=== PATIENT | male | born 1940 | race Caucasian/White ===

== ENCOUNTER 2020-10-22 09:32 | Outpatient (CLI) | payer MEDICARE, OTHER, SELFPAY ==
--- NOTE | 2020-10-22 09:53 | CT_ITS ---
WS: [id number] CTA scan of the chest with IV contrast. Additional two-dimensional coronal and sagittal reconstructio n and MIP images was performed. 10/22/2020 Clinical Data: SHORTNESS OF BREATH Comparison: None. DLP: 874.[address] scans at [facility] use at least one of these dose optimization techniques: automat ed exposure control; mA and/or kV adjustment per patient size (includes targeted exams where dose is matched to clinical indication); or iterative reconstruction. Findings: The central pulmonary arteries and peripheral pulmonary arteries fill normally with no evidence of in traluminal filling defects. No pulmonary embolic disease is noted. No nodules, masses or effusions are seen. The heart size is normal with no pericardial effusion. No p neumonia or pneumothorax is seen. Midline sternotomy sutures are present. The pulmonary arterial syst em and thoracic aorta demonstrate no abnormalities or dilatations. There is no axillary or significan t mediastinal adenopathy. The thyroid gland shows normal enhancement. The trachea bifurcates into the bronchi. The gallbladder wall is calcified with gallstones within. The visualized liver, spleen, adrenal gland s and pancreas are nonremarkable. The bones of the thoracic and upper lumbar spine show moderate osteoarthritis of the vertebral bodies .. CT/CT angio chest PE protcl [id number] Impression: 1. Negative for pulmonary embolic disease. 2. Cholelithiasis.
[2020-10-22 10:38] LABS: Blood Urea Nitrogen 9 mg/dL (8-23)
[2020-10-22] MEDS: iohexol 350 mg/mL 100 mL Btl IV (10:50)
== END 2020-10-22 09:33 | disposition home or self-care (01) ==
PROVIDERS: PCP Internal Medicine; Visit Provider Physician Assistant
DX: R06.02 Shortness of breath (principal); K80.20 Calculus of gallbladder without cholecystitis without obstruction
CPT/HCPCS: 71275; 82565; 84520; Q9967

== ENCOUNTER → 2021-07-08 11:26 | Outpatient (BNVA) | payer MEDICARE, SELFPAY | PROVIDERS: PCP Internal Medicine; Visit Provider Specialist | DX: G30.9 Alzheimer's disease, unspecified (principal); F02.80 Dementia in other diseases classified elsewhere, unspecified severity, without behavioral disturbance, psychotic disturbance, mood disturbance, and anxiety; F42.9 Obsessive-compulsive disorder, unspecified; R42 Dizziness and giddiness; R26.81 Unsteadiness on feet | CPT/HCPCS: 96116; 99204; 99205 ==

== ENCOUNTER 2021-07-27 06:00 | Outpatient (RCR) | payer MEDICARE, SELFPAY | END 2021-08-06 23:59 | disposition home or self-care (01) | LOC: SPT 06:00 | PROVIDERS: PCP Specialist; Referring Provider Specialist; Visit Provider Specialist | DX: R26.81 Unsteadiness on feet (principal); R42 Dizziness and giddiness | CPT/HCPCS: 97112; 97162 ==

== ENCOUNTER → 2021-09-07 10:49 | Outpatient (BNVA) | payer MEDICARE, SELFPAY | PROVIDERS: PCP Physician Assistant; Visit Provider Specialist | DX: G30.9 Alzheimer's disease, unspecified (principal); F02.80 Dementia in other diseases classified elsewhere, unspecified severity, without behavioral disturbance, psychotic disturbance, mood disturbance, and anxiety; F42.9 Obsessive-compulsive disorder, unspecified | CPT/HCPCS: 99213; 99214 ==

== ENCOUNTER 2024-05-05 09:17 | Emergency (ER) | payer MEDICARE, SELFPAY ==
--- NOTE | 2024-05-05 09:23 | XRR_ITS ---
PROCEDURE INFORMATION: Exam: XR Left Hand Exam date and time: 05/05/2024 9:59 AM Age: 83 years old Clinical indication: Injury or trauma; Other: Cat bite; Hand; Left; Additional info: Swelling TECHNIQUE: Imaging protocol: Radiologic exam of the left hand. Views: 3 or more views. COMPARISON: No relevant prior studies available. FINDINGS: Bones/joints: Prominent arthritic changes involve all of the IP joints as well as the 1st carpometacarpal joint. I see no bony fracture. Soft tissues: Prominent soft tissue swelling involves the base of the 2nd finger. The swelling surrounds the 2nd MCP joint. 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
[2024-05-05 09:34] VITALS: BP 159/95; PULSE 72; RESP 16; TEMP 36.8; O2SAT 98
[2024-05-05 10:04] LABS: Basophils % 0.5 %; Eosinophils # 0.1 10^3/uL (0.0-0.8); Eosinophils % 0.9 %; Hematocrit 48.4 % (37-53); Lymphocytes # 2.8 10^3/uL (0.8-4.8); Lymphocytes % 37.1 %; Mean Corpuscular HGB Conc 34.7 g/dL (30-55); Mean Corpuscular Hemoglobin 34.9 pg (27-33); Mean Corpuscular Volume 100.6 fl (82-101); Mean Platelet Volume 10.4 fL (7.4-10.4); Monocytes # 0.9 10^3/uL (0.2-0.9); Monocytes % 11.5 %; Neutrophils # 3.78 10^3/uL (1.8-7.7); Neutrophils % 49.6 %; Nucleated Red Blood Cells % 0 %; Platelet Count 200 10^3/cmm (157-399); Red Blood Count 4.81 10^6/uL (3.85-5.65); Red Cell Distribution Width 12.2 % (12.1-15.1); White Blood Count 7.63 10^3/uL (3.29-11.43)
[2024-05-05 10:10] LABS: Erythrocyte Sedimentation Rate 11 mm/hr (0-10)
--- NOTE | 2024-05-05 10:20 | W.ED.ANIMALB ---
HPI - Animal Bite General: Chief Complaint: Animal Bite Stated Complaint: left hand swelling, sent by kelli charles Time Seen by Provider: 05/05/24 09:24 History of Present Illness: 83-year-old man who was bit by a cat about 6 days ago. He has had some redness. Started having some drainage on the dorsum of his hand about 3 days ago. He has been expressing pus from this since. Over the last day it is swollen up quite a bit and he started having streaking redness up his arm. Because of this he went to urgent care who sent him to the emergency room. No systemic fevers. He says it does not hurt. He has been keeping a Band-Aid over it and it looks like may be some Neosporin and so the skin has become a bit frayed. He has no limitation of movement of his index finger. The majority of the swelling and pus is over the palmar side just over the head of the second metacarpal. Also considerable swelling on the dorsum of the head of the second metacarpal. There is streaking up his forearm on the dorsal side. No cough. No chest pain. No abdominal pain. No nausea or vomiting. Review of Systems Narrative: Constitutional symptoms: Negative except as documented in HPI. Skin symptoms: Negative except as documented in HPI. Eye symptoms: Negative except as documented in HPI. ENMT symptoms: Negative except as documented in HPI. Respiratory symptoms: Negative except as documented in HPI. Cardiovascular symptoms: Negative except as documented in HPI. Gastrointestinal symptoms: Negative except as documented in HPI. Genitourinary symptoms: Negative except as documented in HPI. Musculoskeletal symptoms: Negative except as documented in HPI. Neurologic symptoms: Negative except as documented in HPI. Psychiatric symptoms: Negative except as documented in HPI. Endocrine symptoms: Negative except as documented in HPI. PFSH ED PFSH: Social History Smoking and tobacco/nicotine status: never used tobacco/nicotine Alcohol intake: never Substance/Drug Use: never Physical Exam Narrative: EXAM NARRATIVE: General: Alert, no acute distress. Skin: Warm, dry. Primary site of infection is over the head of the second metacarpal. He has some erythema going up his second digit. Also erythema going down his hand and streaking redness going up his arm. On the palmar side over the head of the second metacarpal there is draining of pus and some D squamatization of the skin. He had had a Band-Aid over this. Looks like it has been being kept wet. There is also some swelling and fluctuance on the dorsal side of his hand there. Head: Normocephalic, atraumatic. Neck: Supple, trachea midline. Eye: Extraocular movements are intact. Ears, nose, mouth and throat: mucosa moist. Cardiovascular: Regular, Normal peripheral perfusion. Respiratory: Lungs are clear to auscultation, respirations are non-labored, breath sounds are equal, Symmetrical chest wall expansion. Gastrointestinal: Soft, Nontender, Non distended Musculoskeletal: Normal ROM, does not appear to be any tendon involvement. No pain with flexion or extension of his second digit. Neurological: Alert and oriented, No focal neurological deficit observed. Psychiatric: Cooperative, appropriate mood & affect. Course Vital Signs: Vital signs: Vital Signs Temperature 98.2 F 05/05/24 09:34 Pulse Rate 72 05/05/24 09:34 Respiratory Rate 16 05/05/24 09:34 Blood Pressure 159/95 05/05/24 09:34 Pulse Oximetry 98 05/05/24 09:34 Oxygen Delivery Me thod Room Air 05/05/24 09:34 MDM - Animal Bite Medical Decision Making Medical decision making: Differential diagnosis including but not limited to and based on the above HPI, review of systems and physical exam: N/A patient with an animal bite: Cellulitis. abscess. osteomyelitis. fracture. foreign body (i.e. tooth) Orders placed to evaluate differential diagnosis based on the above differential, HPI and physical exam Lab Review: Laboratory results were reviewed and interpreted by myself the emergency room physician. No leukocytosis, but patient does have an elevated CRP at 44 and an ESR of 11. Pro-Champ was negative. Lactate was negative. Consultation: I spoke with Dr. Gamez with orthopedics here. He does not do hands but he recommends transfer for surgery and cleanout. Consultation: I spoke with Dr. Hernandez with hand surgery at [facility] in [place]. He recommends transfer to the emergency room there for evaluation and likely surgical cleanout. We discussed the patient is refusing transfer and he has provided information on his clinic and will see the patient Tuesday morning. Recommends Augmentin as an outpatient and agrees with Unasyn. I reviewed the patient's medical record. Reexamination: I have spoken with the patient at length, several different times and he continues to refuse transfer. He continues to say that he must go take care of his animals he does not have anyone to help. I did talk with hand surgery and told him that the patient was refusing. He says he will see the patient in clinic on Tuesday at 8. He does not prefer this his recommendation is for transfer but with that being said if the patient refuses the next best chance for a decent outcome is for him to go to clinic in [facility] on Tuesday. I have discussed this with the patient and he expressed understanding. I have discussed that not going and being evaluated by the hand surgery puts him at risk for sepsis and even . I went back to talk to the patient 1 last time and he has been reconsidering. He seemed to be confused about exactly what the plan would be. His expectation is to go to [place] for evaluation and he plans on coming back tomorrow. My main concern is his ability to transport back. Assessment and plan: Cat bite Abscess Cellulitis ?Patient initially was going to go [facility] despite numerous attempts at encouraging him to be transferred for hand surgeon intervention. Finally I convinced him to go. [facility] [place] and Dr. Lr in the emergency department has accepted the patient. ?IV Unasyn here in the emergency room. I have written a prescription for Augmentin ?Patient being transferred to [facility] in [place] to the emergency room for evaluation by hand surgeon. - Discussed findings and plan with patient. Answered any questions. - All laboratory values were reviewed and interpreted personally by myself, the ER physician - All imaging was reviewed and interpreted personally by myself, the ER physician. - Evaluation and treatment of this problem were appropriate in the emergency setting Lab Data 05/05/24 09:51 05/05/24 09:51 Radiology Impressions Hand X-Ray 05/05/24 09:23 IMPRESSION: Prominent multifocal osteoarthritis with soft tissue swelling of the 2nd finger Laboratory Results WBC 7.63 10^3/uL (3.29-11.43) 05/05/24 09:51 RBC 4.81 10^6/uL (3.85-5.65) 05/05/24 09:51 Hgb 16.80 g/dL (11.27-16.99) 05/05/24 09:51 Hct 48.4 % (37-53) 05/05/24 09:51 MCV 100.6 fl (82-101) 05/05/24 09:51 MCH 34.9 pg (27-33) H 05/05/24 09:51 MCHC 34.7 g/dL (30-55) 05/05/24 09:51 RDW 12.2 % (12.1-15.1) 05/05/24 09:51 Plt Count 200 10^3/cmm (157-399) 05/05/24 09:51 MPV 10.4 fL (7.4-10.4) 05/05/24 09:51 Neut % (Auto) 49.6 % 05/05/24 09:51 Lymph % (Auto) 37.1 % 05/05/24 09:51 [place] % (Auto) 11.5 % 05/05/24 09:51 Eos % (Auto) 0.9 % 05/05/24 09:51 Baso % (Auto) 0.5 % 05/05/24 09:51 Neut # (Auto) 3.78 10^3/uL (1.8-7.7) 05/05/24 09:51 Lymph # (Auto) 2.8 10^3/uL (0.8-4.8) 05/05/24 09:51 [place] # (Auto) 0.9 10^3/uL (0.2-0.9) 05/05/24 09:51 Eos # (Auto) 0.1 10^3/uL (0.0-0.8) 05/05/24 09:51 Baso # (Auto) 0.0 10^3/uL (0.0-0.1) 05/05/24 09:51 Nucleated RBC % (auto) 0 % 05/05/24 09:51 Nucleated RBCs # 0.0 /100WBC 05/05/24 09:51 ESR 11 mm/hr (0-10) H 05/05/24 09:51 Sodium 137 mmol/L (136-145) 05/05/24 09:51 Potassium 4.3 mmol/L (3.5-5.1) 05/05/24 09:51 Chloride 98 mmol/L (98-107) 05/05/24 09:51 Carbon Dioxide 25 mmol/L (22-29) 05/05/24 09:51 Anion Gap 18.3 (5-19) 05/05/24 09:51 BUN 14 mg/dL (8-23) 05/05/24 09:51 Creatinine 1.3 mg/dL (0.7-1.2) H 05/05/24 09:51 GFR Calculation Not Reportable 05/05/24 09:51 Glucose 93 mg/dL (65-115) 05/05/24 09:51 Calculated Osmolality 284 mOsm/kg (285-295) L 05/05/24 09:51 Lactic Acid 1.0 mmol/L (0.5-2.2) 05/05/24 09:51 Calcium 9.2 mg/dL (8.5-10.5) 05/05/24 09:51 Total Bilirubin 0.6 mg/dL (0.15-1.2) 05/05/24 09:51 AST 28 U/L (0-40) 05/05/24 09:51 ALT 10 U/L (0-41) 05/05/24 09:51 Alkaline Phosphatase 110 U/L (40-130) 05/05/24 09:51 C-Reactive Protein 44.0 mg/L (0.0-4.9) H 05/05/24 09:51 Total Protein 7.8 g/dL (6.6-8.7) 05/05/24 09:51 Albumin 3.9 g/dL (3.5-5.2) 05/05/24 09:51 Globulin 3.9 g/dL (1.3-4.6) 05/05/24 09:51 Procalcitonin 0.10 ng/mL (0-0.5) 05/05/24 09:51 All radiology interpretation(s) finalized by discharge Discharge Plan Discharge Patient Disposition: Xfer Short-Term Hosp Clinical Impression: Abscess of hand Cat bite Qualifiers: Encounter type: initial encounter Qualified Code(s): W55.01XA - Bitten by cat, initial encounter Cellulitis Qualifiers: Site of cellulitis: extremity Site of cellulitis of extremity: upper extremity Laterality: right Qualified Code(s): L03.113 - Cellulitis of right upper limb Condition: Stable Referrals: Vi Chaparro PA [Primary Care Provider] - Activity Restrictions/Additional Instructions: Please follow-up with Dr. Kitchen at [facility] in [facility]. Need to be there at 8 AM on TuesdayMay 07. Do not have anything to eat or drink after midnight on Tuesday. [facility] [place] [address] If symptoms worsen, you develop fevers, confusion please return to the emergency room. Thank you for choosing [facility] for your healthcare needs today. Please realize this is an emergency room and that we are providing you with a medical screening exam and this may not be complete and all inclusive of all the testing and or work up that you may need to determine your ailment or severity of your illness. You have been screened and evaluated and felt safe for discharge. Health conditions do change or evolve sometimes and as such it is important that you follow up with your Primary Doctor to be re checked, 3-5 days is a general good time frame for follow up. You are always welcome to return to the ED for re assessment if your symptoms are worsening or you have new concerns Coding Level of Care Code ED Supervisor Finishing Room for Lyly Jerry
[2024-05-05 10:24] LABS: Alanine Aminotransferase 10 U/L (0-41); Albumin Level 3.9 g/dL (3.5-5.2); Alkaline Phosphatase 110 U/L (40-130); Anion Gap 18.3 (5-19); Aspartate Amino Transferase 28 U/L (0-40); Blood Urea Nitrogen 14 mg/dL (8-23); Calcium 9.2 mg/dL (8.5-10.5); Carbon Dioxide 25 mmol/L (22-29); Chloride 98 mmol/L (98-107); Creatinine Clr Calc Pharmacy 40.0529; Globulin 3.9 g/dL (1.3-4.6); Glucose 93 mg/dL (65-115); Osmolality Calculated 284 mOsm/kg (285-295); Potassium 4.3 mmol/L (3.5-5.1); Sodium 137 mmol/L (136-145); Total Bilirubin 0.6 mg/dL (0.15-1.2); Total Protein 7.8 g/dL (6.6-8.7)
[2024-05-05] MEDS: ampicillin-sulbactam 3 GM in sodium chloride 0.9% (plus) 50 ML IV (10:34)
[2024-05-05 11:40] VITALS: BP 165/95; PULSE 66; RESP 18; TEMP 36.7; O2SAT 97
== END 2024-05-05 13:07 | disposition short-term general hospital (02) ==
PROVIDERS: Family Medicine; Emergency Provider Emergency Medicine; PCP Physician Assistant
DX: L03.114 Cellulitis of left upper limb (principal); L02.512 Cutaneous abscess of left hand; W55.01XA Bitten by cat, initial encounter
CPT/HCPCS: 36415; 73130; 80053; 83605; 84145; 85025; 85651; 86140; 87040; 96365; 99285; J0295

== ENCOUNTER 2024-05-15 12:04 | Emergency (ER) | payer MEDICARE, SELFPAY ==
[2024-05-15 12:14] VITALS: BP 165/103; PULSE 69; RESP 16; TEMP 36.7; O2SAT 98; BMI 21.7
--- NOTE | 2024-05-15 13:14 | W.ED.ANIMALB ---
HPI - Animal Bite General: Chief Complaint: Animal Bite Stated Complaint: Rabies shot Time Seen by Provider: 05/15/24 12:55 PFSH ED PFSH: Social History Smoking and tobacco/nicotine status: never used tobacco/nicotine Alcohol intake: never Substance/Drug Use: never Course Vital Signs: Vital signs: Vital Signs Temperature 98.1 F 05/15/24 12:14 Pulse Rate 69 05/15/24 12:14 Respiratory Rate 16 05/15/24 12:14 Blood Pressure 165/103 05/15/24 12:14 Pulse Oximetry 98 05/15/24 12:14 Oxygen Delivery Me thod Room Air 05/15/24 12:14 Discharge Plan Discharge Condition: Stable Prescriptions: No Action IQN-kbtnwjoxpdqoj-gjvdgsl-caff Tablet PO sotalol 80 mg tablet 80 mg PO BID galantamine 8 mg capsule,ext rel. pellets 24 hr 8 mg PO QAM Qty: 30 2RF Rx Instructions: administer with breakfast. Referrals: Vi Chaparro PA [Primary Care Provider] - Coding Level of Care Code ED Boiler Assistant Operator for Lyly Jerry
--- NOTE | 2024-05-15 13:17 | W.ED.RECABL ---
HPI - Recheck/Abnormal Lab/Rx General: Chief Complaint: Animal Bite Stated Complaint: Rabies shot Time Seen by Provider: 05/15/24 12:55 Source: patient Mode of arrival: ambulatory Limitations: no limitations History of Present Illness: Patient is an 83-year-old male who presents to the ED today requesting a repeat rabies vaccination. Patient was initially seen on 05/05 for an infection from a cat bite to his left hand. He was subsequently seen by [facility] hand surgeon where he had surgery performed. He states prior to discharge he was given a rabies vaccination and was given a post it note that said days 0, 3, 7, 14 . No actual schedule of dates provided. He has discharge paperwork that shows rabies vaccination given on 05/07 for his day 0 . That would make him due for his day 3 shot on 05/10 which he missed. He is here now on 05/15 which is a day late for his day 7 shot. States cat bite surgical site is healing well and is bandaged/splinted today. MD complaint: other (repeat rabies vaccination) Initial visit for: animal bite Returns today for: rabies shot Symptoms since prior visit: no new symptoms Associated symptoms: none Review of Systems Const: Denies: fever(s) GI: Denies: abdominal pain, vomiting or diarrhea Neuro: Denies: headache(s) PFSH ED PFSH: Social History Smoking and tobacco/nicotine status: never used tobacco/nicotine Alcohol intake: never Substance/Drug Use: never Physical Exam Const: COMMON NORMALS: no acute distress, average body habitus, patient oriented x3, no limitations, healthy appearing, alert and well nourished Extremity: NARRATIVE EXTREMITY EXAM: L hand is bandaged/splinted from his recent surgery; states he is receiving local wound care and everything seems to be healing well-this was not removed on today's visit as he has no complaints Neuro: COMMON NORMALS: patient oriented x3 SENSORIUM/ORIENTATION: Yes alert Course Vital Signs: Vital signs: Vital Signs Temperature 98.1 F 05/15/24 12:14 Pulse Rate 69 05/15/24 12:14 Respiratory Rate 16 05/15/24 12:14 Blood Pressure 165/103 05/15/24 12:14 Pulse Oximetry 98 05/15/24 12:14 Oxygen Delivery Me thod Room Air 05/15/24 12:14 MDM - Recheck/Abnormal Lab/Rx Medical Decision Making Patient missed his day 3 shot so today will count as that. He will then be scheduled four days from now for his day 7 and seven days following this for his day 14 . No radiology studies performed this visit Discharge Plan Discharge Patient Disposition: Home Clinical Impression: Encounter for repeat administration of rabies vaccination Condition: Stable Prescriptions: No Action YYK-qfytvuesitxek-odghcpq-caff Tablet PO sotalol 80 mg tablet 80 mg PO BID galantamine 8 mg capsule,ext rel. pellets 24 hr 8 mg PO QAM Qty: 30 2RF Rx Instructions: administer with breakfast. Discharge Orders: Discharge ED (Routine); Ordered 05/15/24 Ordered By: Steffanie Saenz Referrals: Vi Chaparro PA [Primary Care Provider] - Activity Restrictions/Additional Instructions: As we discussed you missed your day 3 rabies vaccination so today's shot will count as that. You will be given a schedule for your new day 7 and day 14 shot. Coding Level of Care Code ED Research Fellow for Lyly Jerry
[2024-05-15] MEDS: rabies vaccine 2.5 unit SDV IM (13:38)
== END 2024-05-15 14:15 | disposition home or self-care (01) ==
PROVIDERS: Emergency Provider Physician Assistant; PCP Physician Assistant
DX: Z29.14 Encounter for prophylactic rabies immune globulin (principal)
CPT/HCPCS: 90471; 90675; 99284

== ENCOUNTER 2024-05-19 07:16 | Emergency (ER) | payer MEDICARE, SELFPAY ==
[2024-05-19 07:21] VITALS: BP 139/76; PULSE 65; RESP 16; TEMP 36.6; O2SAT 95
[2024-05-19] MEDS: rabies vaccine 2.5 unit SDV IM (07:32)
--- NOTE | 2024-05-19 07:40 | ED_ITS ---
HPI - Recheck/Abnormal Lab/Rx General: Chief Complaint: Recheck/Abnormal Lab/Rx Stated Complaint: Rabies Shot Time Seen by Provider: 05/19/24 07:21 Source: patient Mode of arrival: ambulatory History of Present Illness: 83-year-old male previously seen for cat bite returns for rabies vaccine this is number for rabies vaccine for him. He was transferred out for a washout of an infected joint that is doing well he is following up with hand surgery as a splint on his hand PFS ED PFSH: Social History Smoking and tobacco/nicotine status: never used tobacco/nicotine Alcohol intake: never Substance/Drug Use: never Physical Exam Narrative: EXAM NARRATIVE: No acute distress awake and alert splint on the left hand Course Vital Signs: Vital signs: Vital Signs Temperature 97.9 F 05/19/24 07:21 Pulse Rate 65 05/19/24 07:21 Respiratory Rate 16 05/19/24 07:21 Blood Pressure 139/76 05/19/24 07:21 Pulse Oximetry 95 05/19/24 07:21 Oxygen Delivery Me thod Room Air 05/19/24 07:21 MDM - Recheck/Abnormal Lab/Rx Medical Decision Making Rabies vaccine given patient advised to follow-up with the last rabies vaccines infusion center. Medical Records I reviewed the patient's medical records. No radiology studies performed this visit Discharge Plan Discharge Patient Disposition: Home Clinical Impression: Encounter for repeat administration of rabies vaccination Condition: Stable Prescriptions: No Action [id number]-iyiofbfaygmwj-hjcppmf-caff Tablet PO sotalol 80 mg tablet 80 mg PO BID galantamine 8 mg capsule,ext rel. pellets 24 hr 8 mg PO QAM Qty: 30 2RF Rx Instructions: administer with breakfast. Discharge Orders: Discharge ED (Routine); Ordered 05/19/24 Ordered By: Garth Victoria Referrals: Vi Chaparro PA [Primary Care Provider] - Discharge Diet: Usual diet Discharge Activity: Resume usual activity Patient Instructions: Opioid Safety, Pain Management Activity Restrictions/Additional Instructions: You were seen today for repeat administration of rabies vaccine. Recommend you complete your rabies vaccine series at the outpatient infusion clinic. Coding Level of Care Code ED Territory Account Manager for Lyly Jerry
== END 2024-05-19 07:47 | disposition home or self-care (01) ==
PROVIDERS: Emergency Provider Family Medicine; PCP Physician Assistant
DX: Z29.14 Encounter for prophylactic rabies immune globulin (principal); Z20.3 Contact with and (suspected) exposure to rabies; Z23 Encounter for immunization; W55.01XA Bitten by cat, initial encounter
CPT/HCPCS: 90471; 90675; 99283

== ENCOUNTER 2024-05-26 09:18 | Emergency (ER) | payer MEDICARE, SELFPAY ==
[2024-05-26 09:37] VITALS: BP 159/78; PULSE 61; RESP 18; TEMP 36.7; O2SAT 99
[2024-05-26] MEDS: rabies vaccine 2.5 unit SDV IM (09:49)
--- NOTE | 2024-05-26 10:18 | ED_ITS ---
HPI - General Adult General: Chief complaint: General Medical Stated complaint: needs final rabies shot Time Seen by Provider: 05/26/24 09:33 History of Present Illness: 83-year-old male presents emergency room meaning of rabies vaccination is less than his series. No complaints of problems with previous vaccinations PFS ED PFSH: Social History Smoking and tobacco/nicotine status: never used tobacco/nicotine Alcohol intake: never Substance/Drug Use: never Physical Exam Const: COMMON NORMALS: no acute distress GENERAL APPEARANCE: cooperative and comfortable ORIENTATION/CONSCIOUSNESS: Yes awake, Yes oriented to person, Yes oriented to place and Yes oriented to time HENMT: COMMON NORMALS: normocephalic, atraumatic and hearing grossly normal bilaterally HEAD & SCALP: normocephalic and atraumatic Resp: COMMON NORMALS: normal respiratory effort and No retractions Neuro: SENSORIUM/ORIENTATION: Yes oriented to person, Yes oriented to place and Yes oriented to time Course Vital Signs: Vital signs: Vital Signs Temperature 98.1 F 05/26/24 09:37 Pulse Rate 61 05/26/24 09:37 Respiratory Rate 18 05/26/24 09:37 Blood Pressure 159/78 05/26/24 09:37 Pulse Oximetry 99 05/26/24 09:37 Oxygen Delivery Me thod Room Air 05/26/24 09:37 MDM - General Adult Medical Decision Making Completed rabies vaccine series follow-up with primary care No radiology studies performed this visit Discharge Plan Discharge Patient Disposition: Home Clinical Impression: Encounter for repeat administration of rabies vaccination Condition: Stable Prescriptions: No Action YOG-esqvclixqgmck-oxekndl-caff Tablet PO sotalol 80 mg tablet 80 mg PO BID galantamine 8 mg capsule,ext rel. pellets 24 hr 8 mg PO QAM Qty: 30 2RF Rx Instructions: administer with breakfast. Discharge Orders: Discharge ED (Routine); Ordered 05/26/24 Ordered By: Garth Victoria Referrals: Vi Chaparro PA [Primary Care Provider] - Discharge Diet: Usual diet Discharge Activity: Resume usual activity Patient Instructions: Rabies Vaccine (By injection) (Imovax Rabies, RabAvert), Opioid Safety, Pain Management Activity Restrictions/Additional Instructions: Thank you for choosing [facility] for your healthcare needs today. It is very important that you follow up as instructed or that you return to the Emergency Department should you have concerns or if your condition changes or worsens in any way. Follow-up with your primary care doctor Coding Level of Care Code ED Electrical Instrument Technician for Lyly Jerry
[2024-05-26 10:25] VITALS: BP 155/97; PULSE 58; O2SAT 97
== END 2024-05-26 10:26 | disposition home or self-care (01) ==
PROVIDERS: Emergency Provider Family Medicine; PCP Physician Assistant
DX: Z29.14 Encounter for prophylactic rabies immune globulin (principal); Z20.3 Contact with and (suspected) exposure to rabies; Z23 Encounter for immunization
CPT/HCPCS: 90471; 90675; 99283

== ENCOUNTER 2024-11-08 23:56 | Inpatient (IN) | payer MEDICARE, SELFPAY ==
[2024-11-08 23:57] VITALS: BP 92/57; PULSE 83; RESP 8; O2SAT 97; BMI 25.0
[2024-11-09] VITALS (15 sets, daily range): BP systolic 84–145; BP diastolic 46–84; PULSE 50–92; RESP 14–25; TEMP 36.7–36.9; O2SAT 90–100
--- NOTE | 2024-11-09 00:07 | XRR_ITS ---
PROCEDURE INFORMATION: Exam: XR Right Hip Exam date and time: 11/09/2024 12:30 AM Age: 84 years old Clinical indication: Injury or trauma; Fall; Blunt trauma (contusions or hematomas) and fracture of pelvis & hip; Right; Hip and pelvic region; Traumatic fracture; Neck of femur, midcervical; Not specified; Additional info: Fall R/O fracture TECHNIQUE: Imaging protocol: Radiologic exam of the right hip. Views: 1 view hip with pelvis when performed. COMPARISON: No relevant prior studies available. FINDINGS: Bones/joints: Spiral fracture of the proximal femur with anterior and lateral angulation of the proximal fracture component. Fracture extends through the lesser trochanter where there is comminution and avulsion of the lesser trochanter medially. Substantial impaction of the fracture is seen by at least 7 cm. Diffuse degenerative change throughout the visualized osseous structures. Soft tissues: Unremarkable. Vasculature: Diffuse peripheral arterial vascular disease is noted. XR/XR hip RT 2-3V wo/w pel* [id number] IMPRESSION: Spiral fracture of the proximal femur with extension into the lesser trochanter as highlighted above.
[2024-11-09 01:11] LABS: Basophils % 0.2 %; Eosinophils % 0.1 %; Hematocrit 33.2 % (37-53); Lymphocytes # 1.9 10^3/uL (0.8-4.8); Lymphocytes % 20.8 %; Mean Corpuscular HGB Conc 32.5 g/dL (30-55); Mean Corpuscular Hemoglobin 35.8 pg (27-33); Mean Corpuscular Volume 109.9 fl (82-101); Mean Platelet Volume 11.2 fL (7.4-10.4); Monocytes # 0.6 10^3/uL (0.2-0.9); Monocytes % 6.4 %; Neutrophils # 6.68 10^3/uL (1.8-7.7); Neutrophils % 72.2 %; Nucleated Red Blood Cells % 0 %; Platelet Count 116 10^3/cmm (157-399); Red Blood Count 3.02 10^6/uL (3.85-5.65); Red Cell Distribution Width 12.8 % (12.1-15.1); White Blood Count 9.25 10^3/uL (3.29-11.43)
--- NOTE | 2024-11-09 01:22 | PC.NURSE ---
Grandgaldino Lobato requested update on patient; this nurse and housetrailer servicer explained to grandgaldino that nursing staff could not give out information on patient as he was not in the chart. Luis Alfredo and his friend stated that patient was not in contact with any of his daughters anymore, and Luis Alfredo had POA. Paperwork sent to Kori CHRISTENSENproperties supervisor.
[2024-11-09 01:29] LABS: Blood Urea Nitrogen 17 mg/dL (8-23); Carbon Dioxide 20 mmol/L (22-29); Chloride 104 mmol/L (98-107); Creatinine Clr Calc Pharmacy 41.8722; Glucose 144 mg/dL (65-115); Osmolality Calculated 292 mOsm/kg (285-295); Sodium 139 mmol/L (136-145)
--- NOTE | 2024-11-09 01:39 | CTR_ITS ---
PROCEDURE INFORMATION: Exam: CTA Right Lower Extremity With Contrast Exam date and time: 11/09/2024 2:18 AM Age: 84 years old Clinical indication: Injury or trauma; Fall; Blunt trauma; Lower leg; Bilateral; Additional info: Fall with fractured right hip and no pulses TECHNIQUE: Imaging protocol: Computed tomographic angiography of the right lower extremity with contrast. 3D rendering (Not supervised by radiologist): MIP and/or 3D reconstructed images were created by the technologist. Radiation optimization: All CT scans at this facility use at least one of these dose optimization techniques: automated exposure control; mA and/or kV adjustment per patient size (includes targeted exams where dose is matched to clinical indication); or iterative reconstruction. Contrast material: OMNI 350; Contrast volume: 125 ml; Contrast route: INTRAVENOUS (IV); COMPARISON: CR (LOW EXM, ) 11/09/2024 12:30 AM RADIATION DOSE METRICS: Total DLP (mGy-cm): 968.43 FINDINGS: Celiac trunk and mesenteric arteries: 50-75% narrowing of the mid superior mesenteric artery (series 5, image 92). Multifocal regions of 50% narrowing of the proximal celiac artery 50-75% narrowing of the ostia of the bilateral renal arteries. Right femoral/popliteal arteries: Gradual non opacification beginning of the distal femoral artery extending through the trifurcation. Right infrapopliteal arteries: Non opacified. Other arteries: Severe calcified and noncalcified atherosclerotic disease. Severe peripheral arterial vascular disease. Similar findings of the left femoral/popliteal arteries as well as the left infrarenal popliteal arteries. Veins: Left distal ureterectasis multifocal calcified pelvic phleboliths. Pancreas: Mild pancreatic atrophy. Kidneys and ureters: Multifocal renal atrophy bilaterally. Left pelviectasis. Stomach and bowel: Diverticulosis without evidence of diverticulitis, mild colonic stool burden. Urinary bladder: Extremely dilated bladder with what is likely a left lateral distended diverticulum. Reproductive: Prostatomegaly. Bones/joints: Spiral fracture through the right proximal femur extending into the base of the lesser trochanter where there is comminution and anteromedial displacement of the lesser trochanter. Proximal fracture component is angulated anteriorly and laterally. About 7 cm of impaction is seen. Soft tissues: Associated deep inflammatory change/hematoma adjacent the fracture site. Gallbladder and biliary system: Cholelithiasis with calcifications of the gallbladder wall. CT/[place] [id number] IMPRESSION: 1. Proximal femur fracture as noted above. 2. Likely phase related non opacification of the bilateral lower extremity arteries beginning at the distal femoral arteries bilaterally, given the gradual non opacification of the arterial vasculature. However, this should be correlated with physical exam as thrombosis of the arterial vasculature cannot be entirely excluded. 3. Severe atherosclerotic disease to include the intra-abdominal and peripheral arteries visualized on this examination. 4. 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 Correlate with chronic signs and symptoms of gallbladder dysfunction. 5. Urinary bladder is extremely dilated with regions of pelviectasis and ureterectasis as above. Likely some degree of chronic bladder outlet obstruction given the appearance of the prostate and probable dilated left of midline bladder diverticulum. Consider catheterization in the correct clinical context.
--- NOTE | 2024-11-09 01:40 | PC.NURSE ---
Patient gave this nurse and warehouse assistant Kori verbal consent to update masha Lobato.
--- NOTE | 2024-11-09 02:01 | CTR_ITS ---
PROCEDURE INFORMATION: Exam: CT Cervical Spine Without Contrast Exam date and time: 11/09/2024 2:10 AM Age: 84 years old Clinical indication: Injury or trauma; Fall; Blunt trauma TECHNIQUE: Imaging protocol: Computed tomography of the cervical spine without contrast. Radiation optimization: All CT scans at this facility use at least one of these dose optimization techniques: automated exposure control; mA and/or kV adjustment per patient size (includes targeted exams where dose is matched to clinical indication); or iterative reconstruction. COMPARISON: CR XR cervical spine 3V* [id number] 06/22/2018 7:53 PM RADIATION DOSE METRICS: Total DLP (mGy-cm): 261.97 FINDINGS: Bones/joints: No acute fracture. There is grade 1 anterolisthesis of C4 on C5, C5 on C6, and C7 on T1. There is cpqm-ky-pxcucqqw multilevel degenerative disc disease. There is nhzg-qj-wsjofnrz spinal canal stenosis at C3-C4 secondary to disc osteophyte ridging and ligamentum hypertrophy. Otherwise the spinal canal appears patent. Lungs: Lung apices are normal. Soft tissues: Unremarkable. CT/CT cervical spin wo con* [id number] IMPRESSION: No acute findings.
--- NOTE | 2024-11-09 02:02 | CTR_ITS ---
PROCEDURE INFORMATION: Exam: CT Head Without Contrast Exam date and time: 11/09/2024 2:07 AM Age: 84 years old Clinical indication: Injury or trauma; Fall; Blunt trauma (contusions or hematomas); Consciousness not specified; Additional info: Rule out bleed TECHNIQUE: Imaging protocol: Computed tomography of the head without contrast. Radiation optimization: All CT scans at this facility use at least one of these dose optimization techniques: automated exposure control; mA and/or kV adjustment per patient size (includes targeted exams where dose is matched to clinical indication); or iterative reconstruction. COMPARISON: CT head wo con* [id number] 06/22/2018 6:35 PM RADIATION DOSE METRICS: Total DLP (mGy-cm): 1056.22 FINDINGS: Brain: There is mild to moderate small vessel disease. There is no evidence of acute parenchymal hemorrhage, extra-axial collection, or acute infarction. There is no mass effect, midline shift, or downward herniation. Cerebral ventricles: No ventriculomegaly. Paranasal sinuses: Visualized sinuses are unremarkable. No fluid levels. Mastoid air cells: Visualized mastoid air cells are well aerated. Bones: Unremarkable. No acute fracture. Soft tissues: Unremarkable. CT/CT head wo con* [id number] IMPRESSION: Vojs-ex-svnmjbal small vessel disease. No evidence of acute intracranial process.
[2024-11-09] MEDS: sodium chloride 0.9% 1,000 ML 999 ML IV (03:04)
[2024-11-09] MEDS: iohexol 350 mg/mL 500 mL Btl (per mL) IV (03:07)
--- NOTE | 2024-11-09 05:55 | PM.HP ---
Providers/Chief Complaint Primary Care Provider: Vi Chaparro Chief Complaint: Fall History of Present Illness Israel Hardin is a 84 year old male with history of dementia, lives alone, lives with his grandson, estranged from his 4 daughters, uses cane for ambulation, presented after sustaining a fall, grandson called 911, in the ER he was diagnosed with right proximal femur fracture, his lower extremities are extremely cold on palpation, CTA lower extremity showed severe atherosclerotic disease no contrast running below popliteal noted likely contrast phasing out, requesting arterial duplex study, please note EMS gave patient ketamine and he was confused at the time of arrival in the ER when I first examined him, after the workup I am examining him at 6 AM, patient is awake and alert stating that he has 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 and grandson helps him out, he uses a cane for ambulation, patient is stating that he does not remember anything about falling, patient is stating that secondary to 3 cardiac arrest in 2019 he has lost ability to orient himself and balance himself that is why he keeps falling. Previous note of Dr. Rowley reviewed for dementia evaluation. Workup in the ER revealed anemia, obstructive uropathy, Cooper catheter requested, creatinine 1.4 clinically patient looks dehydrated Dr. Walton consulted I would not start patient on heparin in anticipation of hip surgery Requesting records from [facility] Review of Systems Const: Denies: fever(s) Eyes: Denies: change in vision ENMT: Denies: throat pain Card: Denies: chest pain Resp: Reports: dyspnea GI: Denies: abdominal pain : Denies: flank pain Musc: Reports: back pain, joint pain and limited range of motion Skin/Breast: Reports: rash Neuro: Denies: headache(s) Psych: Reports: anxiety Medications/Allergies Home Medications Medication Instructions Recorded Confirmed Last Taken Type DYH-cszdtdyjcpwjo-nrjajxzqaz-caffeine tab PO 07/08/21 09/07/21 Unknown History tablet galantamine 8 mg 24 hr 8 mg PO QAM #30 caps 07/08/21 09/07/21 Unknown Rx capsule,extended release sotalol 80 mg tablet 80 mg PO BID 07/08/21 09/07/21 Unknown History Allergies Allergy/AdvReac Type Severity Reaction Status Date / Time No Known Allergies Allergy Verified 05/05/24 09:40 PFSH Acute PFSH: Medical History Obsessive compulsive disorder Alzheimer disease Social History Smoking and tobacco/nicotine status: never used tobacco/nicotine Alcohol intake: never Substance/Drug Use: never Vitals/I&O/Wt Last Vital Signs Pulse 65 11/09/24 04:35 Resp 25 H 11/09/24 04:35 BP 126/84 11/09/24 04:35 Pulse Ox 90 11/09/24 04:35 O2 Del Method Room Air 11/09/24 04:35 11/08/24 11/08/24 11/09/24 14:59 22:59 06:59 Intake Total 1800 / 1800 Balance 1800 / 1800 Weight last 48 hrs Weight 78.925 kg Physical Exam Narrative: Patient is awake and alert Signs of confusion improved No signs of meningitis Cognitive impairment Dehydrated S1, S2 Hemodynamically stable Currently on room air Complaining of hip pain Lower extremities are extremely cold, tip of the toes cyanotic appearance, dorsalis pedis pulses not palpable Onychomycosis Abdomen mildly tender hypogastric region Patient is AO x 3 No active focal deficit Data 11/09/24 01:01 11/09/24 01:01 A&P Assessment and plan (1) Bladder outlet obstruction: (2) Dehydration: (3) IGGY (acute kidney injury): (4) Hip fracture, right: Plan Right hip fracture, Spiral fracture right femur Patient will stay n.p.o. Dr. Walton consulted Start IV fluids Will request records from [facility] patient is endorsing history of valve replacement and 3 cardiac arrest 2018 I would like to request an echo before surgery, preoperative risk stratification, patient is not a reliable historian considering history of dementia, Cooper catheter to be placed IGGY: Bladder out obstruction related to prostate megaly, Cooper catheter to be placed Alzheimer's dementia: Patient was given ketamine by EMS he was confused at the time of arrival however at 6 AM his mentation is much better and improved he is AO x 3, no active focal deficit Is able to tell me above-mentioned HPI He is able to tell me that in case he gets confused his grandson should be approached ,medical DPOA CT head unremarkable Lower extremity weak pulses Cold feet, tip of the toes with cyanotic appearance, requested arterial duplex, CTA lower extremity showed severe atherosclerosis, acute thrombus of arterial vasculature not excluded At this point I would not start patient on heparin drip in anticipation of surgery, further plan will be made after reviewing duplex study Patient will need further vascular evaluation by cardiology in the morning Patient is stating that in case his heart stops this time he does not want to be resuscitated However considering history of dementia this should be readdressed, grandson not at the bedside at this point N.p.o. DVT prophylaxis: Will need heparin after surgery Attestations Medical Necessity Statement*: Anticipating more than 2 midnights Diagnoses Bladder outlet obstruction N32.0 Dehydration E86.0 IGGY (acute kidney injury) N17.9 Hip fracture, right S72.001A
--- NOTE | 2024-11-09 05:59 | ED_ITS ---
HPI - Fall 2 General: Chief Complaint: Fall Stated Complaint: Fall Time Seen by Provider: 11/09/24 00:07 History of Present Illness: 84-year-old male presented to the emerge ncy department via EMS after a fall with concern for right hip fracture. EMS gave the patient 100 mg of ketamine for pain management with transferring. Patient was sedated and not able to answer any questions. Related Data Home Medications Medication Instructions Recorded Confirmed ODC-dmkezixkddlkm-stcszgsqyh-caffeine tab PO 07/08/21 09/07/21 tablet sotalol 80 mg tablet 80 mg PO BID 07/08/21 09/07/21 Previous Rx's Medication Instructions Recorded galantamine 8 mg 24 hr 8 mg PO QAM #30 caps 07/08/21 capsule,extended release Allergies Allergy/AdvReac Type Severity Reaction Status Date / Time No Known Allergies Allergy Verified 05/05/24 09:40 [facility] ED 2 PFSH: Medical History Obsessive compulsive disorder Alzheimer disease Social History Smoking and tobacco/nicotine status: never used tobacco/nicotine Alcohol intake: never Substance/Drug Use: never Physical Exam 2 Const: COMMON NORMALS: no acute distress GENERAL APPEARANCE: other (Sedated, But arousable) HENMT: COMMON NORMALS: normocephalic HEAD & SCALP: normocephalic Eye: COMMON NORMALS: EOMs intact bilaterally Neck/C-Spine: COMMON NORMALS: full ROM and supple Resp: COMMON NORMALS: normal respiratory effort, No retractions and clear to auscultation bilaterally AUSCULTATION: clear to auscultation bilaterally Cardio: COMMON NORMALS: regular rate, regular rhythm, No gallops present (Cardio) and No murmurs present (Cardio) RATE: regular rate RHYTHM: r egular rhythm GI: COMMON NORMALS: Soft to palpation and non-tender PALPATION: Yes Soft to palpation Extremity: GENERAL: Yes pulses abnormal (Absent dorsalis pedis and posterior tibial pulses bilaterally. ) and Yes other findings (Right leg shortened and laterally rotated) Skin: COMMON NORMALS: no rashes or lesions noted GENERAL SKIN EXAM: no rashes or lesions noted Course 2 Vital Signs: Vital signs: Vital Signs Pulse Rate 58 L 11/09/24 05:58 Respiratory Rate 17 11/09/24 05:58 Blood Pressure 120/66 11/09/24 05:58 Pulse Oximetry 100 11/09/24 05:58 Oxygen Delivery Me thod Room Air 11/09/24 05:58 MDM - Fall Medical Decision Making 84-year-old male presents to the Emergency department for evaluation of right hip fracture. Patient's initial x-ray shows significant spiral fracture of the right hip. Concern for vascular injury lower CTA was conducted. This demonstrated possible concern for thrombus of the arterial vasculature of extremities bilaterally, but no vascular injury from the fracture. Incidental findings on the CT included cholelithiasis with early porcelain gallbladder. Urinary bladder dilated likely secondary to outlet obstruction. Cooper catheter was placed and the patient to help with the bowel obstruction. Patient would likely need to have his gallbladder removed nonurgently as an outpatient. Of note patient did have anemia down to 10.8. Case discussed with Dr Walton who agreed that the patient would need surgery but deferred admission to medicine. Dr Francois agreed to admit the patient. Patient was then admitted to [facility]. Lab Data 11/09/24 01:01 11/09/24 01:01 Radiology Impressions Hip/Pelvis X-Ray 11/09/24 00:07 IMPRESSION: Spiral fracture of the proximal femur with extension into the lesser trochanter as highlighted above. Lower Extremity CTA 11/09/24 01:39 IMPRESSION: 1. Proximal femur fracture as noted above. 2. Likely phase related non opacification of the bilateral lower extremity arteries beginning at the distal femoral arteries bilaterally, given the gradual non opacification of the arterial vasculature. However, this should be correlated with physical exam as thrombosis of the arterial vasculature cannot be entirely excluded. 3. Severe atherosclerotic disease to include the intra-abdominal and peripheral arteries visualized on this examination. 4. 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 Correlate with chronic signs and symptoms of gallbladder dysfunction. 5. Urinary bladder is extremely dilated with regions of pelviectasis and ureterectasis as above. Likely some degree of chronic bladder outlet obstruction given the appearance of the prostate and probable dilated left of midline bladder diverticulum. Consider catheterization in the correct clinical context. ADDENDUM: 11/09/24 0522 ADDENDUM: The above findings and impression were discussed with care provider on 11/09/2024 at 5:[address] 11/09/24 02:01 IMPRESSION: No acute findings. Head CT 11/09/24 02:02 IMPRESSION: Agjn-pe-rhhabwim small vessel disease. No evidence of acute intracranial process. Laboratory Results WBC 9.25 10^3/uL (3.29-11.43) 11/09/24 01:01 RBC 3.02 10^6/uL (3.85-5.65) L 11/09/24 01:01 Hgb 10.80 g/dL (11.27-16.99) L 11/09/24 01:01 Hct 33.2 % (37-53) L 11/09/24 01:01 MCV 109.9 fl (82-101) H 11/09/24 01:01 MCH 35.8 pg (27-33) H 11/09/24 01:01 MCHC 32.5 g/dL (30-55) 11/09/24 01:01 RDW 12.8 % (12.1-15.1) 11/09/24 01:01 Plt Count 116 10^3/cmm (157-399) L 11/09/24 01:01 MPV 11.2 fL (7.4-10.4) H 11/09/24 01:01 Neut % (Auto) 72.2 % 11/09/24 01:01 Lymph % (Auto) 20.8 % 11/09/24 01:01 Tillman % (Auto) 6.4 % 11/09/24 01:01 Eos % (Auto) 0.1 % 11/09/24 01:01 Baso % (Auto) 0.2 % 11/09/24 01:01 Neut # (Auto) 6.68 10^3/uL (1.8-7.7) 11/09/24 01:01 Lymph # (Auto) 1.9 10^3/uL (0.8-4.8) 11/09/24 01:01 Tillman # (Auto) 0.6 10^3/uL (0.2-0.9) 11/09/24 01:01 Eos # (Auto) 0.0 10^3/uL (0.0-0.8) 11/09/24 01:01 Baso # (Auto) 0.0 10^3/uL (0.0-0.1) 11/09/24 01:01 Nucleated RBC % (auto) 0 % 11/09/24 01:01 Nucleated RBCs # 0.0 /100WBC 11/09/24 01:01 Sodium 139 mmol/L (136-145) 11/09/24 01:01 Potassium 4.0 mmol/L (3.5-5.1) 11/09/24 01:01 Chloride 104 mmol/L (98-107) 11/09/24 01:01 Carbon Dioxide 20 mmol/L (22-29) L 11/09/24 01:01 Anion Gap 19.0 (5-19) 11/09/24 01:01 BUN 17 mg/dL (8-23) 11/09/24 01:01 Creatinine 1.4 mg/dL (0.7-1.2) H 11/09/24 01:01 GFR Calculation Not Reportable 11/09/24 01:01 Glucose 144 mg/dL (65-115) H 11/09/24 01:01 Calculated Osmolality 292 mOsm/kg (285-295) 11/09/24 01:01 Calcium 8.0 mg/dL (8.5-10.5) L 11/09/24 01:01 All radiology interpretation(s) finalized by discharge Discharge Plan Discharge Patient Disposition: Admitted As Inpatient Clinical Impression: Acute urinary obstruction, Porcelain gallbladder, Peripheral vascular disease Closed fracture of right hip Qualifiers: Encounter type: initial encounter Qualified Code(s): S72.001A - Fracture of unspecified part of neck of right femur, initial encounter for closed fracture Anemia Qualifiers: Anemia type: unspecified type Qualified Code(s): D64.9 - Anemia, unspecified Condition: Stable Coding Level of Care Code ED Buyer Tobacco Head for Lyly Jerry
--- NOTE | 2024-11-09 06:06 | USCV_ITS ---
Israel Hardin Age: 84 Gender: M : 1940 Exam Date: 11/09/2024 08:15 Ordering Phys: Kandy Joy MD Technologist: Kehinde Anthony Exam Location: [facility] Indication: pre op BP: 93 / 56 HR: 52 Rhythm: Sinus Technical Quality: Adequate MEASUREMENTS (Male / Female) Normal Values 2D ECHO LV Diastolic Diameter PLAX 2.0 cm 4.2 - 5.9 / 3.9 - 5.3 cm IVS Diastolic Thickness 1.2 cm 0.6 - 1.0 / 0.6 - 0.9 cm IVS Systolic Thickness 1.4 cm LVPW Diastolic Thickness 2.0 cm 0.6 - 1.0 / 0.6 - 0.9 cm LVPW Systolic Thickness 1.3 cm LVOT Diameter 2.0 cm LV Ejection Fraction 2D Teich 43.5 % LV Ejection Fraction MOD 4C 38.6 % LV Ejection Fraction MOD 2C 59.7 % LV Ejection Fraction 2C AL 59.1 % LA Diameter 3.2 cm RA Systolic Volume 4C AL 42.8 ml RA Systolic Volume 4C MOD 43.2 ml LA Sys Volume AL 50.3 cm cubed LA Sys Volume Index AL 25.4 cm cubed/m squared Aorta at Sinotubular Diameter 2.3 cm IVC Diameter 1.5 cm M-MODE LA Ao Ratio MM 1.4 AV Cusp Separation MM 0.9 cm DOPPLER AV Peak Velocity 149.7 cm/s AV Area Cont Eq vti 2.0 cm squared AV Area Cont Eq pk 2.5 cm squared MV Peak Velocity 103.0 cm/s MV Area PHT 4.1 cm squared Mitral E to A Ratio 0.6 TV Peak Velocity 239.0 cm/s TR Peak Velocity 240.0 cm/s TR Peak Gradient 23.0 mmHg TR Mean Velocity 187.0 cm/s TR Mean Gradient 15.3 mmHg TR Velocity Time Integral 76.4 cm PV Peak Velocity 131.0 cm/s RV Ejection Time 0.3 s FINDINGS Left Ventricle Technically limited quality echocardiogram because of poor ultrasonic windows. LV systolic function is mildly reduced with EF of 45 to 50%. Mild global hypokinesis. Grade 1 diastolic dysfunction Right Ventricle Grossly normal Right Atrium Normal in size Left Atrium Normal in size Mitral Valve Grossly normal. Mild mitral regurgitation. Aortic Valve Grossly normal. No significant stenosis. Trace aortic regurgitation. Tricuspid Valve Insufficient TR jet to calculate RVSP Pulmonic Valve Not well visualized Pericardium Normal Aorta Normal in size IVC Appears to be normal CONCLUSIONS Technically limited quality echocardiogram because of poor ultrasonic windows. LV systolic function is mildly reduced with EF of 45 to 50%. Grade 1 diastolic dysfunction. Mild mitral regurgitation. Trace aortic regurgitation. No comparison studies are available. Alessandro Santiago MD (Electronically Signed) Final Date: 09 November 2024 10:55 S
--- NOTE | 2024-11-09 06:11 | USR_ITS ---
PROCEDURE INFORMATION: Exam: US Duplex Bilateral Lower Extremity Arteries Exam date and time: 11/09/2024 9:08 AM Age: 84 years old Clinical indication: Other: Weak pulses TECHNIQUE: Imaging protocol: Real-time ultrasound scan of the arteries of the bilateral lower extremities with 2-D angulo scale, color Doppler flow and spectral waveform analysis. Images documented and saved. COMPARISON: [place] [id number] 11/09/2024 2:18 AM FINDINGS: Right STACEY proximal: Triphasic flow with a peak systolic velocity of 75 cm/s Right STACEY mid: Triphasic flow with a peak systolic velocity of 102 cm/s Right STACEY distal: Triphasic flow with a peak systolic velocity of 66 cm/s Right NURSING INFORMATICS SPECIALIST: Triphasic flow with a peak systolic velocity of 187 cm/s Right SFA proximal: Triphasic flow with a peak systolic velocity of 95 cm/s Right SFA mid: Triphasic flow with a peak systolic velocity of 90 cm/s Right SFA distal: Triphasic flow with a peak systolic velocity of 60 cm/s Right popliteal artery: Triphasic flow with a peak systolic velocity of 51 cm/s Right CLINICAL EDITOR: Triphasic flow with a peak systolic velocity of 61 cm/s Right DPA: Unable to assess secondary to patient hip fracture and inability to access right DPA. Right brachial pressure 114/59. Unable to obtain right NAYELI secondary to inability to compress ankle vessels. Left Ca proximal: Triphasic flow with a peak systolic velocity of 74 cm/s Left STACEY mid: Triphasic flow with a peak systolic velocity of 62 cm/s Left Ca distal: Triphasic flow with a peak systolic velocity of 85 cm/s Left NURSING INFORMATICS SPECIALIST: Triphasic flow with a peak systolic velocity of 106 cm/s Left SFA proximal: Triphasic flow with a peak systolic velocity of 79 cm/s Left SFA mid: Triphasic flow with a peak systolic velocity of 66 cm/s Left SFA distal: Triphasic flow with a peak systolic velocity of 57 cm/s Left popliteal artery: Triphasic flow with a peak systolic velocity of 60 cm/s Left CLINICAL EDITOR: Triphasic flow with a peak systolic velocity of 72 cm/s Left DPA: Triphasic flow with a peak systolic velocity of 102 cm/s Left brachial pressure 125/81. Unable to assess left NAYELI secondary to inability to compress left ankle vessels. Please note that the Doppler rhythm of both lower extremities was irregular. Recommend correlation with EKG. US/[place] [id number] IMPRESSION: No definite stenosis or occlusion is appreciated.
[2024-11-09] MEDS: dextrose 5%-sod chloride 0.9% 1,000 ML 75 ML IV (06:18)
[2024-11-09 07:04] LABS: Creatine Phosphokinase 168 U/L (39-308); Thyroid Stimulating Hormone 2.04 uIU/mL (0.27-4.20); Vitamin B12 484 pg/mL (232-1245)
--- NOTE | 2024-11-09 07:07 | ECG_ITS ---
[facility] Test Date: 2024-11-09 Pat Name: Israel Hardin Department: Room: Gender: Male Clerical Support: : 1940 Requested By: Kandy Joy Order Number: [id number] Geraldine MD: Carlos Manuel Ocasio M.D. Measurements Intervals [place] Rate: 63 P: 67 [place]: 129 QRS: 4 QRSD: 162 T: 66 QT: 509 QTc: 525 Interpretive Statements SINUS RHYTHM WITH FREQUENT VENTRICULAR PREMATURE COMPLEXES LEFT BUNDLE BRANCH BLOCK [120+ ms QRS DURATION, 80+ ms Q/S IN V1/V2, 85+ ms R IN I/aVL/V5/V6] Compared to ECG 06/22/2018 17:51:17 Ventricular premature complex(es) now present Left-axis deviation no longer present Electronically Signed On 11-09-2024 21:32:08 PARKING LOT SIGNALER by Carlos Manuel Ocasio M.D. [id number]
[2024-11-09 07:22] LABS: D Dimer 2.78 ug/mLFEU (0-0.59)
[2024-11-09] MEDS: pantoprazole 40 mg SDV IVP ×2 (09:31→17:16)
[2024-11-09 10:07] LABS: Bilirubin Urine Negative (Negative); Blood Urine Negative (Negative); Glucose Urine UA Negative (Normal); Ketones Urine Negative (Negative); Leukocyte Esterase Urine Negative (Negative); Nitrate Urine Negative (Negative); Protein Urine Negative (Negative); Specific Gravity, Urine 1.014 (1.005-1.030); Urine Appearance Clear (CLEAR); Urine Color Yellow (Yellow); Urobilinogen Urine 0.2 mg/dL (Negative); pH Urine 6.5 (5-7)
[2024-11-09 10:10] LABS: Add Urine Microscopic? YES; Bacteria Urine None Seen /hpf; Hyaline Casts Urine 1.65 /lpf; RBC Urine 0-2 /hpf (0-2); Squamous Epithelial Cell Urine 0-5 /hpf (0-5); WBC Urine 0-5 /hpf (0-5)
--- NOTE | 2024-11-09 10:57 | P.CONIM_ITS ---
Providers/Reason For Consult 2 Consulting Physician/Specialty*: Alessandro Santiago MD/ Cardiology Reason for Consult*: Peripheral artery disease evaluation Requesting Physician: Dr Cruz Attending Physician: Dr Cruz Primary Care Provider: Vi Chaparro History of Present Illness History of Present Illness Israel Hardin is a 84 year old male with past medical history of dementia. Patient presented with right femoral fracture after a fall. Interventional cardiology was consulted for evaluation of PAD as CT scan was showing possible obstruction at the right lower extremity. Patient is a poor historian however denies any chest pain. States he was not having any discomfort prior to coming to hospital. His EKG shows PVCs. He is on sotalol however we do not have any prior cardiology visits here. Review of Systems 2 Const: Denies: fever(s) Eyes: Denies: change in vision ENMT: Denies: throat pain Card: Denies: chest pain Resp: Reports: dyspnea GI: Denies: abdominal pain : Denies: flank pain Musc: Reports: back pain, joint pain and limited range of motion Skin/Breast: Reports: rash Neuro: Denies: headache(s) Psych: Reports: anxiety Medications/Allergies Home Medications Medication Instructions Recorded Confirmed Last Taken Type sotalol 80 mg tablet 80 mg PO BID 07/08/21 11/09/24 11/08/24 History L.acidophil-L.casei-B.bifid-B.longum-FOS 1 cap PO DAILY 11/09/24 11/09/24 11/08/24 History 2 billion cell-50 mg capsule (Probiotic Blend) aspirin 81 mg tablet,delayed 81 mg PO DAILY 11/09/24 11/09/24 11/08/24 History release (Khushboo Low Dose Aspirin) xicnaceg-mpji-zustx acid 400 1 tab PO DAILY 11/09/24 11/09/24 11/08/24 History mcg-lycopene 600 mcg-ginkgo 120 mg tablet (One Daily Men's 50 Plus Memory Support) Allergies Allergy/AdvReac Type Severity Reaction Status Date / Time No Known Allergies Allergy Verified 05/05/24 09:40 Current Medications Generic Name Dose Route Start Last Admin Trade Name Freq PRN Reason Stop Dose Admin Dextrose/Sodium Chloride 1,000 mls @ 75 mls/hr 11/09/24 06:15 11/09/24 06:18 Dextrose 5%-Sod Chloride 0.9% IV 75 mls/hr .[id number] EL Administration Pantoprazole Sodium 40 mg 11/09/24 09:00 11/09/24 09:31 Pantoprazole 40 Mg Sdv IVP 40 mg BID EL Administration PFSH Acute 2 PFSH: Medical History (Updated 11/09/24 @ 15:02 by Alessandro Santiago M.D) HTN (hypertension) Obsessive compulsive disorder Alzheimer disease Surgical History (Updated 11/09/24 @ 08:28 by Tank Cruz MD) Hx of CABG Social History Smoking and tobacco/nicotine status: never used tobacco/nicotine Alcohol intake: never Substance/Drug Use: never Vitals/I&O/Wt Last Vital Signs Pulse 66 11/09/24 09:38 Resp 18 11/09/24 09:38 BP 126/81 11/09/24 09:38 Pulse Ox 98 11/09/24 09:38 O2 Del Method Room Air 11/09/24 05:58 11/08/24 11/09/24 11/09/24 22:59 06:59 14:59 Intake Total 1800 / 1800 Balance 1800 / 1800 Weight last 48 hrs Weight 174 lb Physical Exam 2 Narrative: GENERAL: Patient is alert, awake NECK: No jugular vein distension. [] HEENT: No cyanosis. No icterus. No pallor. [] HEART: Regular S1 and S2. No murmur, rub or gallop. [] LUNGS: Clear to auscultate bilaterally. [] CENTRAL NERVOUS SYSTEM: Grossly nonfocal. [] EXTREMITIES: Pulses are difficult to palpate. Urinary Catheter Management: Cooper: Cath Placed During This Visit: yes Reason for Continuing Indwelling Catheter: Other Urinary Catheter Date of Insertion: 11/09/24 Urinary Catheter Time of Insertion: 05:58 Data 11/09/24 01:01 11/09/24 01:01 A&P Assessment and plan (1) Coronary artery disease: (2) Hip fracture, right: (3) HTN (hypertension): (4) Peripheral vascular disease: Plan Patient has presented with right hip fracture. Interventional cardiology was consulted as there was concern for acute limb. I was in his room when the had arterial Doppler performed. He has blood flow throughout the leg. No concern for acute limb. He has significant CAD history with prior CABG and cardiac arrest during and right after the CABG. Echo shows mildly reduced LV systolic function. EKG shows interventricular conduction delay with PVCs. No significant ST T wave changes. He has some dementia. Denies chest pain. Has dyspnea that he says is chronic. No evidence of decompensated heart failure. Not physically very active [place] says with cane ambulates everyday without symptoms. Family did not poultry picker phone. Will recommend proceeding with checking troponins. If troponins not trending up and as surgery is needed, can proceed with it with moderate cardiac risk. Thank you for involving us with care of this patient. Please call with questions. Consult Attestations 2 Medical Necessity Statement: Care expected to cross 2 midnights. Coding Level of Care Code Acute Code for Chg Fwd Diagnoses Coronary artery disease I25.10 Hip fracture, right S72.001A HTN (hypertension) I10 Peripheral vascular disease I73.9
--- NOTE | 2024-11-09 14:53 | XRR_ITS ---
PROCEDURE INFORMATION: Exam: XR Right Forearm Exam date and time: 11/09/2024 5:21 PM Age: 84 years old Clinical indication: Injury or trauma; Fall; Swelling (edema); Arm, lower; Right; Additional info: Fall, swollen right arm TECHNIQUE: Imaging protocol: Radiologic exam of the right forearm. Views: 2 views. COMPARISON: CR (UP EXM, ) 11/09/2024 5:21 PM FINDINGS: Bones/joints: Normal. Soft tissues: Normal. Vasculature: Scattered vascular calcifications. XR/XR forearm RT 2V [id number] IMPRESSION: 1. Negative for fracture or dislocation. 2. Scattered vascular calcifications.
--- NOTE | 2024-11-09 14:54 | XRR_ITS ---
PROCEDURE INFORMATION: Exam: XR Right Hand Exam date and time: 11/09/2024 5:21 PM Age: 84 years old Clinical indication: Injury or trauma; Fall; Swelling (edema); Hand; Right; Additional info: Fall, swollen right hand TECHNIQUE: Imaging protocol: Radiologic exam of the right hand. Views: 1 or 2 views. 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 Moderate to severe 1st carpometacarpal joint and STT joint osteoarthritis. Soft tissues: Normal. Vasculature: Scattered vascular calcifications. XR/XR hand RT 2V [id number] IMPRESSION: 1. 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 2. Moderate to severe 1st carpometacarpal joint and STT joint osteoarthritis. 3. Scattered vascular calcifications.
[2024-11-09 15:41] LABS: Troponin(5th) Baseline 33 ng/L (0-15)
--- NOTE | 2024-11-09 16:09 | ECG_ITS ---
[facility] Date: 2024-11-09 Pat Name: Israel Hardin Department: Room: 258 Gender: Male [place]: : 1940 Requested By: Tank Cruz Order Number: [id number] Reading MD: Carlos Manuel Ocasio M.D. 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 [id number]
--- NOTE | 2024-11-09 16:13 | P.CONIM_ITS ---
Providers/Reason For Consult 2 Consulting Physician/Specialty*: Tiara Walton MD Reason for Consult*: Right subtrochanteric spiral femur fracture Requesting Physician: Dr. Garfield Pineda Attending Physician: Kandy Joy MD Primary Care Provider: Vi Chaparro History of Present Illness History of Present Illness Israel Hardin is a 84 year old male who presented to the emergency department after a fall at home. He lives alone with a history of dementia, but upon talking with him, he is quite functional. Normally, he is a community ambulator and uses a cane. When he presented to the emergency room he had diminished pulses in his lower extremities as well as a long spiral femoral shaft and subtrochanteric femur fracture. He was seen and evaluated by the hospitalist team as well as the cardiothoracic interventionalists. Although he has a cardiac history, he has been complaining of no chest pain recently. After evaluation, he was felt to be potentially optimized for surgery at this time. Troponins will be checked tonight to make sure that these are not elevated. We will proceed possibly in the early a.m. with surgical intervention. Review of Systems 2 Const: Denies: fever(s) Eyes: Denies: change in vision or photophobia ENMT: Denies: throat pain or enlarged tonsils Card: Denies: chest pain Resp: Reports: dyspnea GI: Denies: abdominal pain : Denies: flank pain Musc: Reports: back pain, joint pain and limited range of motion Skin/Breast: Reports: rash Neuro: Denies: headache(s) Psych: Reports: anxiety Medications/Allergies Home Medications Medication Instructions Recorded Confirmed Last Taken Type sotalol 80 mg tablet 80 mg PO BID 07/08/21 11/09/24 11/08/24 History L.acidophil-L.casei-B.bifid-B.longum-FOS 1 cap PO DAILY 11/09/24 11/09/24 11/08/24 History 2 billion cell-50 mg capsule (Probiotic Blend) aspirin 81 mg tablet,delayed 81 mg PO DAILY 11/09/24 11/09/24 11/08/24 History release (Khushboo Low Dose Aspirin) ltuaoafn-mxrt-bqfol acid 400 1 tab PO DAILY 11/09/24 11/09/24 11/08/24 History mcg-lycopene 600 mcg-ginkgo 120 mg tablet (One Daily Men's 50 Plus Memory Support) Allergies Allergy/AdvReac Type Severity Reaction Status Date / Time No Known Allergies Allergy Verified 05/05/24 09:40 Current Medications Generic Name Dose Route Start Last Admin Trade Name Kp PRN Reason Stop Dose Admin Dextrose/Sodium Chloride 1,000 mls @ 75 mls/hr 11/09/24 06:15 11/09/24 06:18 Dextrose 5%-Sod Chloride 0.9% IV 75 mls/hr .[id number] EL Administration Pantoprazole Sodium 40 mg 11/09/24 09:00 11/09/24 09:31 Pantoprazole 40 Mg Sdv IVP 40 mg BID EL Administration PFSH Acute 2 PFSH: Medical History (Updated 11/09/24 @ 17:51 by Tiara Walton MD) HTN (hypertension) Obsessive compulsive disorder Alzheimer disease Surgical History (Updated 11/09/24 @ 08:28 by Tank Cruz MD) Hx of CABG Social History Smoking and tobacco/nicotine status: never used tobacco/nicotine Alcohol intake: never Substance/Drug Use: never Vitals/I&O/Wt Last Vital Signs Temp 98.1 F 11/09/24 15:39 Pulse 80 11/09/24 15:39 Resp 17 11/09/24 15:39 BP 109/68 11/09/24 15:39 Pulse Ox 98 11/09/24 15:39 O2 Del Method Room Air 11/09/24 15:39 11/09/24 11/09/24 11/09/24 06:59 14:59 22:59 Intake Total 1800 / 1800 1000 / 1000 Balance 1800 / 1800 1000 / 1000 Weight last 48 hrs Weight 174 lb Physical Exam 2 Const: COMMON NORMALS: no acute distress, average body habitus, patient oriented x3 and alert GENERAL APPEARANCE: cooperative and comfortable O RIENTATION/CONSCIOUSNESS: Yes awake HENMT: COMMON NORMALS: normocephalic and atraumatic HEAD & SCALP: n ormocephalic and atraumatic Eye: GENERAL EYE: appearance normal, both eyes and all related structures Chest: COMMONS NORMALS: normal inspection of the chest Resp: COMMON NORMALS: normal respiratory effort EFFORT & INSPECTION: Yes able to speak in complete sentences and Yes symmetric chest movement Extremity: RIGHT LOWER EXTREMITY: Yes upper leg (Shortened and externally rotated. There is swelling in the calf.) Right upper leg: Yes neurovascular exam (Intact with decreased pulses) Neuro: COMMON NORMALS: patient oriented x3 SENSORIUM/ORIENTATION: Yes alert Psych: COMMON NORMALS: mental status grossly normal APPEARANCE: Yes grossly normal ATTITUDE: Yes calm and Yes engaged ATTENTION/CONCENTRATION: Yes attention grossly intact Skin: COMMON NORMALS: no rashes or lesions noted GENERAL SKIN EXAM: no rashes or lesions noted Urinary Catheter Management: Cooper: Cath Placed During This Visit: yes Reason for Continuing Indwelling Catheter: Other Urinary Catheter Date of Insertion: 11/09/24 Urinary Catheter Time of Insertion: 05:58 Data 11/09/24 01:01 11/09/24 01:01 Other Imaging: My impression: I have reviewed plain films plus the CT scan. There is a comminuted fracture that is spiral from the lesser trochanteric area into the mid femoral shaft. A&P Assessment and plan (1) Fracture, subtrochanteric, right femur, closed: This 84-year-old gentleman was in his usual state of health where he lives alone at home. He fell and was unable to ambulate. Patient came to the emergency department where he was found to have a proximal femur fracture involving the subtrochanteric area spiraling into the femoral shaft. Upon initial workup, he had cold extremities to palpation. CTA demonstrated severe atherosclerotic disease with no contrast running below the popliteal artery. For this reason, cardiovascular interventionalists was consulted. He was evaluated and examined and felt to be chronically this compromised rather than an acute situation. Patient also has a cardiac history. He has not had recent chest pain or pain in his feet. After discussion with the patient and [facility] treating physicians, plans were made for the patient to have open reduction internal fixation of this fracture in the morning. This will depend upon results of his troponins drawn this evening as well. Qualifiers: Encounter type: initial encounter Fracture alignment: displaced Qualified Code(s): S72.21XA - Displaced subtrochanteric fracture of right femur, initial encounter for closed fracture (2) Displaced spiral fracture of shaft of left femur: Qualifiers: Encounter type: initial encounter Fracture type: closed Qualified Code(s): S72.342A - Displaced spiral fracture of shaft of left femur, initial encounter for closed fracture Coding Level of Care Code Acute Code for Chg Fwd Diagnoses Closed displaced subtrochanteric fracture of right femur, initial encounter S72.21XA Encounter type: initial encounter Fracture alignment: displaced Closed displaced spiral fracture of shaft of left femur, initial encounter S72.342A Encounter type: initial encounter Fracture type: closed
--- NOTE | 2024-11-09 17:36 | ECG_ITS ---
[facility] Test Date: 2024-11-09 Pat Name: Israel Hardin Department: Room: 258 Gender: Male Outpatient Interviewing Clerk: : 1940 Requested By: Tank Cruz Order Number: [id number] Geraldine MD: Carlos Manuel Ocasio M.D. 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 [id number]
--- NOTE | 2024-11-09 18:50 | PC.NURSE ---
Patient's grandson Rosas stopped by this evening. This nurse explained that as long as patient's troponins do not trend up, surgery will be tomorrow at 0830. This nurse explained the surgery Dr. Walton had planned. Rosas was agreeable to patient going to the OR.
[2024-11-09 18:57] LABS: Troponin 5 2HR 37.81 ng/L (0-15); Troponin 5 2HR Delta 4.81 ABS# (0-10)
[2024-11-09] MEDS: morphine 4 mg/mL SDV 1 mL 2 MG IVP (20:14)
--- NOTE | 2024-11-09 21:12 | PM.PN ---
Subjective Subjective: When seen on 11/09, still in the ER, awaiting further orthopedic assessment, has been assessed by cardiology. Denies chest pain or pressure. Understands elevated risk of going through surgery, however, does want to regain ability to walk and function as he states has been active at home. He tells me he had had cardiac arrest after CABG. Contacting his primary provider's office, this was found to have been done in 2017 in [facility]. Medical records have been requested. Vitals/I&O/Wt Last Vital Signs Temp 98.2 F 11/10/24 18:52 Pulse 101 H 11/10/24 18:52 Resp 18 11/10/24 18:52 BP 124/82 11/10/24 18:52 Pulse Ox 97 11/10/24 18:52 O2 Del Method Room Air 11/10/24 18:52 11/10/24 11/10/24 11/10/24 06:59 14:59 22:59 Intake Total 450 / 450 598 / 1048 Output Total 450 / 450 Balance -450 / 560 450 / 450 598 / 1048 Weight last 48 hrs Weight 78.925 kg Physical Exam Const: COMMON NORMALS: patient oriented x3 and alert GENERAL APPEARANCE: cooperative ORIENTATION/CONSCIOUSNESS: Yes awake HENMT: COMMON NORMALS: oropharynx normal Neck/C-Spine: COMMON NORMALS: no JVD Resp: COMMON NORMALS: normal respiratory effort and clear to auscultation bilaterally AUSCULTATION: clear to auscultation bilaterally Cardio: COMMON NORMALS: no JVD, regular rhythm, S1 normal heart sound present, S2 normal heart sound present and No murmurs present (Cardio) RHYTHM: regular rhythm HEART SOUNDS: S1 normal heart sound present and S2 normal heart sound present GI: COMMON NORMALS: Normal to inspection, nondistended, normoactive bowel sounds present, Soft to palpation and non-tender PALPATION: Yes Soft to palpation Extremity: COMMON NORMALS: no joint enlargement and no pedal edema GENERAL: Yes edema (Trace lower extremity) OTHER: Right lower extremity and antalgic positioning. Without significant swelling. Appears perfused. Neuro: COMMON NORMALS: patient oriented x3 and moves all extremities SENSORIUM/ORIENTATION: Yes alert Skin: COMMON NORMALS: no rashes or lesions noted GENERAL SKIN EXAM: no rashes or lesions noted Urinary Catheter Management: Cooper: Cath Placed During This Visit: yes Reason for Continuing Indwelling Catheter: Other Urinary Catheter Date of Insertion: 11/09/24 Urinary Catheter Time of Insertion: 05:58 Data 11/10/24 17:30 11/10/24 02:33 A&P Assessment and plan (1) Bladder outlet obstruction: (2) Dehydration: (3) IGGY (acute kidney injury): (4) Hip fracture, right: Plan Spiral fracture right femur with extension into the lesser trochanter: With poorly perfused lower extremities, concern for bilateral chronic lower extremity ischemia. Cardiology assessment is requested. CT angiogram reviewed. Arterial duplex lower extremities is obtained, reviewed. Additionally echocardiogram has been requested, and ejection fraction is found to be mildly diminished 45-50%, grade 1 diastolic dysfunction. Appreciate cardiology evaluation, further risk stratification considerations. Reassess blood counts. At risk of bleeding. VTE prophylaxis with SCD. Reviewed CBC. Repeat blood counts. Surgical intervention deferred, hold IV fluids. Continue IV morphine for pain. CAD, status post CABG. History of cardiac arrest: He tells me he had had cardiac arrest after CABG. Contacting his primary provider's office, this was found to have been done in 2017 in [facility]. Medical records have been requested. Discussed with buildings and grounds supervisor. TTE reviewed, mildly decreased ejection fraction, 45-50%. Stop IV fluids. Attempted to contact his grandson, but no answer. IGGY: Reviewed BUN, creatinine, anion gap, bicarb. Potassium. Would avoid NSAIDs. 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 He is able to provide history, answering questions. Appears possibly mild dementia. He is able to tell me that in case he gets confused his grandson should be approached ,medical DPOA CT head unremarkable Lower extremity weak pulses: Reviewed CT angiogram, arterial duplex. Discussed with interventional cardiology. Appreciate consultation. Patient is stating that in case his heart stops this time he does not want to be resuscitated However considering history of dementia this should be readdressed, grandson not at the bedside Attestations Medical Necessity Statement*: Continue admission for assessment of management of complex right femoral fracture, preoperative assessment in a gentleman with peripheral artery disease, history of CAD, CABG, cardiac arrest. and High MDM includes amount and/or complexity of data reviewed/ordered [ resulted lab(s)/test(s), ordered lab(s)/test(s) and other healthcare professional discussion] and described risk of complication, morbidity or mortality of management as documented Diagnoses Bladder outlet obstruction N32.0 Dehydration E86.0 IGGY (acute kidney injury) N17.9 Hip fracture, right S72.001A
[2024-11-09] MEDS: water for injection-sterile 10 ML 2.1 ML (21:13)
[2024-11-09] MEDS: OLANZapine 10 mg VIAL IM (21:13)
[2024-11-09 21:57] LABS: Troponin 5 6HR 65.65 ng/L (0-15)
[2024-11-09 22:15] LABS: Troponin 5 6HR Delta 32.65 ng/L (0-12)
[2024-11-10] VITALS (24 sets, daily range): BP systolic 72–143; BP diastolic 45–82; PULSE 62–102; RESP 14–20; TEMP 36.3–37.3; O2SAT 94–100
--- NOTE | 2024-11-10 | XR_ITS ---
WS: [id number] C-ARM RADIOGRAPHS RIGHT FEMUR; 4 IMAGES HISTORY: DEBBIE PICS COMPARISON: 11/09/2024 Intraoperative imaging during ORIF RIGHT femur fracture. Gamma nail with long intramedullary aileen. Cer clage wires surround the proximal femur. Fracture in good position and alignment. XR/XR femur RT min 2V* [id number] IMPRESSION: Status post ORIF RIGHT femur fracture in good position and alignment.
[2024-11-10] MEDS: morphine 4 mg/mL SDV 1 mL 2 MG IVP ×2 (00:05→04:03)
[2024-11-10 03:56] LABS: Basophils % 0.1 %; Hematocrit 21.8 % (37-53); Lymphocytes # 2.1 10^3/uL (0.8-4.8); Lymphocytes % 21.8 %; Mean Corpuscular HGB Conc 33.5 g/dL (30-55); Mean Corpuscular Hemoglobin 36.7 pg (27-33); Mean Corpuscular Volume 109.5 fl (82-101); Mean Platelet Volume 12.2 fL (7.4-10.4); Monocytes # 1.1 10^3/uL (0.2-0.9); Monocytes % 11.2 %; Neutrophils # 6.32 10^3/uL (1.8-7.7); Neutrophils % 66.6 %; Nucleated Red Blood Cells % 0 %; Platelet Count 93 10^3/cmm (157-399); Red Blood Count 1.99 10^6/uL (3.85-5.65); Red Cell Distribution Width 12.9 % (12.1-15.1); White Blood Count 9.49 10^3/uL (3.29-11.43)
[2024-11-10 04:11] LABS: Anion Gap 10.7 (5-19); Blood Urea Nitrogen 21 mg/dL (8-23); Calcium 8.3 mg/dL (8.5-10.5); Carbon Dioxide 28 mmol/L (22-29); Chloride 105 mmol/L (98-107); Creatinine Clr Calc Pharmacy 36.6382; Glucose 123 mg/dL (65-115); Magnesium 1.8 mg/dL (1.7-2.3); Osmolality Calculated 292 mOsm/kg (285-295); Potassium 4.7 mmol/L (3.5-5.1); Sodium 139 mmol/L (136-145)
[2024-11-10] MEDS: acetaminophen 1,000 MG/100 ML PIGGYBACK 400 MG IV (07:41)
--- NOTE | 2024-11-10 09:06 | PM.MISC ---
Miscellaneous Note Purpose of Documentation: Surgery Postponement Note: Patient was brought to the preop area. Yesterday, we had evaluated his troponins which did have an elevation at the 6-hour, however, this was felt partially to be due to his renal failure. He was entirely asymptomatic, and after discussion with the hospitalist last evening as well as Dr. Santiago this morning, we elected to proceed with his surgical intervention. Unfortunately, an H&H drawn at approximately 230 this morning showed a drop from 10+ to 7.3. Given the patient's cardiac history and concern for stress to the heart, the surgery was postponed so that the patient could receive 2 units of packed red blood cells and return to the operating room this evening. Concern for continued bleeding giving the type of fracture which involves the proximal half of the femur precludes us from planning surgery tomorrow as after receiving the 2 units of packed red blood cells it would be likely we would see another decrease in H&H overnight. This was discussed with the surgical team including anesthesia as well as with the hospitalist. We will return for surgery this evening at 7:30 PM.
--- NOTE | 2024-11-10 09:45 | PC.CHAP ---
Pastoral Care Encounter/Spiritual Assessment Type of Contact [] Declined matrix inspector visit [] Patient/Family/Request visit [] Outpatient visit [] Follow-up visit [] Physician referral [] Code/Alert [] Routine visit [] Staff referral [] Actively dying [] Patient sleeping [] Family support [] [x] Out of room [] Palliative care [] [] Receiving care in room [] Pre-surgical visit [] Trauma [] Long length of stay [] ICU visit [] Other: Relational/Emotional Strength [] Patient feels connected with others/family/visitors/staff [] Distress [] Loneliness/isolation [] Abandonment Spirituality of Patient [] Person of Diana [] Attends Quaker of their Diana [] Believes in Prayer [] Reads Bible or Spiritism materials [] There are Spiritual issues to be addressed Greenhouse Assistant Interventions [] Prayer [] Active listening [] Non-anxious presence [] Spiritual/emotional support [] Crisis/trauma care [] Spiritual counseling [] Bereavement support [] Provided bereavement packet [] Provided Bible/devotional materials [] Provided toy/stuffed animal, coloring book to patient or family member [] Provided Communion [] Anointing/Logan [] Salvation [] Completed spiritual assessment [] Other: Impact on Illness or Injury [] Angry [] Fearful [] Anxious [] Often cries [] Exhaustion [] Unable to work [] Unable to attend alevism [] Unable to walk/stand [] Unable to read [] Unable to drive [] Unable to eat/drink [] Unable to sleep [] Unable to be with family [] Patient intubated [] Other: Summary Time spent with patient
[2024-11-10] MEDS: FUROsemide 10 mg/mL SDV 2mL 20 MG IVP (13:15)
[2024-11-10 17:40] LABS: Hematocrit 30.8 % (37-53)
[2024-11-10] MEDS: gabapentin 300 mg Capsule PO (18:50)
[2024-11-10] MEDS: CELEcoxib 200 mg Capsule 400 MG PO (18:51)
[2024-11-10] MEDS: sodium chloride 0.9% 1,000 ML 30 ML IV (18:54)
[2024-11-10 19:15] LABS: Platelet Count 79 10^3/cmm (157-399)
[2024-11-10] MEDS: ceFAZolin 2,000 mg SDV 2000 MG IVP (19:43)
--- NOTE | 2024-11-10 21:21 | SUR.OPER ---
2039 Cooper catheter fell out of patient during procedure. Cooper was to gravity, had no tension. Approximately only 1ml of saline was noted to be in the balloon. A new catheter will be placed at the end of the procedure. HD
--- NOTE | 2024-11-10 21:27 | PM.PN ---
Subjective Subjective: When seen on 11/10, receiving blood transfusion, denies chest pain, pressure or trouble breathing. He is trying not to move too much was not to trigger pain in his right leg. Vitals/I&O/Wt Last Vital Signs Temp 98.2 F 11/10/24 18:52 Pulse 101 H 11/10/24 18:52 Resp 18 11/10/24 18:52 BP 124/82 11/10/24 18:52 Pulse Ox 97 11/10/24 18:52 O2 Del Method Room Air 11/10/24 18:52 11/10/24 11/10/24 11/10/24 06:59 14:59 22:59 Intake Total 450 / 450 598 / 1048 Output Total 450 / 450 Balance -450 / 560 450 / 450 598 / 1048 Weight last 48 hrs Weight 78.925 kg Physical Exam Const: COMMON NORMALS: patient oriented x3 and alert GENERAL APPEARANCE: cooperative ORIENTATION/CONSCIOUSNESS: Yes awake HENMT: COMMON NORMALS: oropharynx normal Neck/C-Spine: COMMON NORMALS: no JVD Resp: COMMON NORMALS: normal respiratory effort and clear to auscultation bilaterally AUSCULTATION: clear to auscultation bilaterally Cardio: COMMON NORMALS: no JVD, regular rhythm, S1 normal heart sound present, S2 normal heart sound present and No murmurs present (Cardio) RHYTHM: regular rhythm HEART SOUNDS: S1 normal heart sound present and S2 normal heart sound present GI: COMMON NORMALS: Normal to inspection, nondistended, normoactive bowel sounds present, Soft to palpation and non-tender PALPATION: Yes Soft to palpation Extremity: COMMON NORMALS: no joint enlargement and no pedal edema GENERAL: Yes edema (Trace lower extremity) OTHER: Right lower extremity and antalgic positioning. Without significant swelling. Appears perfused. Neuro: COMMON NORMALS: patient oriented x3 and moves all extremities SENSORIUM/ORIENTATION: Yes alert Skin: COMMON NORMALS: no rashes or lesions noted GENERAL SKIN EXAM: no rashes or lesions noted OTHER: Lower extremities cool to touch. Mild cyanotic discoloration. No open ulcer. Urinary Catheter Management: Cooper: Cath Placed During This Visit: yes Reason for Continuing Indwelling Catheter: Other Urinary Catheter Date of Insertion: 11/09/24 Urinary Catheter Time of Insertion: 05:58 Data 11/10/24 17:30 11/10/24 02:33 A&P Assessment and plan (1) Bladder outlet obstruction: (2) Dehydration: (3) IGGY (acute kidney injury): (4) Hip fracture, right: Plan Spiral fracture right femur with extension into the lesser trochanter: Elevated risk of surgery and anesthesia. Options for risk stratification were considered including stress test. But this would further delay care with a complex fracture, likely further blood loss and more difficult recovery which is a reasonable assessment. Upon consideration of options on discussion of cardiology with orthopedic surgery surgery will cautiously proceed forward today. Discussed with orthopedics. This morning additionally with acute anemia, hemoglobin down to 7.3. 2 units RBC transfusion have been requested with follow-up hemoglobin. Are decreased to 79,000. Possibly dilutional component of decrease of both with IV fluids, does appear to have some possibly chronic thrombocytopenia with platelets on admission at 116,000. Requested 4 units of platelets to be obtained. Reassess blood counts. Not on anticoagulation. SCDs only for DVT prophylaxis. With poorly perfused lower extremities, concern for bilateral chronic lower extremity ischemia. Cardiology assessment is requested. CT angiogram reviewed. Arterial duplex lower extremities is obtained, reviewed. Additionally echocardiogram has been requested, and ejection fraction is found to be mildly diminished 45-50%, grade 1 diastolic dysfunction. Appreciate cardiology evaluation, further risk stratification considerations. Surgical intervention deferred, hold IV fluids. Continue IV morphine for pain. Anemia, thrombocytopenia: Reviewed TSH, B12 level normal. 2 units RBC were requested and placed on hold yesterday. Being transfused today as hemoglobin decreased to 7.3 with anticipated further blood loss. Requested 4 units platelets for him. Will check reticulocyte count, peripheral smear. On review of medications I do see any medications that should be triggering his thrombocytopenia. Suspect may be some delusional effect from chronic thrombocytopenia and IV hydration. Recheck blood counts. Check LDH, haptoglobin. CAD, status post CABG. History of cardiac arrest: He tells me he had had cardiac arrest after CABG. Contacting his primary provider's office, this was found to have been done in 2017 in [facility]. Medical records have been requested. Discussed with information assurance officer. TTE reviewed, mildly decreased ejection fraction, 45-50%. Stop IV fluids. Attempted to contact his grandson, but no answer. IGGY: Reviewed BUN, creatinine, potassium, anion gap, bicarb, intake and output. Magnesium. Creatinine with some worsening today up to 1.6. Would avoid NSAIDs. Received fluid challenge. Cooper catheter in place, monitoring intake output. Will obtain kidney ultrasound. Reviewed BUN, creatinine, anion gap, bicarb. Potassium. Would avoid NSAIDs. Alzheimer's dementia: He is awake and alert. He is able to provide history, answering questions. Appears possibly mild dementia. He is able to tell me that in case he gets confused his grandson should be approached ,medical DPOA CT head unremarkable Lower extremity weak pulses: With severe peripheral artery disease. Does have residual flow. Elevated risk, but per discussion with cardiology she would allow for the currently needed surgery. Reviewed CT angiogram, arterial duplex. Discussed with interventional cardiology. Appreciate consultation. Hypomagnesemia: Requested magnesium replacement. Recheck level. 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 In case of additional cardiac arrest he had previously decided he would not want further resuscitation due to high likelihood of additional brain injury. Attestations Medical Necessity Statement*: Continue admission for assessment of management of complex right femoral fracture, preoperative assessment in a gentleman with peripheral artery disease, history of CAD, CABG, cardiac arrest. and High MDM includes amount and/or complexity of data reviewed/ordered [ resulted lab(s)/test(s), ordered lab(s)/test(s) and other healthcare professional discussion] and described risk of complication, morbidity or mortality of management as documented Diagnoses Bladder outlet obstruction N32.0 Dehydration E86.0 IGGY (acute kidney injury) N17.9 Hip fracture, right S72.001A
[2024-11-10 22:05] LABS: LAB Peripheral Smear Sent for Review
[2024-11-10 22:09] LABS: Hematocrit 31.4 % (37-53); Retic Production Index 1.81; Reticulocyte % 2.3 % (0.5-2.0)
[2024-11-10] MEDS: lidocaine-epi 1% 20 mL INJ INJECTION (22:58)
[2024-11-10] MEDS: BUPivacaine 0.5% INJ 30 mL INJECTION (23:00)
--- NOTE | 2024-11-10 23:26 | P.OP_ITS ---
Operative Report Date of procedure: November 10, 2024 Pre-op diagnosis: Right subtrochanteric femur fracture with extension into the proximal femoral shaft with long spiral femoral shaft fracture Post-op diagnosis: Right subtrochanteric femur fracture with extension into the proximal femoral shaft with long spiral femoral shaft fracture Post-op findings: Attempt was made to reduce the fracture with manipulation on the [place] table, but the fracture was noted to be irreducible. Therefore decision was made to open the fracture site. There was substantial clot in the area of the fracture along with bleeding from the intramedullary bone. With manipulation after removing muscle tissue from between the fracture fragments, we were able to reduce the fracture essentially anatomically. Procedure done: Open reduction internal fixation right femur fracture with cerclage wire x 3 requiring removal of large clots and muscle from between the fracture fragments. Open reduction internal fixation right subtrochanteric fracture with intramedullary gamma nail Implants: Cerclage wires were [employer] beaded cable and sleeve set, 2 mm, x 3 for open reduction internal fixation of the femoral shaft fracture, the [employer], an [employer] gamma 3 nail system for the subtrochanteric fracture with a gamma 3 long right trochanteric nail size 13 mm x 420 mm x 125 degrees with a proximal lag screw size 10.5 mm x 110 mm Specimens removed/disposition: None Pathology: None Surgeon: Tiara Walton MD Fire Control Assistant: Janet Infante, nurse practitioner, whose services were required for positioning, retraction during this complex surgical procedure, fracture reduction, and closure Anesthesia: General (Intubated, ASA 4) Estimated blood loss (mL): 1,250 IV fluids (mL): 3,450 IV fluids: 2000 mL of crystalloid, 1250 mL of albumin, and 200 mL of platelets Urine output (mL): 900 Complications: None Findings: Irreducible femoral shaft fracture requiring evacuation of hematoma, manipulation of the interposed muscle, and manual reduction of the fracture site Condition: stable Disposition: PACU (Then return to floor for postoperative rehabilitation and pain management) Brief History: Israel Hardin is a 84 year old male who presented to the emergency department after a fall at home. He lives alone with a history of dementia, but upon talking with him, he is quite functional. Normally, he is a community ambulator and uses a cane. When he presented to the emergency room he had diminished pulses in his lower extremities as well as a long spiral femoral shaft and sub trochanteric femur fracture. He was seen and evaluated by the hospitalist team as well as the cardiothoracic interventionalists. Although he has a cardiac history, he has been complaining of no chest pain recently. After evaluation, he was felt to be potentially optimized for surgery at this time. After admission, further workup was accomplished with the assistance of the hospitalist and cardiology team. The patient came to the operating room the morning of surgery, however, his H&H had dropped overnight significantly. Therefore, he had to receive transfusion and return to the OR in the evening. Procedure: Patient is brought to the operating theater. After undergoing adequate general anesthesia with intubation, ASA 4, the patient was transferred to the fracture table, positioned on the table and fluoroscopic guidance obtained throughout the surgical procedure. We utilized the [place] table, but we were unable to fully reduce the fracture closed. Decision was made at that time to proceed with open reduction internal fixation of the femoral shaft fracture with cerclage wires and of the subtrochanteric part which also included the lesser trochanter utilizing a [place] gamma nail. The fracture was marked using fluoroscopy prior to prepping and draping. Prior to the commencement of the surgical procedure, a surgical pause was performed. At the time of the surgical pause, we confirmed the site and side of surgery as well as preoperative surgical markings and appropriate and timely administration of IV antibiotics, Ancef 2 g. Availability of equipment was also confirmed. This included cerclage wires as well as the long gamma trochanteric nail and appropriate reduction clamps for the open reduction internal fixation. Fluoroscopy was used to confirm the fracture was appropriately reduced in both AP and lateral planes. Cerclage wires were utilized to repair the long spiral femoral shaft fracture. 3 of these were maricruz tsering uneventfully. Attention was initially addressed to the femoral shaft fracture. Attempt at manipulation had been accomplished with the use of traction and rotation, but the fracture fragments were so widely and impacted into the muscle, it was felt that we could not reduce this fracture without opening it. The extents of the fracture were marked, and an incision was made over the patient's lateral femur. Dissection continued through skin and soft tissues using a scalpel hemostasis was obtained using electrocautery. The bone was isolated with some difficulty. We were then able to place turkey claw clamps at the fracture site once it was reduced. With manual reduction and manipulation utilizing rotation both external and internal, the fracture was able to be reduced anatomically. These clamps were left in place until the cerclage wires were able to secure the fracture. 3 of these were placed uneventfully. An incision was then made slightly above the greater trochanter to allow access to the greater trochanter. An awl was used to enter the greater trochanter and a guidewire was subsequently placed. Once the guidewire was confirmed to be in appropriate position in AP and lateral planes, reaming was accomplished over this to allow for the proximal diameter of the nail. Guidewire was then removed and a long guidewire was placed through the proximal femur, across the fracture site, and down to the knee. This wire was passed without difficulty. This was visualized fluoroscopically during this process. After the guidewire was noted to be in appropriate position, reaming was begun. We reamed with flexible reamers. Chatter was accomplished at 14 mm reamer. We reamed to a size 15 to allow for passage of the size 13 nail. Also, the nail measured nearly 440 mm, but a 420 mm nail was chosen. This reaming was accomplished without difficulty. Reamer was monitored as it passed through the fracture site. The wire lengths was measured prior to reaming, and the appropriate length nail was 420 mm. Therefore, after reaming, the chosen nail was a 13 mm x 420 mm x 125 degree gamma 3 long left trochanteric nail. This nail was placed into appropriate po sition with positioning being confirmed in AP and lateral planes on the x-ray. It passed with some difficulty. Guidewire was then passed through the jigging system into the femoral head. We wanted to be center or slightly inferior and posterior to center. With the nail in place, the fracture was noted to be stable following intramedullary aileen placement. Once the guidewire was in appropriate position and this position was confirmed by x-ray. This was then measured and we chose a 10.5 mm x 110 mm lag screw. We reamed to allow for the lag screw to be placed. The 110 mm lag screw was then passed into the femoral head through the trochanteric nail. This was passed uneventfully and again position was confirmed in AP and lateral planes. The set screw was then placed in position, and tightened completely then loosened approximately 1 days turn. Once the screw was in position, we confirmed appropriate placement of the components, and we removed the jigging system. Attention was then directed to closure. The hip was copiously irrigated with normal saline with antibiotics. Following this it was dried and closed. Tensor fascia natividad was closed with 0 Vicryl in an interrupted fashion. Subcutaneous tissues were closed with 2-0 Monocryl, and the skin was closed with skin nathaniel. This was then covered with Silverlon dressing. The patient was removed from the fracture table and transferred to the hospital bed. He was transferred to the PACU for further treatment and evaluation with anesthesia. Related Problem List Diagnoses (1) Displaced spiral fracture of shaft of left femur: (2) Fracture, subtrochanteric, right femur, closed:
[2024-11-10 23:52] LABS: Lactate Dehydrogenase 159 U/L (135-225)
[2024-11-11] VITALS (76 sets, daily range): BP systolic 66–127; BP diastolic 37–76; PULSE 69–124; RESP 0–32; TEMP 35.7–37.1; O2SAT 78–100; BMI 24.0
[2024-11-11 00:13] LABS: Hematocrit 18.7 % (37-53)
[2024-11-11] MEDS: sodium chloride 0.9% 100 mL Bag 50 ML IV ×2 (00:45→22:00)
--- NOTE | 2024-11-11 00:45 | PC.NURSE ---
Blood Transfusion Start Prior to patient being present on unit, OR nurse brought 1 unit of irradiated leukocyte reduced RBCs. When initiating blood transfusion, time limit of blood being issued prior to initiation surpassed 20 minutes at 22 minutes. [facility] to administer blood product. Blood product still cool, no discoloration or leaking. Blood transfusion administered.
[2024-11-11] MEDS: norepinephrine 4 MG/250 ML BAG 30 MG IV (01:07)
[2024-11-11 04:00] LABS: Basophils % 0.1 %; Hematocrit 26.2 % (37-53); Lymphocytes # 0.9 10^3/uL (0.8-4.8); Lymphocytes % 7.7 %; Mean Corpuscular HGB Conc 32.1 g/dL (30-55); Mean Corpuscular Hemoglobin 32.4 pg (27-33); Mean Corpuscular Volume 101.2 fl (82-101); Mean Platelet Volume 11.9 fL (7.4-10.4); Monocytes # 1.1 10^3/uL (0.2-0.9); Monocytes % 9.6 %; Neutrophils # 9.66 10^3/uL (1.8-7.7); Neutrophils % 82.3 %; Nucleated Red Blood Cells % 0.2 %; Platelet Count 137 10^3/cmm (157-399); Red Blood Count 2.59 10^6/uL (3.85-5.65); Red Cell Distribution Width 18.1 % (12.1-15.1); White Blood Count 11.74 10^3/uL (3.29-11.43)
[2024-11-11 04:13] LABS: Alanine Aminotransferase 24 U/L (0-41); Albumin Level 2.8 g/dL (3.5-5.2); Alkaline Phosphatase 98 U/L (40-130); Aspartate Amino Transferase 74 U/L (0-40); Blood Urea Nitrogen 27 mg/dL (8-23); Calcium 7.4 mg/dL (8.5-10.5); Carbon Dioxide 17 mmol/L (22-29); Chloride 99 mmol/L (98-107); Globulin 1.8 g/dL (1.3-4.6); Glucose 143 mg/dL (65-115); Osmolality Calculated 300 mOsm/kg (285-295); Sodium 141 mmol/L (136-145); Total Bilirubin 2.5 mg/dL (0.15-1.2); Total Protein 4.6 g/dL (6.6-8.7)
[2024-11-11 04:14] LABS: Anion Gap 30.2 (5-19); Potassium 5.2 mmol/L (3.5-5.1)
[2024-11-11 04:25] LABS: Magnesium 1.9 mg/dL (1.7-2.3)
[2024-11-11] MEDS: ceFAZolin 2,000 mg SDV 2000 MG IVP ×3 (04:45→19:53)
[2024-11-11] MEDS: oxyCODONE 5 mg IR Tab/Cap PO (09:12)
[2024-11-11] MEDS: pantoprazole 40 mg SDV IVP ×2 (09:13→17:35)
[2024-11-11] MEDS: norepinephrine 4 MG/250 ML BAG 26.25 MG IV ×2 (11:42→20:46)
--- NOTE | 2024-11-11 13:24 | P.PN_ITS ---
Subjective 2 Subjective: He is somnolent. Wakes up very briefly. Medications: Reviewed: Yes Vitals/I&O/Wt Last Vital Signs Temp 98.4 F 11/11/24 07:30 Pulse 71 11/11/24 12:00 Resp 10 L 11/11/24 12:00 BP 94/56 11/11/24 12:00 Pulse Ox 99 11/11/24 12:00 O2 Del Method Room Air 11/11/24 12:00 11/10/24 11/11/24 11/11/24 22:59 06:59 14:59 Intake Total 598 / 1048 1646.625 / 2694.625 436.375 / 436.375 Output Total 3050 / 3050 Balance 598 / 1048 -1403.375 / -355.375 436.375 / 436.375 Weight last 48 hrs Weight 76 kg Physical Exam 2 Const: GENERAL APPEARANCE: lethargic ORIENTATION/CONSCIOUSNESS: Yes lethargic HENMT: COMMON NORMALS: oropharynx normal Neck/C-Spine: COMMON NORMALS: no JVD Resp: COMMON NORMALS: normal respiratory effort and clear to auscultation bilaterally AUSCULTATION: clear to auscultation bilaterally Cardio: COMMON NORMALS: no JVD, regular rhythm, S1 normal heart sound present, S2 normal heart sound present and No murmurs present (Cardio) RHYTHM: regular rhythm HEART SOUNDS: S1 normal heart sound present and S2 normal heart sound present GI: COMMON NORMALS: Normal to inspection, nondistended, normoactive bowel sounds present, Soft to palpation and non-tender PALPATION: Yes Soft to palpation Extremity: COMMON NORMALS: no joint enlargement and no pedal edema GENERAL: Yes edema (Trace lower extremity) OTHER: Right thigh with swelling, minimal bruising. Right lower extremity and antalgic positioning. Minimal lower leg swelling. Appears perfused. Neuro: COMMON NORMALS: moves all extremities SENSORIUM/ORIENTATION: Yes lethargic Skin: COMMON NORMALS: no rashes or lesions noted GENERAL SKIN EXAM: no rashes or lesions noted OTHER: Lower extremities cool to touch. Mild cyanotic discoloration BL. No open ulcer. Urinary Catheter Management: Cooper: Cath Placed During This Visit: yes Reason for Continuing Indwelling Catheter: Other Urinary Catheter Date of Insertion: 11/09/24 Urinary Catheter Time of Insertion: 05:58 Data 11/11/24 13:47 11/11/24 03:43 A&P Assessment and plan (1) Bladder outlet obstruction: (2) Dehydration: (3) IGGY (acute kidney injury): (4) Hip fracture, right: Plan Spiral fracture right femur with extension into the lesser trochanter: Status post ORIF with intramedullary nail right femoral fracture. Continued care in the intensive care unit. Reviewed orthopedic note. Received 2 units RBC transfusion, 1 unit platelets. EBL 1250. Continues on perioperative antibiotic prophylaxis. With hypotension, hemodynamics maintained with norepinephrine. Blood noted at the incision today, Ortho aware, pending follow- up. Right thigh with swelling. Recheck CBC requested, after additional blood transfusion hemoglobin up to 8.4 on review this morning, this afternoon slightly down at 8. Recheck additional CBC at 7 PM. Slated to start low-dose Eliquis DVT prophylaxis this evening, as per order some additional bleeding may be anticipated, although in case significant drop below 8 on recheck hemoglobin, may need to hold off, otherwise may be able to start tonight. Continue SCD. Continue Cooper catheter in place for now. He has been mildly confused with encephalopathy superimposed on mild chronic dementia, pulling on Cooper, lines, soft restraints had to be utilized. 2 additional units of blood are available per discussion with the blood bank in case he needs additional transfusion. 4 units of platelets have been requested, although so far on repeat platelets are 131. Renew IV morphine for severe breakthrough pain. Oxycodone as needed for moderate pain. Discussed with his grandson. Once he is more stable, pending PT assessment and consideration of rehabilitation. As per discussion with his grandson will anticipate he will likely benefit from SNF rehabilitation before returning home when he is ready. Hypotension: With persistent pressor requirement, hemoglobin has improved, but is downtrending again. Recheck blood counts. Possible component of hemorrhagic shock, additionally with underlying decreased ejection fraction, 45-50%. Difficult to assess volume status. Transfuse as needed to maintain hemoglobin around 8. He has noted to have a hypoalbuminemia, 2.8, will give 25 g 25% albumin. Additionally will assess cortisol level. Anemia, thrombocytopenia: Reviewed repeat CBC. Recheck additional CBC tonight. Reviewed LDH, haptoglobin, not suggestive of hemolysis. Peripheral smear pending. So far thrombocytopenia responded well to platelet transfusion. Reassess blood counts. CAD, status post CABG. continue to monitor on telemetry. History of cardiac arrest: So far without chest pain or pressure. Hypotensive with acute blood loss anemia, on low rate Levophed support. Wean down as tolerating. He tells me he had had cardiac arrest after CABG. Contacting his primary provider's office, this was found to have been done in 2017 in [facility]. Medical records have been requested. Discussed with technical testing engineer. TTE reviewed, mildly decreased ejection fraction, 45-50%. Stop IV fluids. IGGY: Slight worsening of IGGY, creatinine up to 1.7, BUN 27. Noted mild hyperkalemia. Requested low potassium diet. Recheck chemistry tonight. Avoid NSAIDs. Discussed with his grandson concern for possibility of worsening renal function with underlying CKD. Continue hemodynamic support. Cooper catheter in place, monitoring intake output. Reviewed kidney ultrasound, or nephrosis/obstructive uropathy. Reviewed BUN, creatinine, anion gap, bicarb. Potassium. Would avoid NSAIDs. Alzheimer's dementia: With acute encephalopathy superimposed on mild Chronic dementia/cognitive dysfunction. Discussed with his grandson concern for difficulty resolving encephalopathy due to the underlying cognitive issue. Additionally on review of ultrasound done due to hyperbilirubinemia with noted slightly nodular contour of the liver suspicious for possible cirrhosis. Will check ammonia level. Hyperbilirubinemia: Reviewed gallbladder ultrasound. Gallbladder full of stones. Will need follow-up. Reassess chemistry. Lower extremity weak pulses: With severe peripheral artery disease. Does have residual flow. Elevated risk, but per discussion with cardiology she would allow for the currently needed surgery. Reviewed CT angiogram, arterial duplex. Discussed with interventional cardiology. Appreciate consultation. Hypomagnesemia: Reviewed magnesium, improved up to 1.9. Recheck level. 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 In case of additional cardiac arrest he had previously decided he would not want further resuscitation due to high likelihood of additional brain injury. Attestations 2 Medical Necessity Statement*: Continue admission for assessment and management after spiral femoral fracture with acute blood loss anemia, thrombocytopenia, IGGY on CKD, status post ORIF and intramedullary nail repair in a gentleman with underlying cardiomyopathy, EF 45- 50%, with shock. Coding Level of Care Code Critical Care >/= 30 minutes Critical care time (in minutes): 45 The high probability of a clinically significant, sudden or life threatening deterioration, as referenced in this documentation, required my full and direct attention, intervention and personal management. The critical care time shown is in addition to time spent performing any reported separately billable procedures and includes the following: [x] Data and vital sign review and interpretation [x ] Patient assessment, examination and intervention [x] Medication orders and management [x] Patient/Family updates as able [x] Care Coordination and Documentation. Diagnoses Bladder outlet obstruction N32.0 Dehydration E86.0 IGGY (acute kidney injury) N17.9 Hip fracture, right S72.001A
[2024-11-11 14:10] LABS: Basophils % 0.1 %; Hematocrit 23.7 % (37-53); Lymphocytes # 3.3 10^3/uL (0.8-4.8); Lymphocytes % 26.7 %; Mean Corpuscular HGB Conc 33.8 g/dL (30-55); Mean Corpuscular Hemoglobin 33.5 pg (27-33); Mean Corpuscular Volume 99.2 fl (82-101); Monocytes # 1.3 10^3/uL (0.2-0.9); Monocytes % 10.6 %; Neutrophils % 62.3 %; Nucleated Red Blood Cells # 0.1 /100WBC; Nucleated Red Blood Cells % 0.7 %; Platelet Count 131 10^3/cmm (157-399); Red Blood Count 2.39 10^6/uL (3.85-5.65); White Blood Count 12.51 10^3/uL (3.29-11.43)
--- NOTE | 2024-11-11 14:14 | P.PN_ITS ---
Subjective 2 Subjective: Patient is seen in the ICU. He was admitted secondary to soft blood pressures and low H&H following surgery last evening. He has some oozing from the wound, and he is quite sleepy at the moment. I was called by the nurses regarding oozing from his wound. I advised them that this would be expected. Medications: Reviewed: Yes Vitals/I&O/Wt Last Vital Signs Temp 98.4 F 11/11/24 07:30 Pulse 71 11/11/24 12:00 Resp 10 L 11/11/24 12:00 BP 94/56 11/11/24 12:00 Pulse Ox 99 11/11/24 12:00 O2 Del Method Room Air 11/11/24 12:00 11/10/24 11/11/24 11/11/24 22:59 06:59 14:59 Intake Total 598 / 1048 1646.625 / 2694.625 436.375 / 436.375 Output Total 3050 / 3050 Balance 598 / 1048 -1403.375 / -355.375 436.375 / 436.375 Weight last 48 hrs Weight 167 lb 8.821 oz Physical Exam 2 Const: COMMON NORMALS: no acute distress, average body habitus, patient oriented x3 and alert GENERAL APPEARANCE: cooperative and comfortable O RIENTATION/CONSCIOUSNESS: Yes awake HENMT: COMMON NORMALS: normocephalic and atraumatic HEAD & SCALP: n ormocephalic and atraumatic Eye: GENERAL EYE: appearance normal, both eyes and all related structures Chest: COMMONS NORMALS: normal inspection of the chest Resp: COMMON NORMALS: normal respiratory effort EFFORT & INSPECTION: Yes able to speak in complete sentences and Yes symmetric chest movement Extremity: RIGHT LOWER EXTREMITY: Yes upper leg (Dressing was removed and changed. Per nursing staff, the wound was benign.) Right upper leg: Yes inspection (No significant increase in swelling) Neuro: COMMON NORMALS: patient oriented x3 SENSORIUM/ORIENTATION: Yes alert Psych: COMMON NORMALS: mental status grossly normal APPEARANCE: Yes grossly normal ATTITUDE: Yes calm and Yes engaged ATTENTION/CONCENTRATION: Yes attention grossly intact Skin: COMMON NORMALS: no rashes or lesions noted GENERAL SKIN EXAM: no rashes or lesions noted Urinary Catheter Management: Cooper: Cath Placed During This Visit: yes Reason for Continuing Indwelling Catheter: Accurate Measurement of Urinary Output in Critically Ill Patients Urinary Catheter Date of Insertion: 11/09/24 Urinary Catheter Time of Insertion: 05:58 Data 11/11/24 13:47 11/11/24 03:43 A&P Assessment and plan (1) Displaced spiral fracture of shaft of left femur: This 84-year-old gentleman was in his usual state of health where he lives alone at home. He fell and was unable to ambulate. Patient came to the emergency department where he was found to have a proximal femur fracture involving the subtrochanteric area spiraling into the femoral shaft. Upon initial workup, he had cold extremities to palpation. CTA demonstrated severe atherosclerotic disease with no contrast running below the popliteal artery. For this reason, cardiovascular interventionalists was consulted. He was evaluated and examined and felt to be chronically this compromised rather than an acute situation. Patient also has a cardiac history. He has not had recent chest pain or pain in his feet. The patient underwent open reduction internal fixation last evening. This was well-tolerated, but there was blood loss secondary to prior bleeding at the fracture site as well as losses during the surgical procedure. Postoperatively, the patient was requiring pressors to maintain appropriate blood pressure given his cardiac history. He was therefore transferred to the intensive care unit. He is there today. Dressings have been changed, and per nursing staff, the wound looked good. He will continue care as needed under the direction of the hospitalist team. He will likely require retirement at the time of discharge. At this point, he is touchdown weightbearing. Qualifiers: Encounter type: initial encounter Fracture type: closed Qualified Code(s): S72.342A - Displaced spiral fracture of shaft of left femur, initial encounter for closed fracture (2) Fracture, subtrochanteric, right femur, closed: Qualifiers: Encounter type: initial encounter Fracture alignment: displaced Qualified Code(s): S72.21XA - Displaced subtrochanteric fracture of right femur, initial encounter for closed fracture Attestations 2 Medical Necessity Statement*: Per hospitalist team. Coding Level of Care Code Acute Code for Chg Fwd Diagnoses Closed displaced spiral fracture of shaft of left femur, initial encounter S72.342A Encounter type: initial encounter Fracture type: closed Closed displaced subtrochanteric fracture of right femur, initial encounter S72.21XA Encounter type: initial encounter Fracture alignment: displaced
[2024-11-11] MEDS: morphine 4 mg/mL SDV 1 mL 2 MG IVP (15:27)
--- NOTE | 2024-11-11 18:27 | PC.NURSE ---
Shift summary: Pt rested in bed throughout shift. Afebrile. Sinus rhythm with frequent PVCs noted. Pt mumbles and has garbled speech. This am he could tell me his name and date of . This evening. he is not answering anything except for shaking his head no to a drink of juice after much goading. He has been grabbing and pulling his todd, he has snapped of two todd stat locks. He has removing his cardiac monitoring several times. Medical restraints started this evening. Levophed remains infusing: started at 6 mcg/min this am, has been as high as 8mcg/min but is now at 7. His right leg is weeping serosangiouness fluid, soaked one dressing. Dressing replaced. Both Dr Walton and Dr Cruz aware. CBC drawn around 1330 and now to reassess his HGB. His urine is dark dara, he only had 110ml of output. No Bm this shift. He has not complained of pain, Oxy IR admin once and Morphine admin once. He yelled after repositioning, but then denied it hurting. When asked why he yelled he stated he did not know.
[2024-11-11 18:31] LABS: Basophils % 0.1 %; Hematocrit 22.7 % (37-53); Lymphocytes # 2.1 10^3/uL (0.8-4.8); Mean Corpuscular HGB Conc 33.5 g/dL (30-55); Mean Corpuscular Volume 98.7 fl (82-101); Mean Platelet Volume 11.9 fL (7.4-10.4); Monocytes # 1.1 10^3/uL (0.2-0.9); Monocytes % 10.1 %; Neutrophils # 7.78 10^3/uL (1.8-7.7); Neutrophils % 70.4 %; Nucleated Red Blood Cells # 0.1 /100WBC; Platelet Count 102 10^3/cmm (157-399); Red Cell Distribution Width 19.9 % (12.1-15.1); White Blood Count 11.05 10^3/uL (3.29-11.43)
[2024-11-11 18:52] LABS: Alanine Aminotransferase 22 U/L (0-41); Albumin Level 2.8 g/dL (3.5-5.2); Alkaline Phosphatase 93 U/L (40-130); Anion Gap 18.5 (5-19); Aspartate Amino Transferase 104 U/L (0-40); Blood Urea Nitrogen 35 mg/dL (8-23); Calcium 7.9 mg/dL (8.5-10.5); Carbon Dioxide 19 mmol/L (22-29); Chloride 106 mmol/L (98-107); Creatinine Clr Calc Pharmacy 28.8556; Globulin 2.3 g/dL (1.3-4.6); Glucose 124 mg/dL (65-115); Osmolality Calculated 297 mOsm/kg (285-295); Potassium 4.5 mmol/L (3.5-5.1); Sodium 139 mmol/L (136-145); Total Bilirubin 1.6 mg/dL (0.15-1.2); Total Protein 5.1 g/dL (6.6-8.7)
[2024-11-11] MEDS: albumin 25 G/100 ML BAG 60 G IV (18:52)
[2024-11-11 18:53] LABS: Ammonia 24 umol/L (16-60)
--- NOTE | 2024-11-11 19:28 | PC.NURSE ---
Spoke with Dr. Joy in reference to patient's Hgb and Hct. Order received for 1 unit RBC infusion, as well as confirmed ordering of unit of platelets. Lab has been notified of the platelets.
--- NOTE | 2024-11-11 19:37 | PC.NURSE ---
Contacted. Dr. Cruz in reference to lovenox. Received orders to hold lovenox until platelets from the blood center arrive, and administer at that time.
--- NOTE | 2024-11-11 21:35 | USR_ITS ---
PROCEDURE INFORMATION: Exam: US Abdomen Complete Exam date and time: 11/11/2024 8:23 AM Age: 84 years old Clinical indication: Condition or disease; Other: Worsening padmini. TECHNIQUE: Imaging protocol: Real-time ultrasound of the abdomen with image documentation. Complete exam. COMPARISON: CT angio chest PE protcl [id number] 10/22/2020 10:43 AM FINDINGS: Please note that exam is somewhat limited as patient was unable to be positioned properly secondary to a broken hip. Liver: There is a nodular contour to the liver suspicious for cirrhosis. No definite focal liver masses identified. No intrahepatic biliary ductal dilatation is noted. Gallbladder: The gallbladder is full of stones. No pericholecystic fluid is appreciated. Biliary ducts: Normal. No stones. No dilation. The common bile duct measures 6 to 7 mm. Pancreas: Unable to be visualized. Right kidney: The right kidney measures 9.5 x 5.9 x 4.5 cm in size with a cortical thickness of 1 cm. No renal mass or hydronephrosis is appreciated. Cortical echogenicity is equal to that of liver which is within normal limits. Left kidney: The left kidney measures 9.4 x 4.7 x 4.5 cm in size with a cortical thickness of 1.4 cm. No renal mass or hydronephrosis is appreciated. Cortical echogenicity is felt to be within normal limits. Spleen: Not visualized. Aorta: Normal. No aneurysm. Inferior vena cava: Normal. US/US abdomen complete* [id number] IMPRESSION: 1. Gallbladder filled with gallstones. 2. Slightly nodular contour to the liver suspicious for cirrhosis.
[2024-11-12] VITALS (60 sets, daily range): BP systolic 78–124; BP diastolic 41–90; PULSE 61–110; RESP 4–31; TEMP 36.5–36.9; O2SAT 89–100
--- NOTE | 2024-11-12 00:25 | ECG_ITS ---
[facility] 2024[facility]12 Pat Name: Israel Hardin Department: Room: [facility] Gender: Male Photogrammetric Engineer: : 1940 Requested By: Kandy Joy Order Number: [id number] Geraldine MD: Carlos Manuel Ocasio M.D. Measurements Intervals Adel Rate: 89 P: 19 WY: 128 QRS: -5 QRSD: 173 T: 167 QT: 429 QTc: 524 Interpretive Statements SINUS RHYTHM WITH FREQUENT VENTRICULAR PREMATURE COMPLEXES LEFT BUNDLE BRANCH BLOCK [120+ ms QRS DURATION, 80+ ms Q/S IN V1/V2, 85+ ms R IN I/aVL/V5/V6] Compared to ECG 11/09/2024 17:36:07 Ventricular premature complex(es) now present Electronically Signed On 11-12-2024 17:18:18 SOLAR INSTALLATION HELPER by Carlos Manuel Ocasio M.D. [email or web address]
[2024-11-12] MEDS: norepinephrine 4 MG/250 ML BAG 22.5 MG IV (05:41)
[2024-11-12 05:51] LABS: Basophils % 0.1 %; Hematocrit 27.5 % (37-53); Lymphocytes # 2.4 10^3/uL (0.8-4.8); Lymphocytes % 20.2 %; Mean Corpuscular HGB Conc 33.1 g/dL (30-55); Mean Corpuscular Hemoglobin 31.8 pg (27-33); Mean Corpuscular Volume 96.2 fl (82-101); Mean Platelet Volume 12.2 fL (7.4-10.4); Monocytes # 1.3 10^3/uL (0.2-0.9); Monocytes % 10.9 %; Neutrophils # 8.26 10^3/uL (1.8-7.7); Neutrophils % 68.6 %; Nucleated Red Blood Cells # 0.1 /100WBC; Nucleated Red Blood Cells % 0.7 %; Platelet Count 125 10^3/cmm (157-399); Red Blood Count 2.86 10^6/uL (3.85-5.65); Red Cell Distribution Width 19.4 % (12.1-15.1); White Blood Count 12.06 10^3/uL (3.29-11.43)
[2024-11-12 06:14] LABS: Alanine Aminotransferase 13 U/L (0-41); Albumin Level 3.3 g/dL (3.5-5.2); Alkaline Phosphatase 104 U/L (40-130); Anion Gap 18.8 (5-19); Aspartate Amino Transferase 122 U/L (0-40); Blood Urea Nitrogen 39 mg/dL (8-23); Calcium 8.2 mg/dL (8.5-10.5); Carbon Dioxide 21 mmol/L (22-29); Chloride 107 mmol/L (98-107); Creatinine Clr Calc Pharmacy 26.2323; Glucose 109 mg/dL (65-115); Osmolality Calculated 304 mOsm/kg (285-295); Potassium 4.8 mmol/L (3.5-5.1); Sodium 142 mmol/L (136-145); Total Bilirubin 1.3 mg/dL (0.15-1.2); Total Protein 5.3 g/dL (6.6-8.7)
[2024-11-12 06:15] LABS: Cortisol Random 24.24 ug/dL (2.47-19.5)
--- NOTE | 2024-11-12 07:25 | PC.NURSE ---
Pt has managed to loosen his restraints enough, he was grasping and pulled on his left IV out. Cath tip intact. No redness or swelling noted at site. Levophed now to right IV, rate decreased.
[2024-11-12] MEDS: pantoprazole 40 mg SDV IVP ×2 (09:18→18:13)
--- NOTE | 2024-11-12 11:02 | PC.NURSE ---
Report given to [facility], given to FERMIN Lebron.
[2024-11-12 12:12] LABS: Estmated Average Glucose 91; Hemoglobin A1C 4.8 % (4.0-6.0)
[2024-11-12 12:18] LABS: Iron 41 ug/dL (59-158); Percent Saturation 27.1 % (20-50); Total Iron Binding Capacity 151 mcg/dl; Unsaturated Iron Binding 110 ug/dL (112-347)
[2024-11-12] MEDS: oxyCODONE 5 mg IR Tab/Cap PO (13:38)
[2024-11-12] MEDS: dextrose 5%-sod chloride 0.9% 1,000 ML 75 ML IV (13:39)
--- NOTE | 2024-11-12 13:56 | P.PN_ITS ---
Subjective 2 Subjective: Patient is seen in ICU. Pressors are diminishing. He is talkative but still somewhat confused Medications: Reviewed: Yes Vitals/I&O/Wt Last Vital Signs Temp 98.3 F 11/11/24 23:37 Pulse 110 H 11/12/24 09:57 Resp 21 H 11/12/24 13:38 BP 100/67 11/11/24 23:37 Pulse Ox 94 11/12/24 13:38 O2 Del Method Room Air 11/12/24 09:57 O2 Flow Rate 3 11/11/24 22:15 11/11/24 11/12/24 11/12/24 22:59 06:59 14:59 Intake Total 338 / 774.375 643.688 / 1418.063 172 / 172 Output Total 110 / 110 100 / 210 Balance 228 / 664.375 543.688 / 1208.063 172 / 172 Weight last 48 hrs Weight 167 lb 4.8 oz Weight 167 lb 8.821 oz Physical Exam 2 Const: COMMON NORMALS: no acute distress, average body habitus, patient oriented x3 and alert GENERAL APPEARANCE: cooperative and comfortable O RIENTATION/CONSCIOUSNESS: Yes awake HENMT: COMMON NORMALS: normocephalic and atraumatic HEAD & SCALP: n ormocephalic and atraumatic Eye: GENERAL EYE: appearance normal, both eyes and all related structures Chest: COMMONS NORMALS: normal inspection of the chest Resp: COMMON NORMALS: normal respiratory effort EFFORT & INSPECTION: Yes able to speak in complete sentences and Yes symmetric chest movement Extremity: RIGHT LOWER EXTREMITY: Yes upper leg (Dressing was removed and changed. Wound is benign) Right upper leg: Yes inspection (No significant increase in swelling) and Yes neurovascular exam (Intact distally) Neuro: COMMON NORMALS: patient oriented x3 SENSORIUM/ORIENTATION: Yes alert Psych: COMMON NORMALS: mental status grossly normal APPEARANCE: Yes grossly normal ATTITUDE: Yes calm and Yes engaged ATTENTION/CONCENTRATION: Yes attention grossly intact Skin: COMMON NORMALS: no rashes or lesions noted GENERAL SKIN EXAM: no rashes or lesions noted Urinary Catheter Management: Cooper: Cath Placed During This Visit: yes Reason for Continuing Indwelling Catheter: Accurate Measurement of Urinary Output in Critically Ill Patients Urinary Catheter Date of Insertion: 11/09/24 Urinary Catheter Time of Insertion: 05:58 Data 11/13/24 04:13 11/13/24 04:13 A&P Assessment and plan (1) Displaced spiral fracture of shaft of left femur: Patient continues in the ICU following open reduction internal fixation of right subtrochanteric and femoral shaft fractures. Currently, they are weaning his pressors. He is eating, but is still somewhat confused. He will need to be touchdown weightbearing when he is able to get up with physical therapy. Qualifiers: Encounter type: initial encounter Fracture type: closed Qualified Code(s): S72.342A - Displaced spiral fracture of shaft of left femur, initial encounter for closed fracture (2) Fracture, subtrochanteric, right femur, closed: Qualifiers: Encounter type: initial encounter Fracture alignment: displaced Qualified Code(s): S72.21XA - Displaced subtrochanteric fracture of right femur, initial encounter for closed fracture Attestations 2 Medical Necessity Statement*: Per hospitalist team Coding Level of Care Code Acute Code for Chg Fwd Diagnoses Closed displaced spiral fracture of shaft of left femur, initial encounter S72.342A Encounter type: initial encounter Fracture type: closed Closed displaced subtrochanteric fracture of right femur, initial encounter S72.21XA Encounter type: initial encounter Fracture alignment: displaced
--- NOTE | 2024-11-12 14:29 | PC.SOCIAL ---
IMM updated IMM dated and initialed, copy given to patient and copy placed in chart.
--- NOTE | 2024-11-12 15:27 | PC.SLP ---
MULTI SENSOR OPERATOR attempted to assess. Pt not wanting to participate at this time. The pt is confused.
[2024-11-12 15:47] LABS: Anion Gap 18.8 (5-19); Blood Urea Nitrogen 40 mg/dL (8-23); Calcium 7.6 mg/dL (8.5-10.5); Carbon Dioxide 18 mmol/L (22-29); Chloride 104 mmol/L (98-107); Creatinine Clr Calc Pharmacy 27.4646; Glucose 172 mg/dL (65-115); Osmolality Calculated 298 mOsm/kg (285-295); Potassium 3.8 mmol/L (3.5-5.1); Sodium 137 mmol/L (136-145)
--- NOTE | 2024-11-12 16:31 | PM.PN ---
Subjective Subjective: Hospital course, labs appreciated. Today morning seen sitting up in ICU. Awake, alert x 2, denies any nausea vomiting, headache. Currently on Levophed of 2. Having frequent trigeminy. Remains on room air. Medications: Reviewed: Yes Vitals/I&O/Wt Last Vital Signs Temp 98.3 F 11/11/24 23:37 Pulse 110 H 11/12/24 09:57 Resp 21 H 11/12/24 13:38 BP 100/67 11/11/24 23:37 Pulse Ox 94 11/12/24 13:38 O2 Del Method Room Air 11/12/24 09:57 O2 Flow Rate 3 11/11/24 22:15 11/12/24 11/12/24 11/12/24 06:59 14:59 22:59 Intake Total 643.688 / 1418.063 172 / 172 Output Total 100 / 210 Balance 543.688 / 1208.063 172 / 172 Weight last 48 hrs Weight 75.886 kg Weight 76 kg Physical Exam Narrative: General: No acute distress, A and O x 1 to 2 HEENT: PERRLA, pupils bilaterally equal and reactive Chest: Bilateral bronchial breath sounds over lung. Occasional rhonchi CVS: S1-S2 regularly irregular, no murmurs, no tachycardia, no gallops, no rubs Abdomen: Soft, nontender, no organomegaly, bowel sounds present Neuro: No focal deficits, no facial deformity, Urinary Catheter Management: Cooper: Cath Placed During This Visit: yes Reason for Continuing Indwelling Catheter: Accurate Measurement of Urinary Output in Critically Ill Patients Urinary Catheter Date of Insertion: 11/09/24 Urinary Catheter Time of Insertion: 05:58 Data 11/12/24 04:57 11/12/24 15:06 A&P Assessment and plan (1) Fracture, subtrochanteric, right femur, closed: Postoperative day 2. Did develop postoperative hemorrhagic shock. Hemoglobin stable now. Target hemoglobin more than 8 given history of CAD. Continued Cooper catheterization. PT when able. Qualifiers: Encounter type: initial encounter Fracture alignment: displaced Qualified Code(s): S72.21XA - Displaced subtrochanteric fracture of right femur, initial encounter for closed fracture (2) Postoperative hemorrhagic shock: Associated with acute kidney injury. Target hemoglobin more than 8. Transfuse accordingly. Wean Levophed keeping mean arterial pressure over 65. (3) IGGY (acute kidney injury): Most likely in setting of postoperative shock along with bladder outlet obstruction. Baseline creatinine less than 1. Currently 2.1. Associated with mild metabolic acidosis. Medical reconciliation done for nephrotoxic drugs. Monitor urine output. Cooper catheterization. D5 NS at 75 cc/h. Watch for fluid overload. Currently patient slightly dehydrated. (4) Bladder outlet obstruction: Will need to discharge on Cooper catheter. Follow-up with urology as an outpatient. (5) Thrombocytopenia: Acute. Could be in setting of shock. Cannot rule out in setting of chronic alcohol use. Continue to monitor. Post platelet transfusion. (6) Chronic alcohol use: Consumes whiskey daily in the afternoon. Check thiamine level. [facility] protocol when needed. (7) Encephalopathy: Most likely a combination of Alzheimer's along with possible Wernicke's in setting of chronic alcohol use. Cannot rule out mild sundowning given postoperative status. Thiamine 500 mg one-time followed by 100 mg IV daily. Start on donepezil nightly. Frequent reorientation. Fall precautions. (8) Cardiomyopathy: Echocardiogram shows EF of 45 to 50%, grade 1 diastolic dysfunction, mild MR. Does have a history of CAD in the past. Denies any chest pain. Will benefit from possible ACS workup as an outpatient. Having frequent trigeminy's. Check EKG. Target potassium around 4, magnesium around 2. If continues to have frequent trigeminy's and remains in shock will benefit from possible amiodarone. (9) Coronary artery disease: (10) HTN (hypertension): (11) Dehydration: (12) Alzheimer disease: Plan CODE STATUS: DNR/DNI. Grandson is DPOA. 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 In case of additional cardiac arrest he had previously decided he would not want further resuscitation due to high likelihood of additional brain injury. Regular diet. Concerns for mild aspiration. Speech evaluation. Physical therapy. Lovenox for DVT prophylaxis. Attestations Medical Necessity Statement*: Requires further hospitalization for management of postoperative care post-ORIF, postoperative hemorrhagic shock, altered mental status in setting of alcohol abuse, acute kidney injury, bladder obstruction Critical Care Time: The high probability of a clinically significant, sudden or life threatening deterioration of the patient's [cardiac, renal, hematological] system(s) required my full and direct attention, intervention and personal management. The critical care time is as shown. This time is in addition to time spent performing any reported procedures but includes the following: [x] Data and vital sign review and interpretation [x] Patient assessment, examination and intervention [x] Documentation [x] Medication orders and management Critical Care Time (min): 70 Coding Level of Care Code Critical Care >/= 30 minutes Critical care time (in minutes): 70 The high probability of a clinically significant, sudden or life threatening deterioration, as referenced in this documentation, required my full and direct attention, intervention and personal management. The critical care time shown is in addition to time spent performing any reported separately billable procedures and includes the following: [x] Data and vital sign review and interpretation [x] Patient assessment, examination and intervention [x] Medication orders and management [x] Patient/Family updates as able [x] Care Coordination and Documentation. Other Coding Information This patient has a high probability of clinically significant, sudden or life threatening deterioration of the patient's (neurological/pulmonary/cardiac/renal/ID/endocrine) systems required my full, direct attention, the highest level of physician preparedness for urgent intervention and personal management. I managed/supervised life or organ supporting interventions that required frequent physician assessment. I devoted my full attention in the ICU to the direct care of this patient for the period of time indicated above. Time I spent with family or surrogate(s) is included only if the patient was incapable of providing necessary information or participating in decision making. This time includes the following services provided: Telemetry review Hemodynamic interpretation, assessment and management Review and interpretation of CXR Review and interpretation of lab values Review and interpretation of microbiologic data and culture results Review of medications and administration Review and interpretation of Nutrition requirements and management Discussion of management with other consultants and services Clinical update to family members Diagnoses Closed displaced subtrochanteric fracture of right femur, initial encounter S72.21XA Encounter type: initial encounter Fracture alignment: displaced Postoperative hemorrhagic shock T81.19XA IGGY (acute kidney injury) N17.9 Bladder outlet obstruction N32.0 Thrombocytopenia D69.6 Chronic alcohol use F10.90 Encephalopathy G93.40 Cardiomyopathy I42.9 Coronary artery disease I25.10 HTN (hypertension) I10 Dehydration E86.0 Alzheimer disease G30.9; F02.80
--- NOTE | 2024-11-12 20:15 | PC.NURSE ---
Shift summary; Pt rested in be throughout shift. He pulled out an IV catheter first thing this shift, even with restraints to prevent him from tubing. He was wide awake and hungry this am. He did have trouble feeding himself. He preferred to not use a straw, that improved his ability. At lunch time he stated '' I am trying to complete this transfer and no one will help me , he pointed at the jello. He ate entire lunch with feeding assistance. Levophed gtt remains on. It was weaned down to 1mcg/min. It was off briefly for an hour but his BP started dropping again, so restarted at 2 mcg/min, it remains at 2. Sinus rhtyhm with very frequent PVS, at times Trigeminy. Amiodarone gtt started at shift change 1mg/hr. Charlie called today for an update. He stated pt always drinks whiskey around 1500 and has for as long as he can remember. Dr Lynn notified of this. Thiamin IV started today. He did work somewhat with Ot and PT today. He was unable to sit at side of bed. His incision leaked since lst dressing change, so it was changed again around 1400, after Dr Walton evaluated it. IVF started today. His uirne output was 150 this shift, it is not as dark as it was yesterday.
[2024-11-12] MEDS: enoxaparin 30 mg/0.3 mL Syringe SUBCUT (21:52)
--- NOTE | 2024-11-12 22:16 | PC.NURSE ---
When Nurse attempted donepezil administration, patient seemed unable to effectively swallow the tablets and they remained in his mouth until falling out in the cup of water. Patient then refused out of frustration. Dr. Joy notified, orders received to skip this dose.
[2024-11-13] VITALS (100 sets, daily range): BP systolic 68–164; BP diastolic 31–122; PULSE 40–128; RESP 7–37; TEMP 36.2–37.2; O2SAT 71–100
[2024-11-13] MEDS: dextrose 5%-sod chloride 0.9% 1,000 ML 75 ML IV (02:31)
[2024-11-13] MEDS: norepinephrine 4 MG/250 ML BAG 15 MG IV (03:21)
[2024-11-13 04:49] LABS: Basophils % 0.1 %; Eosinophils % 0.1 %; Hematocrit 24.4 % (37-53); Lymphocytes # 1.9 10^3/uL (0.8-4.8); Lymphocytes % 19.2 %; Mean Corpuscular HGB Conc 32.8 g/dL (30-55); Mean Corpuscular Hemoglobin 32.4 pg (27-33); Mean Corpuscular Volume 98.8 fl (82-101); Mean Platelet Volume 12.2 fL (7.4-10.4); Monocytes # 1.3 10^3/uL (0.2-0.9); Monocytes % 13.3 %; Neutrophils # 6.53 10^3/uL (1.8-7.7); Neutrophils % 66.8 %; Nucleated Red Blood Cells # 0.1 /100WBC; Nucleated Red Blood Cells % 0.5 %; Platelet Count 105 10^3/cmm (157-399); Red Blood Count 2.47 10^6/uL (3.85-5.65); Red Cell Distribution Width 20.3 % (12.1-15.1); White Blood Count 9.78 10^3/uL (3.29-11.43)
[2024-11-13 05:07] LABS: Alanine Aminotransferase 8 U/L (0-41); Albumin Level 2.8 g/dL (3.5-5.2); Alkaline Phosphatase 155 U/L (40-130); Anion Gap 16.6 (5-19); Aspartate Amino Transferase 168 U/L (0-40); Blood Urea Nitrogen 37 mg/dL (8-23); Calcium 7.6 mg/dL (8.5-10.5); Carbon Dioxide 21 mmol/L (22-29); Chloride 108 mmol/L (98-107); Globulin 2.2 g/dL (1.3-4.6); Glucose 145 mg/dL (65-115); Osmolality Calculated 305 mOsm/kg (285-295); Potassium 3.6 mmol/L (3.5-5.1); Sodium 142 mmol/L (136-145); Total Bilirubin 1.1 mg/dL (0.15-1.2)
[2024-11-13 05:18] LABS: Magnesium 1.9 mg/dL (1.7-2.3)
[2024-11-13 05:34] LABS: Folate Level 11.3 ng/mL (4.5-32.2)
[2024-11-13] MEDS: pantoprazole 40 mg SDV IVP ×2 (09:42→17:33)
--- NOTE | 2024-11-13 10:17 | XR_ITS ---
WS: [id number] CHEST XRAY TECHNIQUE: Portable chest. CLINICAL INFORMATION: Post PICC insertion FINDINGS: RIGHT PICC line with tip at the SVC/RA junction in good position. No pneumothorax. Prior sternotomy. Aortic calcification. Cardiomegaly. Chronic emphysematous changes. Osteopenia. XR/XR chest 1V portable [id number] IMPRESSION: RIGHT PICC line in good position.
--- NOTE | 2024-11-13 10:55 | PICC.NOTE ---
Triple lumen PICC placed to right brachial vein. Referred to vascular access nurse for PICC placement due to need for IV vasopressors. Risks and benefits discussed and informed consent obtained via phone from Rosas Bosch. Right arm assessed with right brachial vein measuring 4.0 mm, straight, and apparent best choice for placement. Using sterile technique and MST, right brachial vein accessed x 1 stick. Mid-arm circumference measured 10 cm from right AC 26 cm. Trimmed cath 39 cm with 0 cm external length noted. CXR shows tip in distal SVC, in good position for use per radiologist. Line secured with stat-lock. Insertion site covered with Secureport IV and TSM. Report given to bedside nurse, FERMIN Hill.
--- NOTE | 2024-11-13 11:08 | PC.NURSE ---
Upon morning assessment, right AC IV was found to be infiltrated. NUrse had great difficulty starting new IV in right arm. SHortly after Left Arm IV placement, that line also infiltrated. Due to difficult access and use of vesidcan medication (levophed and amiodarone), nurse received order for PICC line from Dr castellanos. Left hand IV started and running levophed and amiodarone through it while waiting on PICC to be placed.
[2024-11-13 11:26] LABS: Glucose Point of Care 168 mg/dL (70-110)
--- NOTE | 2024-11-13 11:30 | ECG_ITS ---
[facility] 2024[facility]13 Pat Name: Israel Hardin Department: Room: [facility] Gender: Male Design Inserter: : 1940 Requested By: Rios Garvey Order Number: [id number] Geraldine MD: Alessandro Santiago M.D. Measurements Intervals [place] Rate: 88 P: 0 ID: 0 QRS: -12 QRSD: 163 T: 151 QT: 417 QTc: 506 Interpretive Statements SINUS RHYTHM WITH FREQUENT VENTRICULAR PREMATURE COMPLEXES LEFT BUNDLE BRANCH BLOCK [120+ ms QRS DURATION, 80+ ms Q/S IN V1/V2, 85+ ms R IN I/aVL/V5/V6] Electronically Signed On 11-13-2024 21:21:28 TURNAROUND ENGINEER by Alessandro Santiago M.D. [email or web address]
[2024-11-13] MEDS: amiodarone 150 MG/100 ML PREMIX 400 MG IV (11:54)
[2024-11-13] MEDS: sodium chloride 0.9% 100 mL Bag 50 ML IV (12:54)
--- NOTE | 2024-11-13 14:17 | P.PN_ITS ---
Subjective 2 Subjective: Patient was seen in his room. Physical therapy was there and noted that there was decreased strength to the patient's right upper and lower extremities. Medications: Reviewed: Yes Vitals/I&O/Wt Last Vital Signs Temp 98.9 F 11/13/24 13:22 Pulse 100 11/13/24 13:22 Resp 18 11/13/24 13:22 BP 97/69 11/13/24 13:22 Pulse Ox 99 11/13/24 13:22 O2 Del Method Room Air 11/13/24 10:00 O2 Flow Rate 3 11/11/24 22:15 11/12/24 11/13/24 11/13/24 22:59 06:59 14:59 Intake Total 163.812 / 019.904 4102.391 / 1580.203 741.25 / 741.25 Output Total 150 / 150 200 / 350 Balance 13.812 / 076.602 0694.391 / 1230.203 741.25 / 741.25 Weight last 48 hrs Weight 169 lb 9.6 oz Weight 167 lb 4.8 oz Physical Exam 2 Const: COMMON NORMALS: no acute distress, average body habitus and alert G ENERAL APPEARANCE: other ORIENTATION/CONSCIOUSNESS: Yes awake HENMT: COMMON NORMALS: normocephalic and atraumatic HEAD & SCALP: n ormocephalic and atraumatic Eye: GENERAL EYE: appearance normal, both eyes and all related structures Chest: COMMONS NORMALS: normal inspection of the chest Resp: COMMON NORMALS: normal respiratory effort EFFORT & INSPECTION: Yes able to speak in complete sentences and Yes symmetric chest movement Extremity: RIGHT LOWER EXTREMITY: Yes upper leg (Wound remains benign and drainage is lessening) Right upper leg: Yes inspection (No significant increase in swelling) and Yes neurovascular exam (Weakness right upper and lower extremities) Neuro: SENSORIUM/ORIENTATION: Yes alert Psych: COMMON NORMALS: mental status grossly normal APPEARANCE: Yes grossly normal ATTITUDE: Yes calm and Yes engaged ATTENTION/CONCENTRATION: Yes attention grossly intact Skin: COMMON NORMALS: no rashes or lesions noted GENERAL SKIN EXAM: no rashes or lesions noted Urinary Catheter Management: Cooper: Cath Placed During This Visit: yes Reason for Continuing Indwelling Catheter: Accurate Measurement of Urinary Output in Critically Ill Patients Urinary Catheter Date of Insertion: 11/09/24 Urinary Catheter Time of Insertion: 05:58 Data 11/14/24 04:45 11/14/24 04:45 A&P Assessment and plan (1) Displaced spiral fracture of shaft of left femur: Patient continues in the ICU following open reduction internal fixation of right subtrochanteric and femoral shaft fractures. Currently, they are weaning his pressors. He is eating, but is still somewhat confused. He will need to be touchdown weightbearing when he is able to get up with physical therapy. Today, therapy noted decreased strength in his right upper and lower extremities. I have advised Dr. Garvey of this finding. Stroke evaluation was undertaken and the patient was found to have had a stroke. Neurology was consulted. Treatment will be provided as indicated. When the patient is able to work with physical therapy, he will be touchdown weightbearing on the right lower extremity provided he is able to ambulate. Qualifiers: Encounter type: initial encounter Fracture type: closed Qualified Code(s): S72.342A - Displaced spiral fracture of shaft of left femur, initial encounter for closed fracture (2) Fracture, subtrochanteric, right femur, closed: Qualifiers: Encounter type: initial encounter Fracture alignment: displaced Qualified Code(s): S72.21XA - Displaced subtrochanteric fracture of right femur, initial encounter for closed fracture Attestations 2 Medical Necessity Statement*: Per hospitalist team Coding Level of Care Code Acute Code for Chg Fwd Diagnoses Closed displaced spiral fracture of shaft of left femur, initial encounter S72.342A Encounter type: initial encounter Fracture type: closed Closed displaced subtrochanteric fracture of right femur, initial encounter S72.21XA Encounter type: initial encounter Fracture alignment: displaced
--- NOTE | 2024-11-13 14:49 | CTR_ITS ---
PROCEDURE INFORMATION: Exam: CT Head Without Contrast Exam date and time: 11/13/2024 3:34 PM Age: 84 years old Clinical indication: Altered mental status/memory loss; Prior surgery; Surgery date: Post-operative (0-2 days); Surgery type: RT hip surgery; Additional info: AMS TECHNIQUE: Imaging protocol: Computed tomography of the head without contrast. Radiation optimization: All CT scans at this facility use at least one of these dose optimization techniques: automated exposure control; mA and/or kV adjustment per patient size (includes targeted exams where dose is matched to clinical indication); or iterative reconstruction. 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 Moderate nonspecific white matter low attenuation which may be related to microvascular ischemic changes. Cerebral ventricles: The ventricles and sulci are prominent in size compatible with moderate atrophy. Paranasal sinuses: No fluid levels. Mastoid air cells: Visualized mastoid air cells are well aerated. Bones: No acute calvarial fracture. Soft tissues: Visualized soft tissues are unremarkable. 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
--- NOTE | 2024-11-13 14:50 | USCV_ITS ---
Israel Hardin Age: 84 Gender: M : 1940 Exam Date: 11/13/2024 19:03 Ordering Phys: Rios Garvey MD Technologist: JERONIMO [place] [facility] [place]: acute LEFT posterior cerebral artery infarct. RIGHT hemiparesis, profound. Risk Factors: unknown Previous Vascular Surgery: unknown Right Brachial BP: 137 / 85 Left Brachial BP: / Right Left Velocity (cm/s) Spectral Plaque Velocity (cm/s) Spectral Plaque Syst/Diast Broadening Syst/Diast Broadening 76.50/ 23.30 Mod Champ Prox CCA 48.90 / 17.30 Min Hetro 93.20/ 36.10 Mod Hetro Mid CCA 58.20 / 29.00 Mod Hetro 75.00/ 28.40 Mod Champ Distal CCA 57.30 / 17.20 Mod Champ 150.60/38.90 Marked Champ Prox ICA 71.00 / 34.50 Marked Champ 138.70/51.90 Mod Hetro Mid ICA 58.20 / 29.00 Marked Hetro 120.00/51.30 Mod Hetro Distal ICA 28.80 / 12.50 Marked Hetro 112.30 Mod Hetro ECA 63.80 Min Homo 2.60 ICA/CCA 1.70 Antegrade Vertebral Antegrade 38.10/ 10.80 cm/s 52.20/ 15.10 cm/s Tri Subclavian Tri 58.10 91.70 FINDINGS Comparison: none available. Diffuse bilateral scattered calcified plaque and intimal thickening throughout the common carotid arteries and extending through the bifurcation. Greater atherosclerosis on the left. Mild elevation of velocity right ICA. Abnormal waveform left ICA, dampened with poor visualization of the distal left ICA. Antegrade vertebral arteries. CONCLUSIONS Abnormal waveform left distal ICA, distal obstructing lesion is suspected. This can be further evaluated by CTA. Right ICA stenosis 50-69%. Diffuse carotid atherosclerosis. Dr. Angelica Thompson DO (Electronically Signed) Final Date: 16 November 2024 08:46 S
[2024-11-13] MEDS: morphine 4 mg/mL SDV 1 mL 2 MG IVP ×2 (15:00→21:05)
[2024-11-13 16:31] LABS: Glucose Point of Care 149 mg/dL (70-110)
--- NOTE | 2024-11-13 16:31 | P.PN_ITS ---
Subjective 2 Subjective: No acute events overnight. Patient seen multiple times during the day today. Today morning events seen with family at bedside patient is more awake, able to follow simple directions. Is alert. Slow to respond. Continues to remain on Levophed of 1. Mean artery pressure has maintained over 65. Later in the day at around at around 2:45 PM received a call that patient is having difficulty in moving his right side of the body. On examination he was found to have weakness in the right upper and lower limb with dilated right pupil. Stat CT head was done which is concerning for left acute [employer] infarct. Medications: Reviewed: Yes Vitals/I&O/Wt Last Vital Signs Temp 98.9 F 11/13/24 13:22 Pulse 87 11/13/24 14:15 Resp 18 11/13/24 15:00 BP 113/63 11/13/24 14:15 Pulse Ox 99 11/13/24 15:00 O2 Del Method Room Air 11/13/24 13:15 O2 Flow Rate 3 11/11/24 22:15 11/13/24 11/13/24 11/13/24 06:59 14:59 22:59 Intake Total 1244.391 / 1580.203 741.25 / 741.25 Output Total 200 / 350 50 / 50 Balance 1044.391 / 1230.203 691.25 / 691.25 Weight last 48 hrs Weight 76.929 kg Weight 75.886 kg Physical Exam 2 Narrative: General: No acute distress, AO times x 2-3, slow to respond HEENT: PERRLA, right pupil dilated, sluggishly reactive Chest: Bilateral bronchial breath sounds over lung. 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 New since 11/09. Aspirin 325 mg one-time followed by 81 mg daily, atorvastatin 40 mg daily. Next appreciate A1c. Check lipid panel. Carotid Doppler. Will consult neurology for further recommendations. Continue with PT/speech evaluation. Permissible hypertension. For now we will continue with Levophed keeping mean arterial pressure more than 65. Hold off on antihypertensives. Patient does have thrombocytopenia. Will check DIC panel (2) Fracture, subtrochanteric, right femur, closed: Postoperative day 3. Did develop postoperative hemorrhagic shock. Hemoglobin stable now. Target hemoglobin more than 8 given history of CAD. Continues to remain on Levophed. Continued Cooper catheterization. Physical therapy. Qualifiers: Encounter type: initial encounter Fracture alignment: displaced Qualified Code(s): S72.21XA - Displaced subtrochanteric fracture of right femur, initial encounter for closed fracture (3) Postoperative hemorrhagic shock: Associated with acute kidney injury. Target hemoglobin more than 8. Still requiring Levophed to maintain mean artery pressure over 65. Hemoglobin has remained stable around 8. 9.1 yesterday. Will transfuse 1 more unit of PRBC. Wean Levophed keeping mean arterial pressure over 65. (4) IGGY (acute kidney injury): Most likely in setting of postoperative shock along with bladder outlet obstruction. Baseline creatinine less than 1. Currently improving down to 1.8. Associated with mild metabolic acidosis, improving today. Medical reconciliation done for nephrotoxic drugs. Monitor urine output. Cooper catheterization. Hold off on IV fluids today as patient will be getting blood transfusion. (5) Bladder outlet obstruction: Will need to discharge on Cooper catheter. Follow-up with urology as an outpatient. (6) Thrombocytopenia: Acute. Could be in setting of shock. Cannot rule out in setting of chronic alcohol use. Continue to monitor. Post platelet transfusion. Given new stroke will check DIC panel. (7) Chronic alcohol use: Consumes whiskey daily in the afternoon. Check thiamine level. Received thiamine 500 mg IV one-time, continue with 100 mg daily for now. CIWA protocol when needed. (8) Encephalopathy: Most likely a combination of Alzheimer's along with possible Wernicke's in setting of chronic alcohol use. Cannot rule out mild sundowning given postoperative status. Continue with thiamine 100 mg IV daily. Continue with donepezil nightly. Frequent reorientation. Fall precautions. (9) Cardiomyopathy: Echocardiogram shows EF of 45 to 50%, grade 1 diastolic dysfunction, mild MR. Does have a history of CAD in the past. Denies any chest pain. Will benefit from possible ACS workup as an outpatient. Having frequent trigeminy's. Check EKG. Target potassium around 4, magnesium around 2. If continues to have frequent trigeminy's and remains in shock will benefit from possible amiodarone. (10) Coronary artery disease: (11) HTN (hypertension): (12) Dehydration: (13) Alzheimer disease: Plan CODE STATUS: DNR/DNI. Grandson is DPOA. 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 In case of additional cardiac arrest he had previously decided he would not want further resuscitation due to high likelihood of additional brain injury. Regular diet. Concerns for mild aspiration. Speech evaluation. Physical therapy. Lovenox for DVT prophylaxis. Attestations 2 Medical Necessity Statement*: Requires further hospitalization for management of acute left [employer] stroke, postoperative hemorrhagic shock, post ORIF, acute kidney injury as patient remains on Levophed, requiring blood transfusion Critical Care Time: The high probability of a clinically significant, sudden or life threatening deterioration of the patient's [neurological, hematological, renal, cardiac] s ystem(s) required my full and direct attention, intervention and personal management. The critical care time is as shown. This time is in addition to time spent performing any reported procedures but includes the following: [x] Data and vital sign review and interpretation [x] Patient assessment, examination and intervention [x] Documentation [x] Medication orders and management Critical Care Time (min): 70 Coding Level of Care Code Critical Care >/= 30 minutes Critical care time (in minutes): 70 The high probability of a clinically significant, sudden or life threatening deterioration, as referenced in this documentation, required my full and direct attention, intervention and personal management. The critical care time shown is in addition to time spent performing any reported separately billable procedures and includes the following: [x] Data and vital sign review and interpretation [x ] Patient assessment, examination and intervention [x] Medication orders and management [x] Patient/Family updates as able [x] Care Coordination and Documentation. Other Coding Information This patient has a high probability of clinically significant, sudden or life threatening deterioration of the patient's (neurological/pulmonary/cardiac/renal/ID/endocrine) systems required my full, direct attention, the highest level of physician preparedness for urgent intervention and personal management. I managed/supervised life or organ supporting interventions that required frequent physician assessment. I devoted my full attention in the ICU to the direct care of this patient for the period of time indicated above. Time I spent with family or surrogate(s) is included only if the patient was incapable of providing necessary information or participating in decision making. 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
--- NOTE | 2024-11-13 16:47 | PC.NURSE ---
At approximately 1425, PT came to work with patient, Dr Walton was also at bedside. DUring PT assessment, patient was found to have right sided weakness. Heat CT ordered and patient taken to CT. CT resulted at 1449 and results called to Dr castellanos. SHows a posterior stroke. Dr koroma was contacted. Not a candidate for thrombolytics due to recent right femur surgery. NIHSS made difficult to accurately asses, potential due to lack of cooperation. He refuses to participate in the assessment. He will not squeeze nurses fingers with either hand, But he has been attempting to pull out his todd and has strong dorr operator in left hand. Nurse will see him move right arm, but when prompted to do so for nih checks he will not. When nurse asks him if he understands the questions he will answer yes. When asked if his is capable of following the instructions he says yes. When asked why he wont follow the instructions he remains silent. When asked if he is refusing to follow the instructions he shakes his head yes. Not sure if this is mental status changes related to the stroke, or if he is being purposefully uncooperative since the patient has been uncooperative earlier in the hospital stay, frequently attempting removal of lines, attempting to remove todd catheter, and pulling off monitoring.
[2024-11-13 17:01] LABS: Reflex FDPQ test REFLEX FDP QUEST TES
[2024-11-13 17:17] LABS: INR 1.11 (0.8-1.2)
[2024-11-13 17:18] LABS: Fibrinogen 406 mg/dL (174-498)
[2024-11-13 17:22] LABS: D Dimer 1.49 ug/mLFEU (0-0.59)
--- NOTE | 2024-11-13 17:35 | P.CONIM_ITS ---
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 The patient was admitted on 11/09/2024 after reported fall with fracture of the right lower extremity. Noncontrast head CT was obtained on 11/09/2023 and revealed no acute findings. Patient was admitted to the intensive care unit. Patient underwent surgery for right lower extremity fracture on 11/10/2023. Patient was reported to have change in mental status and on 11/13/[address] was obtained and revealed acute left posterior circulation distribution stroke. As a result, code stroke was initiated. Due to the patient's last known well unable to be determined as well as the patient's history of recent diminished pulses in his lower extremities as well as a long spiral femoral shaft and subtrochanteric femur fracture requiring surgery on 11/10/2023 the patient was not a candidate for intravenous thrombolytics and no intravenous thrombolytics were administered. NIH score = 7 (secondary to patient not participating in questioning = 2 or following commands = 2 and right upper extremity weakness =2, sleepy but arousable = 1). Point of contact glucose = 149. 2D echocardiogram 11/09/2023 revealed the following: LV systolic function is mildly reduced with EF of 45 to 50%. Drug allergies: None Current Home medications: Aspirin 81 mg p.o. daily Probiotic capsule 1 p.o. daily Multivitamin 1 p.o. daily Sotalol 80 mg p.o. twice daily Habits: Unable to obtain from the patient Family history: Unable to obtain from patient Review of Systems 2 General: Reports: ROS unobtainable due to medical condition Medications/Allergies Home Medications Medication Instructions Recorded Confirmed Last Taken Type sotalol 80 mg tablet 80 mg PO BID 07/08/21 11/09/2411/08/25 History L.acidophil-L.casei-B.bifid-B.longum-FOS 1 cap PO DAILY 11/09/24 11/09/24 11/08/24 History 2 billion cell-50 mg capsule (Probiotic Blend) aspirin 81 mg tablet,delayed 81 mg PO DAILY 11/09/24 11/09/24 11/08/24 History release (Khushboo Low Dose Aspirin) jwqgtcbs-hzbm-tbzql acid 400 1 tab PO DAILY 11/09/24 11/09/24 11/08/24 History mcg-lycopene 600 mcg-ginkgo 120 mg tablet (One Daily Men's 50 Plus Memory Support) Allergies Allergy/AdvReac Type Severity Reaction Status Date / Time No Known Allergies Allergy Verified 05/05/24 09:40 Current Medications Generic Name Dose Route Start Last Admin Trade Name Freq PRN Reason Stop Dose Admin Aspirin 81 mg 11/13/24 15:50 11/13/24 17:33 Aspirin 81 Mg Ec Tablet PO Not Given DAILY EL Donepezil HCl 10 mg 11/12/24 21:00 11/12/24 22:16 Donepezil 5 Mg Tablet PO Not Given BEDTIME EL Enoxaparin Sodium 30 mg 11/11/24 21:00 11/12/24 21:52 Enoxaparin 30 Mg/0.3 Ml Syringe SUBCUT 30 mg Q24H EL Administration Norepinephrine Bitartrate 4 mg in 250 mls @ 0 mls/hr 11/11/24 01:15 11/13/24 03:21 Levophed IV 4 mcg/min .Q0M EL 15 mls/hr Administration Protocol Per Protocol Amiodarone HCl/Dextrose 360 mg in 200 mls @ 0 mls/hr 11/12/24 18:28 11/13/24 12:57 Nexterone IV 0.5 mg/min .Q0M EL 16.67 mls/hr Administration Protocol Per Protocol Morphine Sulfate 2 mg 11/09/24 06:08 11/13/24 15:00 Morphine 4 Mg/Ml Sdv 1 Ml IVP 2 mg Q4H PRN Administration Hip pain Oxycodone HCl 5 mg 11/11/24 00:04 11/12/24 13:38 Oxycodone 5 Mg Ir Tab/Cap PO 5 mg Q4H PRN Administration MODERATE PAIN Pantoprazole Sodium 40 mg 11/09/24 09:00 11/13/24 17:33 Pantoprazole 40 Mg Sdv IVP 40 mg BID EL Administration Sodium Chloride 50 ml 11/13/24 09:18 11/13/24 12:54 Sodium Chloride 0.9% 100 Ml Bag IV 11/14/24 09:18 50 ml PRN PRN Administration Blood transfusion prime and flush Thiamine HCl 100 mg 11/13/24 09:00 11/13/24 09:42 Thiamine 100 Mg/Ml Sdv IVP 100 mg DAILY EL Administration PFSH Acute 2 PFSH: Medical History (Updated 11/13/24 @ 16:35 by Rios Garvey MD) Alzheimer disease HTN (hypertension) Obsessive compulsive disorder Surgical History (Updated 11/09/24 @ 08:28 by Tank Cruz MD) Hx of CABG Social History Smoking and tobacco/nicotine status: never used tobacco/nicotine Alcohol intake: never Substance/Drug Use: never Vitals/I&O/Wt Last Vital Signs Temp 98.9 F 11/13/24 13:22 Pulse 87 11/13/24 14:15 Resp 18 11/13/24 15:00 BP 113/63 11/13/24 14:15 Pulse Ox 99 11/13/24 15:00 O2 Del Method Room Air 11/13/24 13:15 O2 Flow Rate 3 11/11/24 22:15 11/13/24 11/13/24 11/13/24 06:59 14:59 22:59 Intake Total 1244.391 / 1580.203 741.25 / 741.25 Output Total 200 / 350 50 / 50 Balance 1044.391 / 1230.203 691.25 / 691.25 Weight last 48 hrs Weight 169 lb 9.6 oz Weight 167 lb 4.8 oz Physical Exam 2 Narrative: Repeat noncontrast head CT 11/13/2024 was obtained and revealed acute left posterior circulation distribution stroke. NIH score = 7 (secondary to patient not participating in questioning = 2 or following commands = 2 and right upper extremity weakness =2, sleepy but arousable = 1). Point of contact glucose = 149. The patient is currently alert. At times the patient will closes eyes as if he is asleep but will arouse to tactile stimuli. Patient speech is clear but he refuses to cooperate with questioning or commands. Head atraumatic. Neck supple. Cranial nerves II through XII revealed no obvious facial weakness. Pupils 3 mm reactive to light and accommodation. Motor testing patient moves both lower extremities to mild pressure applied to his nailbeds. Patient has recent surgery for right leg fracture of the femur surgery performed on 11/10/2024. Motor testing in the left upper extremity is 5/5 in the left arm is restrained. Right upper extremity reveals some stiffness with weakness and at least 2/5 strength. Patient does move the right upper extremity some but keeps the right arm in a flexed position. Deep tendon reflexes difficult to assess but reveals plantar responses bilaterally. There was no clonus. Sensory examination was intact to touch and mild painful stimuli. Throat clear. Lungs clear. Heart regular rhythm and rate. Extremities were negative for cyanosis. Urinary Catheter Management: Cooper: Cath Placed During This Visit: yes Reason for Continuing Indwelling Catheter: Accurate Measurement of Urinary Output in Critically Ill Patients Urinary Catheter Date of Insertion: 11/09/24 Urinary Catheter Time of Insertion: 05:58 Data 11/13/24 04:13 11/13/24 04:13 A&P Assessment and plan (1) Acute ischemic left [employer] stroke: Impression: 1. Acute left posterior circulation stroke reported on noncontrast head CT 11/13/2024 Note: Due to last known well unable to be substantiated and patient underwent surgery for right femoral fracture 11/10/2024, patient was not a candidate for intravenous thrombolytics and no intravenous thrombolytics were administered 2. History of senile dementia of the Alzheimer's type 3. History of alcohol abuse 4. Diminished pulses in his lower extremities 5. Long spiral femoral shaft and subtrochanteric femur fracture requiring surgery on 11/10/2023 6. Anemia requiring blood transfusion H&H 8.8 and 24.4 respectively and platelet count 105,000 on 11/13/2024 7. Renal insufficiency with elevated creatinine 1.8 on 11/13/2024 Plan: 1. Keep head of bed elevated to 30 degrees as needed/tolerated to help minimize cerebral edema 1a. Recommend obtaining carotid duplex study to assess for carotid or vertebral artery stenosis 2. Agree with starting cholesterol-lowering agent per NIH stroke protocol 3. Agree with starting aspirin 325 mg suppository or orally as tolerated per NIH stroke protocol and monitor H&H and platelet counts and discontinue if platelet counts are H&H decreases 4. Vitals, and neurochecks per ICU/NIH stroke protocol 5. Consider starting thiamine 100 mg IV daily since patient has reported history of alcohol use/abuse 6. Recommend obtaining Occupational Therapy physical therapy and speech therapy consults Consult Attestations 2 Medical Necessity Statement: The patient was evaluated for change in mental status and acute stroke/acute care Coding Level of Care Code 38206 Diagnoses Acute ischemic left [employer] stroke I63.532
--- NOTE | 2024-11-13 18:11 | PC.NURSE ---
SHift SUmmary: went for CT today due to stroke symptoms (right arm weakness). CT confirmed stroke, not a candidate for TPA due to recent surgery. Patient refuses aspirin and oral meds. Is often uncooperative with care, refuses all oral meds, will refuse to take part in NIHSS assessment, will attempt to pull out IV and catheter. Will grab genitals and squeeze, causing bruising. restraints in place. Patient rarely speaks, but will sometimes ask for something to drink, or have mumblesd speech sounding like he is say take me out to the [facility] .
--- NOTE | 2024-11-13 19:11 | PC.NURSE ---
At shift change, Nurse did NIH assessment with poured pipe maker nurse. Patient continues to not cooperate with the assessment, but other behaviors suggest improvement in right side strength. Using the right arm, though impaired, he is attempting to pull of gown, pull out catheter, and have a range of motion that bring hand up to his face. Is using right leg to push against the bed.
[2024-11-13] MEDS: OLANZapine 10 mg VIAL IM ×2 (22:46→23:30)
[2024-11-13] MEDS: water for injection-sterile 10 ML (23:32)
--- NOTE | 2024-11-13 23:33 | PC.NURSE ---
The MAR for Zyprexa looks like there are two administrations with one being an over-ride, however, only one 10mg IM dose of Zyprexa has been given at this time.
[2024-11-14] VITALS (41 sets, daily range): BP systolic 86–146; BP diastolic 48–122; PULSE 78–108; RESP 9–30; TEMP 36.3–37; O2SAT 90–100
[2024-11-14] MEDS: morphine 4 mg/mL SDV 1 mL 2 MG IVP ×2 (01:23→08:42)
[2024-11-14 05:12] LABS: Basophils % 0.1 %; Eosinophils # 0.1 10^3/uL (0.0-0.8); Eosinophils % 0.5 %; Hematocrit 28.7 % (37-53); Lymphocytes # 2.5 10^3/uL (0.8-4.8); Mean Corpuscular HGB Conc 33.1 g/dL (30-55); Mean Corpuscular Hemoglobin 31.9 pg (27-33); Mean Corpuscular Volume 96.3 fl (82-101); Mean Platelet Volume 12.1 fL (7.4-10.4); Monocytes # 1.3 10^3/uL (0.2-0.9); Monocytes % 12.3 %; Neutrophils # 6.92 10^3/uL (1.8-7.7); Neutrophils % 63.5 %; Nucleated Red Blood Cells # 0.1 /100WBC; Nucleated Red Blood Cells % 0.6 %; Platelet Count 81 10^3/cmm (157-399); Red Blood Count 2.98 10^6/uL (3.85-5.65); Red Cell Distribution Width 19.7 % (12.1-15.1); White Blood Count 10.89 10^3/uL (3.29-11.43)
[2024-11-14 05:37] LABS: Alanine Aminotransferase 8 U/L (0-41); Albumin Level 2.9 g/dL (3.5-5.2); Alkaline Phosphatase 202 U/L (40-130); Blood Urea Nitrogen 39 mg/dL (8-23); Calcium 7.9 mg/dL (8.5-10.5); Carbon Dioxide 21 mmol/L (22-29); Chloride 105 mmol/L (98-107); Creatinine Clr Calc Pharmacy 41.4287; Globulin 1.9 g/dL (1.3-4.6); Glucose 122 mg/dL (65-115); Osmolality Calculated 299 mOsm/kg (285-295); Sodium 139 mmol/L (136-145); Total Bilirubin 1.8 mg/dL (0.15-1.2); Total Protein 4.8 g/dL (6.6-8.7)
[2024-11-14 05:39] LABS: Chol HDL Ratio 2.44 mg/dL (1.0-5.00); Cholesterol 78 mg/dL (0-200); HDL Cholesterol 32 mg/dL (60-100); LDL Cholesterol Calculated 29 mg/dL (50-129); Magnesium 1.9 mg/dL (1.7-2.3); Triglycerides 87 mg/dL (0-150); VLDL Cholestrol Calculation 17 mg/dL (0-30)
[2024-11-14 05:44] LABS: Anion Gap 17.6 (5-19); Aspartate Amino Transferase 121 U/L (0-40); Potassium 4.6 mmol/L (3.5-5.1)
[2024-11-14] MEDS: pantoprazole 40 mg SDV IVP ×2 (08:35→17:24)
[2024-11-14] MEDS: sodium chloride 0.9% 1,000 ML 50 ML IV (08:59)
[2024-11-14] MEDS: diphenhydrAMINE 50 mg/mL SDV 1mL 25 MG IVP (09:06)
--- NOTE | 2024-11-14 13:34 | P.PN_ITS ---
Subjective 2 Subjective: No acute events overnight. It seems patient was given IM olanzapine for possible agitation. Today morning patient was awake, not alert. Following directions on and off but unable to participate in examination. Has remained hemodynamically stable and afebrile. Remains on room air. Levophed weaned off earlier today morning. Medications: Reviewed: Yes Vitals/I&O/Wt Last Vital Signs Temp 97.3 F L 11/14/24 09:30 Pulse 90 11/14/24 09:30 Resp 21 H 11/14/24 09:30 BP 100/69 11/14/24 09:30 Pulse Ox 97 11/14/24 09:30 O2 Del Method Room Air 11/14/24 09:30 O2 Flow Rate 3 11/11/24 22:15 11/13/24 11/14/24 11/14/24 22:59 06:59 14:59 Intake Total 400.75 / 1271.75 219.159 / 1490.909 133.625 / 133.625 Output Total 150 / 200 150 / 350 Balance 250.75 / 1071.75 69.159 / 1140.909 133.625 / 133.625 Weight last 48 hrs Weight 76.43 kg Weight 76.929 kg Physical Exam 2 Narrative: General: No acute distress, AO times x 2-3, slow to respond HEENT: PERRLA, right pupil dilated, sluggishly reactive Chest: Bilateral bronchial breath sounds over lung. 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 New since 11/09. Aspirin 325 mg one-time followed by 81 mg daily, atorvastatin 40 mg daily. Next appreciate A1c. Check lipid panel. Carotid Doppler. Will consult neurology for further recommendations. Continue with PT/speech evaluation. Permissible hypertension. For now we will continue with Levophed keeping mean arterial pressure more than 65. Hold off on antihypertensives. Patient does have thrombocytopenia. Will check DIC panel (2) Fracture, subtrochanteric, right femur, closed: Postoperative day 3. Did develop postoperative hemorrhagic shock. Hemoglobin stable now. Target hemoglobin more than 8 given history of CAD. Continues to remain on Levophed. Continued Cooper catheterization. Physical therapy. Qualifiers: Encounter type: initial encounter Fracture alignment: displaced Qualified Code(s): S72.21XA - Displaced subtrochanteric fracture of right femur, initial encounter for closed fracture (3) Postoperative hemorrhagic shock: Associated with acute kidney injury. Target hemoglobin more than 8. Still requiring Levophed to maintain mean artery pressure over 65. Hemoglobin has remained stable around 8. 9.1 yesterday. Will transfuse 1 more unit of PRBC. Wean Levophed keeping mean arterial pressure over 65. (4) IGGY (acute kidney injury): Most likely in setting of postoperative shock along with bladder outlet obstruction. Baseline creatinine less than 1. Currently improving down to 1.8. Associated with mild metabolic acidosis, improving today. Medical reconciliation done for nephrotoxic drugs. Monitor urine output. Cooper catheterization. Hold off on IV fluids today as patient will be getting blood transfusion. (5) Bladder outlet obstruction: Will need to discharge on Cooper catheter. Follow-up with urology as an outpatient. (6) Thrombocytopenia: Acute. Could be in setting of shock. Cannot rule out in setting of chronic alcohol use. Continue to monitor. Post platelet transfusion. Given new stroke will check DIC panel. (7) Chronic alcohol use: Consumes whiskey daily in the afternoon. Check thiamine level. Received thiamine 500 mg IV one-time, continue with 100 mg daily for now. CIWA protocol when needed. (8) Encephalopathy: Most likely a combination of Alzheimer's along with possible Wernicke's in setting of chronic alcohol use. Cannot rule out mild sundowning given postoperative status. Continue with thiamine 100 mg IV daily. Continue with donepezil nightly. Frequent reorientation. Fall precautions. (9) Cardiomyopathy: Echocardiogram shows EF of 45 to 50%, grade 1 diastolic dysfunction, mild MR. Does have a history of CAD in the past. Denies any chest pain. Will benefit from possible ACS workup as an outpatient. Having frequent trigeminy's. Check EKG. Target potassium around 4, magnesium around 2. If continues to have frequent trigeminy's and remains in shock will benefit from possible amiodarone. (10) Coronary artery disease: (11) HTN (hypertension): (12) Dehydration: (13) Alzheimer disease: Plan CODE STATUS: DNR/DNI. Grandson is DPOA. 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 In case of additional cardiac arrest he had previously decided he would not want further resuscitation due to high likelihood of additional brain injury. Regular diet. Concerns for mild aspiration. Speech evaluation. Physical therapy. Lovenox for DVT prophylaxis. Plan for the day: Continue with aspirin, statin. PT/speech evaluation. Start on diet as per speech evaluation. Patient seem to be having extrapyrmidal effects of higher dose of olanzapine he received last night. Will try 25 mg of IV Benadryl 1 time. Patient's mentation has been on and off for last 3 days. He has not been able to follow directions or participated physical therapy. He has been able to tell me his name and being in hospital on and off for last 2 days. 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 Will consult psychiatry to determine if patient has capacity to make his own medical decisions. Check ammonia levels. LFTs slightly more deranged than usual. Discontinue amiodarone drip. Switch to 200 mg oral twice daily. Continue with Aricept p.o. 10 mg at bedtime. DC Cooper catheter. Start on NS at 50 cc/h. Continue with IV thiamine but will increase dose to 5 mg daily for overall 3 days. Renal functions improving. Creatinine down to 1.4. Continue to monitor thrombocytopenia. Discontinue restraints. If needed will order sitter. Levophed turned off earlier today morning. If remains off for 24 hours can plan to transfer to [facility] floor. Tried calling patient's grandson over the phone for update on patient's condition along with discussion of goals of care but unfortunately not able to get through. Voice message left. 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
--- NOTE | 2024-11-14 13:39 | P.PN_ITS ---
Subjective 2 Subjective: Patient is more confused and does not respond today. He will move both right extremities. There appears to be slight increase in strength. Medications: Reviewed: Yes Vitals/I&O/Wt Last Vital Signs Temp 97.3 F L 11/14/24 09:30 Pulse 90 11/14/24 09:30 Resp 21 H 11/14/24 09:30 BP 100/69 11/14/24 09:30 Pulse Ox 97 11/14/24 09:30 O2 Del Method Room Air 11/14/24 09:30 O2 Flow Rate 3 11/11/24 22:15 11/13/24 11/14/24 11/14/24 22:59 06:59 14:59 Intake Total 400.75 / 1271.75 219.159 / 1490.909 133.625 / 133.625 Output Total 150 / 200 150 / 350 Balance 250.75 / 1071.75 69.159 / 1140.909 133.625 / 133.625 Weight last 48 hrs Weight 168 lb 8 oz Weight 169 lb 9.6 oz Physical Exam 2 Const: COMMON NORMALS: no acute distress, average body habitus, patient oriented x3 and alert GENERAL APPEARANCE: cooperative, comfortable and other ORIENTATION/CONSCIOUSNESS: Yes awake HENMT: COMMON NORMALS: normocephalic and atraumatic HEAD & SCALP: n ormocephalic and atraumatic Eye: GENERAL EYE: appearance normal, both eyes and all related structures Chest: COMMONS NORMALS: normal inspection of the chest Resp: COMMON NORMALS: normal respiratory effort EFFORT & INSPECTION: Yes able to speak in complete sentences and Yes symmetric chest movement Extremity: NARRATIVE EXTREMITY EXAM: There appears to be better strength in the right upper and lower extremities. He will spontaneously move the foot and arm. There is some drainage from the wound which is not unanticipated secondary to beginning physical therapy and being more active. He is less responsive today, however. Neuro: COMMON NORMALS: patient oriented x3 SENSORIUM/ORIENTATION: Yes alert Psych: COMMON NORMALS: mental status grossly normal APPEARANCE: Yes grossly normal ATTITUDE: Yes calm and Yes engaged ATTENTION/CONCENTRATION: Yes attention grossly intact Skin: COMMON NORMALS: no rashes or lesions noted GENERAL SKIN EXAM: no rashes or lesions noted Urinary Catheter Management: Cooper: Cath Placed During This Visit: yes Reason for Continuing Indwelling Catheter: Accurate Measurement of Urinary Output in Critically Ill Patients Urinary Catheter Date of Insertion: 11/09/24 Urinary Catheter Time of Insertion: 05:58 Data 11/14/24 04:45 11/14/24 04:45 A&P Assessment and plan (1) Displaced spiral fracture of shaft of left femur: Patient continues in the ICU following open reduction internal fixation of right subtrochanteric and femoral shaft fractures. Currently, they are weaning his pressors. He is eating, but is still somewhat confused. He will need to be touchdown weightbearing when he is able to get up with physical therapy. As noted previously, the patient studies were positive for CVA. This is being treated by the hospitalist team and Dr. Langford from neurology. Physical therapy continues to see him and when he is able to ambulate, they are advised that he is to be touchdown weightbearing on this right lower extremity. Qualifiers: Encounter type: initial encounter Fracture type: closed Qualified Code(s): S72.342A - Displaced spiral fracture of shaft of left femur, initial encounter for closed fracture (2) Fracture, subtrochanteric, right femur, closed: Qualifiers: Encounter type: initial encounter Fracture alignment: displaced Qualified Code(s): S72.21XA - Displaced subtrochanteric fracture of right femur, initial encounter for closed fracture Attestations 2 Medical Necessity Statement*: Per hospitalist team. Coding Level of Care Code Acute Code for Chg Fwd Diagnoses Closed displaced spiral fracture of shaft of left femur, initial encounter S72.342A Encounter type: initial encounter Fracture type: closed Closed displaced subtrochanteric fracture of right femur, initial encounter S72.21XA Encounter type: initial encounter Fracture alignment: displaced
[2024-11-14 14:06] LABS: Ammonia 19 umol/L (16-60)
[2024-11-14] MEDS: acetaminophen 500 mg Tablet PO (17:25)
[2024-11-14] MEDS: amiodarone 200 mg Tablet PO (17:25)
[2024-11-14] MEDS: enoxaparin 30 mg/0.3 mL Syringe SUBCUT (22:01)
[2024-11-15] VITALS (17 sets, daily range): BP systolic 95–121; BP diastolic 57–80; PULSE 60–113; RESP 10–20; TEMP 36.4–36.7; O2SAT 94–100
--- NOTE | 2024-11-15 04:21 | PC.NURSE ---
Pulses: B. pedal pulses present w/ doppler.
[2024-11-15] MEDS: morphine 4 mg/mL SDV 1 mL 2 MG IVP (04:22)
[2024-11-15] MEDS: sodium chloride 0.9% 1,000 ML 50 ML IV (05:02)
[2024-11-15 05:24] LABS: Eosinophils # 0.1 10^3/uL (0.0-0.8); Eosinophils % 1.1 %; Hematocrit 27.5 % (37-53); Lymphocytes # 1.7 10^3/uL (0.8-4.8); Lymphocytes % 19.5 %; Mean Corpuscular HGB Conc 32.4 g/dL (30-55); Mean Corpuscular Hemoglobin 31.7 pg (27-33); Mean Corpuscular Volume 97.9 fl (82-101); Monocytes % 11.5 %; Neutrophils # 5.75 10^3/uL (1.8-7.7); Neutrophils % 67.4 %; Nucleated Red Blood Cells % 0.5 %; Platelet Count 77 10^3/cmm (157-399); Red Blood Count 2.81 10^6/uL (3.85-5.65); Red Cell Distribution Width 20.1 % (12.1-15.1); White Blood Count 8.52 10^3/uL (3.29-11.43)
[2024-11-15 05:53] LABS: Magnesium 1.9 mg/dL (1.7-2.3)
[2024-11-15 05:59] LABS: Alanine Aminotransferase 9 U/L (0-41); Albumin Level 2.6 g/dL (3.5-5.2); Alkaline Phosphatase 221 U/L (40-130); Aspartate Amino Transferase 85 U/L (0-40); Blood Urea Nitrogen 39 mg/dL (8-23); Carbon Dioxide 20 mmol/L (22-29); Chloride 109 mmol/L (98-107); Creatinine Clr Calc Pharmacy 44.7785; Globulin 2.3 g/dL (1.3-4.6); Glucose 81 mg/dL (65-115); Osmolality Calculated 302 mOsm/kg (285-295); Sodium 142 mmol/L (136-145); Total Bilirubin 2.1 mg/dL (0.15-1.2); Total Protein 4.9 g/dL (6.6-8.7)
[2024-11-15 06:02] LABS: Anion Gap 17.1 (5-19); Potassium 4.1 mmol/L (3.5-5.1)
--- NOTE | 2024-11-15 06:40 | PC.NURSE ---
1 Void: Unable to measure, incontinence episode.
[2024-11-15] MEDS: pantoprazole 40 mg SDV IVP ×2 (09:00→19:05)
[2024-11-15] MEDS: amiodarone 200 mg Tablet PO ×2 (09:03→17:20)
[2024-11-15] MEDS: aspirin 81 mg EC Tablet PO (09:03)
--- NOTE | 2024-11-15 11:19 | P.NPUCON_ITS ---
Providers/Reason for Consult 2 Consulting Physican/Specialty*: Gianni Wood MD. Psychiatry. Reason for Consult*: Evaluation for capacity. Attending Physician: Rios Garvey MD Primary Care Provider: Vi Chaparro Psych Consult HPI History of Present Illness Israel Hardin is a 84 year old male who presented to the emergency department with the following report: Chief Complaint: Fall Stated Complaint: Fall Time Seen by Provider: 11/09/24 00:07 History of Present Illness: 84-year-old male presented to the emergency department via EMS after a fall with concern for right hip fracture. EMS gave the patient 100 mg of ketamine for pain management with transferring. Patient was sedated and not able to answer any questions. He was admitted to the ICU for definitive treatment of those issues. A psychiatric consult was requested secondary to concerns about him and whether he could provide informed consent. He was a limited historian but did answer some questions. However he contradicted some the information that was reportedly given by family member. Namely there was a discussion that he was still drinking a couple shots daily he denied drinking. But then when questions were asked to specify what he does during the day he was unable or unwilling to answer those questions. When asked how the fall occurred he could not answer any of those questions. We discussed his medical condition and he cannot provide any reproducible information about what his physical ailments are or were, any understanding of having had a stroke or breaking his hip. He could not identify any thoughts or concerns about how the stroke or fractures should be managed. He could not discuss any risks, benefits or alternatives of different ways of managing his situation. He answered I do not know or I do not care about multiple questions or areas. We discussed the fact that we were having a discussion in part to determine whether or not he had capacity for medical decision-making. He denied any psychiatric history. He denied knowledge of where he had worked or when he retired and we discussed his significant deficits in memory and reported may be that he had occasional memory issues. Meds Home Medications and Allergies Home Medications Medication Instructions Recorded Confirmed Last Taken Type sotalol 80 mg tablet 80 mg PO BID 07/08/21 11/09/24 11/08/24 History L.acidophil-L.casei-B.bifid-B.longum-FOS 1 cap PO DAILY 11/09/24 11/09/24 11/08/24 History 2 billion cell-50 mg capsule (Probiotic Blend) aspirin 81 mg tablet,delayed 81 mg PO DAILY 11/09/24 11/09/24 11/08/24 History release (Khushboo Low Dose Aspirin) bznjfabe-ctxo-bqjph acid 400 1 tab PO DAILY 11/09/24 11/09/24 11/08/24 History mcg-lycopene 600 mcg-ginkgo 120 mg tablet (One Daily Men's 50 Plus Memory Support) Allergies Allergy/AdvReac Type Severity Reaction Status Date / Time No Known Allergies Allergy Verified 05/05/24 09:40 Current Medications Current Medications Generic Name Dose Route Start Last Admin Trade Name Freq PRN Reason Stop Dose Admin Acetaminophen 500 mg 11/09/24 06:06 11/14/24 17:25 Acetaminophen 500 Mg Tablet PO 500 mg Q4H PRN Administration fever Amiodarone HCl 200 mg 11/14/24 09:00 11/15/24 09:03 Amiodarone 200 Mg Tablet PO 200 mg BID EL Administration Aspirin 81 mg 11/13/24 15:50 11/15/24 09:03 Aspirin 81 Mg Ec Tablet PO 81 mg DAILY EL Administration Atorvastatin Calcium 40 mg 11/13/24 21:00 11/14/24 21:59 Atorvastatin 40 Mg Tablet PO Not Given BEDTIME EL Donepezil HCl 10 mg 11/12/24 21:00 11/14/24 21:59 Donepezil 5 Mg Tablet PO Not Given BEDTIME EL Enoxaparin Sodium 30 mg 11/11/24 21:00 11/14/24 22:01 Enoxaparin 30 Mg/0.3 Ml Syringe SUBCUT 30 mg Q24H EL Administration Sodium Chloride 1,000 mls @ 50 mls/hr 11/14/24 09:00 11/15/24 05:02 Sodium Chloride 0.9% IV 50 mls/hr .Q20H EL Administration Oxycodone HCl 5 mg 11/11/24 00:04 11/12/24 13:38 Oxycodone 5 Mg Ir Tab/Cap PO 5 mg Q4H PRN Administration MODERATE PAIN Pantoprazole Sodium 40 mg 11/09/24 09:00 11/15/24 09:00 Pantoprazole 40 Mg Sdv IVP 40 mg BID EL Administration Thiamine HCl 500 mg 11/14/24 13:45 11/15/24 09:01 Thiamine 100 Mg/Ml Sdv IVP 11/17/24 13:44 500 mg DAILY EL Administration PFSH NPU 2 PFSH: Medical History (Updated 11/18/24 @ 08:37 by Gianni Wood MD) Alzheimer disease HTN (hypertension) Obsessive compulsive disorder Surgical History (Updated 11/09/24 @ 08:28 by Tank Cruz MD) Hx of CABG Social History Smoking and tobacco/nicotine status: never used tobacco/nicotine Alcohol intake: never Substance/Drug Use: never Mental Status Exam 2 MSE Comments: This is a well-nourished, well-developed, elderly white male, in hospital gown, with limited grooming and adequate eye contact. No abnormal movements, except for psychomotor retardation. Cooperative with exam in no acute distress. Speech was decreased rate and volume. Mood described as fine; affect congruent, subdued and somewhat odd. Thought process, linear. Thought content: patient denied suicidal or homicidal ideation; there were no delusions reported or noted; patient denied auditory or visual hallucinations. Attention, concentration were limited and memory appeared unreliable, but none were formally tested. Alert and oriented times person. Insight and judgment appear impaired and impulse control appears limited. Vitals/I&O/Wt Last Vital Signs Temp 97.5 F L 11/15/24 08:00 Pulse 97 11/15/24 10:00 Resp 13 11/15/24 10:00 BP 108/71 11/15/24 10:00 Pulse Ox 100 11/15/24 10:00 O2 Del Method Room Air 11/15/24 10:00 O2 Flow Rate 3 11/11/24 22:15 11/14/24 11/15/24 11/15/24 22:59 06:59 14:59 Intake Total 650.000 / 931.155 350.000 / 1281.155 Output Total 200 / 200 Balance 450.000 / 731.155 350.000 / 1081.155 Weight last 48 hrs Weight 77.61 kg Weight 76.43 kg Physical Exam 2 Urinary Catheter Management: Cooper: Cath Placed During This Visit: yes, but has since been removed by the nurse Reason for Continuing Indwelling Catheter: Accurate Measurement of Urinary Output in Critically Ill Patients Urinary Catheter Date of Insertion: 11/09/24 Urinary Catheter Time of Insertion: 05:58 Date Urinary Catheter Removed: 11/14/24 Time Urinary Catheter Discontinued: 17:45 Data NPU 11/15/24 04:06 11/15/24 04:06 A&P Assessment and plan (1) Alzheimer disease: (2) Encephalopathy: (3) 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 1. Continue current medication. 2. Patient lacks capacity for informed consent. He is unable to even identify a choice, expressed an understanding of what his condition is and lacks some elements of orientation at times. 3. Would treat medically in keeping with best practice and identify if there was a proxy decision-maker. 4. Please reconsult if there are additional issues. Attestations NPU 2 Medical Necessity Statement*: N/A. Please see primary team note for medical necessity. Coding Level of Care Code Acute Code for [facility] Diagnoses Alzheimer disease G30.9; F02.80 Encephalopathy G93.40 Acute ischemic left [employer]PLIANCE [employer] stroke I63.532 Cognitive decline R41.89 Dementia F03.90
--- NOTE | 2024-11-15 13:43 | P.PN_ITS ---
Subjective 2 Subjective: No acute events overnight. Patient has remained hemodynamically stable and afebrile. Continues to remain on room air. Continues to remain confused and fidgety. On examination he states he he knows who he is but on asking his name he is not able to tell, thinks it is 1983, states he is [place]. On trying to explain the reason for being in the hospital but he declines of having a hip fracture or stroke ever. Medications: Reviewed: Yes Vitals/I&O/Wt Last Vital Signs Temp 97.5 F L 11/15/24 08:00 Pulse 97 11/15/24 10:00 Resp 13 11/15/24 10:00 BP 108/71 11/15/24 10:00 Pulse Ox 100 11/15/24 10:00 O2 Del Method Room Air 11/15/24 10:00 O2 Flow Rate 3 11/11/24 22:15 11/14/24 11/15/24 11/15/24 22:59 06:59 14:59 Intake Total 650.000 / 931.155 350.000 / 1281.155 Output Total 200 / 200 Balance 450.000 / 731.155 350.000 / 1081.155 Weight last 48 hrs Weight 77.61 kg Weight 76.43 kg Physical Exam 2 Narrative: General: No acute distress, AO times x 2-3, slow to respond HEENT: PERRLA, right pupil dilated, sluggishly reactive Chest: Bilateral bronchial breath sounds over lung. Occasional rhonchi CVS: S1-S2 regularly irregular, no murmurs, no tachycardia, no gallops, no rubs Abdomen: Soft, nontender, no organomegaly, bowel sounds present Neuro: Right upper and lower limb 2/5, left 3/5, pupil right dilated, no facial deformity Urinary Catheter Management: Cooper: Cath Placed During This Visit: yes, but has since been removed by the nurse Reason for Continuing Indwelling Catheter: Accurate Measurement of Urinary Output in Critically Ill Patients Urinary Catheter Date of Insertion: 11/09/24 Urinary Catheter Time of Insertion: 05:58 Date Urinary Catheter Removed: 11/14/24 Time Urinary Catheter Discontinued: 17:45 Data 11/15/24 04:06 11/15/24 04:06 A&P Assessment and plan (1) 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 New since 11/09. Aspirin 325 mg one-time followed by 81 mg daily, atorvastatin 40 mg daily. Next appreciate A1c. Check lipid panel. Carotid Doppler. Will consult neurology for further recommendations. Continue with PT/speech evaluation. Permissible hypertension. For now we will continue with Levophed keeping mean arterial pressure more than 65. Hold off on antihypertensives. Patient does have thrombocytopenia. Will check DIC panel (2) Fracture, subtrochanteric, right femur, closed: Postoperative day 3. Did develop postoperative hemorrhagic shock. Hemoglobin stable now. Target hemoglobin more than 8 given history of CAD. Continues to remain on Levophed. Continued Cooper catheterization. Physical therapy. Qualifiers: Encounter type: initial encounter Fracture alignment: displaced Qualified Code(s): S72.21XA - Displaced subtrochanteric fracture of right femur, initial encounter for closed fracture (3) Postoperative hemorrhagic shock: Associated with acute kidney injury. Target hemoglobin more than 8. Still requiring Levophed to maintain mean artery pressure over 65. Hemoglobin has remained stable around 8. 9.1 yesterday. Will transfuse 1 more unit of PRBC. Wean Levophed keeping mean arterial pressure over 65. (4) IGGY (acute kidney injury): Most likely in setting of postoperative shock along with bladder outlet obstruction. Baseline creatinine less than 1. Currently improving down to 1.8. Associated with mild metabolic acidosis, improving today. Medical reconciliation done for nephrotoxic drugs. Monitor urine output. Cooper catheterization. Hold off on IV fluids today as patient will be getting blood transfusion. (5) Bladder outlet obstruction: Will need to discharge on Cooper catheter. Follow-up with urology as an outpatient. (6) Thrombocytopenia: Acute. Could be in setting of shock. Cannot rule out in setting of chronic alcohol use. Continue to monitor. Post platelet transfusion. Given new stroke will check DIC panel. (7) Chronic alcohol use: Consumes whiskey daily in the afternoon. Check thiamine level. Received thiamine 500 mg IV one-time, continue with 100 mg daily for now. CIWA protocol when needed. (8) Encephalopathy: Most likely a combination of Alzheimer's along with possible Wernicke's in setting of chronic alcohol use. Cannot rule out mild sundowning given postoperative status. Continue with thiamine 100 mg IV daily. Continue with donepezil nightly. Frequent reorientation. Fall precautions. (9) Cardiomyopathy: Echocardiogram shows EF of 45 to 50%, grade 1 diastolic dysfunction, mild MR. Does have a history of CAD in the past. Denies any chest pain. Will benefit from possible ACS workup as an outpatient. Having frequent trigeminy's. Check EKG. Target potassium around 4, magnesium around 2. If continues to have frequent trigeminy's and remains in shock will benefit from possible amiodarone. (10) Coronary artery disease: (11) HTN (hypertension): (12) Dehydration: (13) Alzheimer disease: (14) Goals of care, counseling/discussion: Plan CODE STATUS: DNR/DNI. Charlie is DPOA. 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 In case of additional cardiac arrest he had previously decided he would not want further resuscitation due to high likelihood of additional brain injury. Regular diet. Concerns for mild aspiration. Speech evaluation. Physical therapy. Lovenox for DVT prophylaxis. Plan for the day: Appreciate psychiatry recommendations. Patient deemed not to have capacity to make his own medical decisions. Continue with aspirin, statin when possible. Pain medication as possible. Continue with NS at 50 cc/h. Physical therapy when able. Had detailed goals of care discussion with patient's DPOA/grandson over the phone. We discussed that patient's mentation is unfortunately became poor after the stroke which is complicated his baseline dementia, possible Wernicke's behavior chronic alcohol use. Discussed given his poor mentation he has been deemed not to be able to make his own medical decisions. Charlie is agreeable to be the DPOA. He states that around would have never wanted to have the quality of life he has right now. He has always been ambulatory and would not want to have a poor quality of life. He states he would rather have him go hospice. He will discuss further with his family about home with hospice versus hospice to [facility]. Case management alerted. Transfer to med surg floor. 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
--- NOTE | 2024-11-15 14:18 | PC.NURSE ---
Report called to FERMIN Benitez
--- NOTE | 2024-11-15 14:19 | P.PN_ITS ---
Subjective 2 Subjective: Patient is much more alert today. He states that he does not agree that he had a stroke. We are continuing potential rehab with physical therapy. The patient is hemodynamically stable and has no evidence of infection. The patient is insistent that he will be returning to his home. Medications: Reviewed: Yes Vitals/I&O/Wt Last Vital Signs Temp 97.5 F L 11/15/24 08:00 Pulse 97 11/15/24 10:00 Resp 13 11/15/24 10:00 BP 108/71 11/15/24 10:00 Pulse Ox 100 11/15/24 10:00 O2 Del Method Room Air 11/15/24 10:00 O2 Flow Rate 3 11/11/24 22:15 11/14/24 11/15/24 11/15/24 22:59 06:59 14:59 Intake Total 650.000 / 931.155 350.000 / 1281.155 Output Total 200 / 200 Balance 450.000 / 731.155 350.000 / 1081.155 Weight last 48 hrs Weight 171 lb 1.6 oz Weight 168 lb 8 oz Physical Exam 2 Const: COMMON NORMALS: no acute distress, average body habitus, patient oriented x3 and alert GENERAL APPEARANCE: cooperative, comfortable and other ORIENTATION/CONSCIOUSNESS: Yes awake HENMT: COMMON NORMALS: normocephalic and atraumatic HEAD & SCALP: n ormocephalic and atraumatic Eye: GENERAL EYE: appearance normal, both eyes and all related structures Chest: COMMONS NORMALS: normal inspection of the chest Resp: COMMON NORMALS: normal respiratory effort EFFORT & INSPECTION: Yes able to speak in complete sentences and Yes symmetric chest movement Extremity: NARRATIVE EXTREMITY EXAM: There appears to be better strength in the right upper and lower extremities. He will spontaneously move the foot and arm. Drainage from the wound has diminished. This is certainly anticipated and is primarily serous. There is no evidence of ongoing infection at this time. Neuro: COMMON NORMALS: patient oriented x3 SENSORIUM/ORIENTATION: Yes alert Psych: COMMON NORMALS: mental status grossly normal APPEARANCE: Yes grossly normal ATTITUDE: Yes calm and Yes engaged ATTENTION/CONCENTRATION: Yes attention grossly intact Skin: COMMON NORMALS: no rashes or lesions noted GENERAL SKIN EXAM: no rashes or lesions noted Urinary Catheter Management: Cooper: Cath Placed During This Visit: yes, but has since been removed by the nurse Reason for Continuing Indwelling Catheter: Accurate Measurement of Urinary Output in Critically Ill Patients Urinary Catheter Date of Insertion: 11/09/24 Urinary Catheter Time of Insertion: 05:58 Date Urinary Catheter Removed: 11/14/24 Time Urinary Catheter Discontinued: 17:45 Data 11/15/24 04:06 11/15/24 04:06 A&P Assessment and plan (1) Displaced spiral fracture of shaft of left femur: Patient is seen in the ICU, but transfer orders have been written for him to go to the floor. He is to remain touchdown weightbearing for initial ambulatory efforts. He seems more alert, but is denying the hip fracture, femur fracture, and his stroke. Physical therapy is attempting to work with him. He is insistent that he will be going home following rehabilitation here at the hospital. At this point, I will sign off from his care unless I am needed. Please call either me or Janet Infante NP, if you need further input. Qualifiers: Encounter type: initial encounter Fracture type: closed Qualified Code(s): S72.342A - Displaced spiral fracture of shaft of left femur, initial encounter for closed fracture (2) Fracture, subtrochanteric, right femur, closed: Qualifiers: Encounter type: initial encounter Fracture alignment: displaced Qualified Code(s): S72.21XA - Displaced subtrochanteric fracture of right femur, initial encounter for closed fracture Attestations 2 Medical Necessity Statement*: Per hospitalist team Coding Level of Care Code Acute Code for Chg Fwd Diagnoses Closed displaced spiral fracture of shaft of left femur, initial encounter S72.342A Encounter type: initial encounter Fracture type: closed Closed displaced subtrochanteric fracture of right femur, initial encounter S72.21XA Encounter type: initial encounter Fracture alignment: displaced
--- NOTE | 2024-11-15 14:41 | PC.NURSE ---
Notified Patient's grandson of patient being transferred to room 266. Transferred to room 266 via bed by FERMIN kuo
[2024-11-15] MEDS: OLANZapine 10 mg VIAL IM (21:11)
[2024-11-15] MEDS: water for injection-sterile 10 ML (21:12)
[2024-11-16] VITALS (10 sets, daily range): BP systolic 101–127; BP diastolic 57–92; PULSE 70–110; RESP 14–19; TEMP 36.3–37.1; O2SAT 91–96
[2024-11-16] MEDS: morphine 4 mg/mL SDV 1 mL 2 MG IVP (00:26)
--- NOTE | 2024-11-16 08:20 | PC.OT ---
Discharge pt from OT services due to going on hospice at this time.
[2024-11-16] MEDS: pantoprazole 40 mg SDV IVP (09:09)
[2024-11-16] MEDS: morphine 4 mg/mL SDV 1 mL IVP ×2 (12:34→18:38)
[2024-11-16] MEDS: LORazepam 2 mg/mL INJ 1 mL IVP (12:34)
--- NOTE | 2024-11-16 12:35 | PC.SOCIAL ---
IMM Updated Updated pt's grandson via phone on IMM. No questions voiced. Provided a copy. Initialed, dated, & timed copy in chart.
--- NOTE | 2024-11-16 14:26 | P.PN_ITS ---
Subjective 2 Subjective: No acute vents overnight. Patient has remained confused which seems to be his new baseline mentation. Sitter at bedside. Overnight patient did have urinary retention for which Cooper catheter was replaced and 800 cc of urine was evacuated. Medications: Reviewed: Yes Vitals/I&O/Wt Last Vital Signs Temp 97.8 F 11/16/24 11:40 Pulse 95 11/16/24 11:40 Resp 16 11/16/24 12:34 BP 105/63 11/16/24 11:40 Pulse Ox 95 11/16/24 11:40 O2 Del Method Room Air 11/16/24 11:40 O2 Flow Rate 3 11/11/24 22:15 11/15/24 11/16/24 11/16/24 22:59 06:59 14:59 Intake Total 1010 / 1010 Balance 1010 / 1010 Weight last 48 hrs Weight 77.564 kg Weight 77.61 kg Physical Exam 2 Narrative: General: No acute distress, AO times x 2-3, slow to respond HEENT: PERRLA, right pupil dilated, sluggishly reactive Chest: Bilateral bronchial breath sounds over lung. Occasional rhonchi CVS: S1-S2 regularly irregular, no murmurs, no tachycardia, no gallops, no rubs Abdomen: Soft, nontender, no organomegaly, bowel sounds present Neuro: Right upper and lower limb 2/5, left 3/5, pupil right dilated, no facial deformity Urinary Catheter Management: Cooper: Cath Placed During This Visit: yes, but has since been removed by the nurse Reason for Continuing Indwelling Catheter: Accurate Measurement of Urinary Output in Critically Ill Patients Urinary Catheter Date of Insertion: 11/16/24 Urinary Catheter Time of Insertion: 06:11 Date Urinary Catheter Removed: 11/14/24 Time Urinary Catheter Discontinued: 17:45 Data 11/15/24 04:06 11/15/24 04:06 A&P Assessment and plan (1) 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 New since 11/09. Aspirin 325 mg one-time followed by 81 mg daily, atorvastatin 40 mg daily. Next appreciate A1c. Check lipid panel. Carotid Doppler. Will consult neurology for further recommendations. Continue with PT/speech evaluation. Permissible hypertension. For now we will continue with Levophed keeping mean arterial pressure more than 65. Hold off on antihypertensives. Patient does have thrombocytopenia. Will check DIC panel (2) Fracture, subtrochanteric, right femur, closed: Postoperative day 3. Did develop postoperative hemorrhagic shock. Hemoglobin stable now. Target hemoglobin more than 8 given history of CAD. Continues to remain on Levophed. Continued Cooper catheterization. Physical therapy. Qualifiers: Encounter type: initial encounter Fracture alignment: displaced Qualified Code(s): S72.21XA - Displaced subtrochanteric fracture of right femur, initial encounter for closed fracture (3) Postoperative hemorrhagic shock: Associated with acute kidney injury. Target hemoglobin more than 8. Still requiring Levophed to maintain mean artery pressure over 65. Hemoglobin has remained stable around 8. 9.1 yesterday. Will transfuse 1 more unit of PRBC. Wean Levophed keeping mean arterial pressure over 65. (4) IGGY (acute kidney injury): Most likely in setting of postoperative shock along with bladder outlet obstruction. Baseline creatinine less than 1. Currently improving down to 1.8. Associated with mild metabolic acidosis, improving today. Medical reconciliation done for nephrotoxic drugs. Monitor urine output. Cooper catheterization. Hold off on IV fluids today as patient will be getting blood transfusion. (5) Bladder outlet obstruction: Will need to discharge on Cooper catheter. Follow-up with urology as an outpatient. (6) Thrombocytopenia: Acute. Could be in setting of shock. Cannot rule out in setting of chronic alcohol use. Continue to monitor. Post platelet transfusion. Given new stroke will check DIC panel. (7) Chronic alcohol use: Consumes whiskey daily in the afternoon. Check thiamine level. Received thiamine 500 mg IV one-time, continue with 100 mg daily for now. CIWA protocol when needed. (8) Encephalopathy: Most likely a combination of Alzheimer's along with possible Wernicke's in setting of chronic alcohol use. Cannot rule out mild sundowning given postoperative status. Continue with thiamine 100 mg IV daily. Continue with donepezil nightly. Frequent reorientation. Fall precautions. (9) Cardiomyopathy: Echocardiogram shows EF of 45 to 50%, grade 1 diastolic dysfunction, mild MR. Does have a history of CAD in the past. Denies any chest pain. Will benefit from possible ACS workup as an outpatient. Having frequent trigeminy's. Check EKG. Target potassium around 4, magnesium around 2. If continues to have frequent trigeminy's and remains in shock will benefit from possible amiodarone. (10) Coronary artery disease: (11) HTN (hypertension): (12) Dehydration: (13) Alzheimer disease: (14) Goals of care, counseling/discussion: (15) Cognitive decline: Plan CODE STATUS: DNR/DNI. Charlie is DPOA. 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 In case of additional cardiac arrest he had previously decided he would not want further resuscitation due to high likelihood of additional brain injury. Regular diet. Concerns for mild aspiration. Speech evaluation. Physical therapy. Lovenox for DVT prophylaxis. Plan for the day: Patient transitioned over to comfort care/hospice as per discussion with DPOA/grandson over the phone. Orders placed. No further blood work. Vitals as per protocol. Cooper catheterization for urinary retention. Regular diet when able. Morphine and Ativan as needed along with oral oxycodone. Pressure dressings of the wound as needed for patient's comfort. Discharge plan: Will plan to discharge to home with hospice once arrangements for comfort care has been made. 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
[2024-11-17] VITALS (13 sets, daily range): BP systolic 103–115; BP diastolic 65–77; PULSE 80–116; RESP 15–22; TEMP 36.2–36.6; O2SAT 91–97
[2024-11-17] MEDS: morphine 4 mg/mL SDV 1 mL IVP ×5 (04:11→23:50)
[2024-11-17] MEDS: aspirin 81 mg EC Tablet PO (08:52)
[2024-11-17] MEDS: amiodarone 200 mg Tablet PO ×2 (08:53→17:39)
[2024-11-17] MEDS: pantoprazole 40 mg SDV IVP ×2 (08:54→17:39)
--- NOTE | 2024-11-17 14:12 | PM.PN ---
Subjective Subjective: No new complaints. Has remained comfortable. Vitals/I&O/Wt Last Vital Signs Temp 97.1 F L 11/17/24 12:00 Pulse 83 11/17/24 12:00 Resp 16 11/17/24 13:55 BP 103/67 11/17/24 12:00 Pulse Ox 97 11/17/24 13:55 O2 Del Method Room Air 11/17/24 12:00 O2 Flow Rate 3 11/11/24 22:15 Weight last 48 hrs Weight 76.839 kg Weight 77.564 kg Physical Exam Narrative: Deferred due to comfort care status Urinary Catheter Management: Cooper: Cath Placed During This Visit: yes, but has since been removed by the nurse Reason for Continuing Indwelling Catheter: Hospice/Comfort/Palliative Care Urinary Catheter Date of Insertion: 11/16/24 Urinary Catheter Time of Insertion: 06:11 Date Urinary Catheter Removed: 11/14/24 Time Urinary Catheter Discontinued: 17:45 Data 11/15/24 04:06 11/15/24 04:06 A&P Assessment and plan (1) 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 New since 11/09. Aspirin 325 mg one-time followed by 81 mg daily, atorvastatin 40 mg daily. Next appreciate A1c. Check lipid panel. Carotid Doppler. Will consult neurology for further recommendations. Continue with PT/speech evaluation. Permissible hypertension. For now we will continue with Levophed keeping mean arterial pressure more than 65. Hold off on antihypertensives. Patient does have thrombocytopenia. Will check DIC panel (2) Fracture, subtrochanteric, right femur, closed: Postoperative day 3. Did develop postoperative hemorrhagic shock. Hemoglobin stable now. Target hemoglobin more than 8 given history of CAD. Continues to remain on Levophed. Continued Cooper catheterization. Physical therapy. Qualifiers: Encounter type: initial encounter Fracture alignment: displaced Qualified Code(s): S72.21XA - Displaced subtrochanteric fracture of right femur, initial encounter for closed fracture (3) Postoperative hemorrhagic shock: Associated with acute kidney injury. Target hemoglobin more than 8. Still requiring Levophed to maintain mean artery pressure over 65. Hemoglobin has remained stable around 8. 9.1 yesterday. Will transfuse 1 more unit of PRBC. Wean Levophed keeping mean arterial pressure over 65. (4) IGGY (acute kidney injury): Most likely in setting of postoperative shock along with bladder outlet obstruction. Baseline creatinine less than 1. Currently improving down to 1.8. Associated with mild metabolic acidosis, improving today. Medical reconciliation done for nephrotoxic drugs. Monitor urine output. Cooper catheterization. Hold off on IV fluids today as patient will be getting blood transfusion. (5) Bladder outlet obstruction: Will need to discharge on Cooper catheter. Follow-up with urology as an outpatient. (6) Thrombocytopenia: Acute. Could be in setting of shock. Cannot rule out in setting of chronic alcohol use. Continue to monitor. Post platelet transfusion. Given new stroke will check DIC panel. (7) Chronic alcohol use: Consumes whiskey daily in the afternoon. Check thiamine level. Received thiamine 500 mg IV one-time, continue with 100 mg daily for now. CIWA protocol when needed. (8) Encephalopathy: Most likely a combination of Alzheimer's along with possible Wernicke's in setting of chronic alcohol use. Cannot rule out mild sundowning given postoperative status. Continue with thiamine 100 mg IV daily. Continue with donepezil nightly. Frequent reorientation. Fall precautions. (9) Cardiomyopathy: Echocardiogram shows EF of 45 to 50%, grade 1 diastolic dysfunction, mild MR. Does have a history of CAD in the past. Denies any chest pain. Will benefit from possible ACS workup as an outpatient. Having frequent trigeminy's. Check EKG. Target potassium around 4, magnesium around 2. If continues to have frequent trigeminy's and remains in shock will benefit from possible amiodarone. (10) Coronary artery disease: (11) HTN (hypertension): (12) Dehydration: (13) Alzheimer disease: (14) Goals of care, counseling/discussion: (15) Cognitive decline: Plan CODE STATUS: DNR/DNI. Grandson is DPOA. 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 In case of additional cardiac arrest he had previously decided he would not want further resuscitation due to high likelihood of additional brain injury. Regular diet. Concerns for mild aspiration. Speech evaluation. Physical therapy. Lovenox for DVT prophylaxis. Plan for the day: Continue with comfort care/hospice care for now. Remove sitter. Discharge plan: Will plan to discharge to home with hospice once arrangements for comfort care has been made. 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
[2024-11-18 04:00] VITALS: BP 102/69; PULSE 98; RESP 23; TEMP 36.8; O2SAT 98
[2024-11-18 07:35] VITALS: BP 97/56; TEMP 37.2
[2024-11-18] MEDS: pantoprazole 40 mg SDV IVP (09:30)
[2024-11-18 10:53] VITALS: PULSE 98; RESP 20; O2SAT 95
--- NOTE | 2024-11-18 11:25 | PM.DCS ---
Discharge Providers Date of Admission: 11/09/24 12:26 Date of Discharge: November 18, 2024 Attending Provider at Admission: Kandy Joy MD Attending Provider at Discharge: Rios Garvey MD Consults: Orthopedics: Dr. Suarez Psychiatric: Dr. Wood Cardiology: Dr. 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: Status: Acute (4) Cognitive decline: Status: Acute (5) Dementia: Status: Acute Reason for Visit Reason for Visit: Fall Brief History: History as per HPI: Israel Hardin is a 84 year old male with history of dementia, lives alone, lives with his grandson, estranged from his 4 daughters, uses cane for ambulation, presented after sustaining a fall, grandson called 911, in the ER he was diagnosed with right proximal femur fracture, his lower extremities are extremely cold on palpation, CTA lower extremity showed severe atherosclerotic disease no contrast running below popliteal noted likely contrast phasing out, requesting arterial duplex study, please note EMS gave patient ketamine and he was confused at the time of arrival in the ER when I first examined him, after the workup I am examining him at 6 AM, patient is awake and alert stating that he has 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 Previous note of Dr. Rowley reviewed for dementia evaluation. Workup in the ER revealed anemia, obstructive uropathy, Cooper catheter requested, creatinine 1.4 clinically patient looks dehydrated Dr. Walton consulted I would not start patient on heparin in anticipation of hip surgery Requesting records from [facility] Hospital Course Hospital Course Discharged to rehab pericolic. [place] possible acute meningitis few septa [employer] negative alga occult recommend echocardiogram patient was admitted to the hospital further evaluation and management of hip fracture in setting of mechanical fall. On admission he was found to have acute kidney injury most likely in setting of bladder outlet obstruction for which Cooper catheter was placed. Was continued on IV hydration. He was also found to have frequent episodes of VPCs including bigeminy and trigeminy for which echocardiogram was done which showed a new EF of 45 to 50% with grade 1 diastolic dysfunction. Patient underwent ORIF after cardiology clearance on 11/10. His postoperative status was complicated by him developing posthemorrhagic shock requiring more managed by blood transfusions. His hemoglobin has remained stable. Given post operative hemorrhagic shock his renal functions have remained labile but has been more stable for last 3 to 4 days. During hospitalization he continued to have variable to worsening cognition which is thought to be in setting of possible Warnicke's due to daily alcohol use, baseline dementia worsening with sundowning. His hospitalization was further complicated by him developing left SALON SUPERVISOR stroke leading to residual right-sided weakness. Given worsening cognition psychiatry was consulted who deemed patient not to be safe or have capacity to make his own medical decisions. His goals of care were discussed in detail with grandson who is his DPOA who stated that the patient would have not wanted the quality of life he has now and would have wanted to be set up with hospice. He has been discharged home with hospice for further management as per goals of care per his DPOA. Physical Exam Narrative: Deferred due to comfort care status Urinary Catheter Management: Cooper: Cath Placed During This Visit: yes, but has since been removed by the nurse Reason for Continuing Indwelling Catheter: Hospice/Comfort/Palliative Care Urinary Catheter Date of Insertion: 11/16/24 Urinary Catheter Time of Insertion: 06:11 Date Urinary Catheter Removed: 11/14/24 Time Urinary Catheter Discontinued: 17:45 Discharge Data Studies Completed and Pending Completed Studies During Hospitalization Category Date Time Status CT cervical spine wo con [CT cervical spin wo con* Cat Scan 11/09/24 02:01 Completed 27831] Stat CT head wo con* [id number] Routine Cat Scan 11/13/24 14:[address] head wo con* 51567 Stat Cat Scan 11/09/24 02:02 Completed CTA lower extremity [place] [id number]] Cat Scan 11/09/24 01:39 Completed Stat CXRP [XR chest 1V portable [id number]] Routine Exams 11/13/24 10:17 Completed XR femur RT min 2V* [id number] Routine Exams 11/10/24 00:00 Completed XR forearm RT 2V [id number] Routine Exams 11/09/24 14:53 Completed XR hand RT 2V 67954 Routine Exams 11/09/24 14:54 Completed XR hip RT 2-3V wo/w pel* 74597 Stat Exams 11/09/24 00:07 Completed CV. echo complete* 63355 Stat Ultrasound 11/09/24 06:06 Completed US abdomen complete* [id number] Routine Ultrasound 11/11/24 21:35 Completed US arterial duplex lower extremity bilat [CV arterial Ultrasound 11/09/24 06:11 [place] [id number]] Stat US carotid duplex bilateral [CV carotid duplex BI* Ultrasound 11/13/24 14:50 Completed 24180] Routine Pending at discharge Category Date Time Status Fibrinogen Degradation Product Routine Lab 11/13/24 17:01 Received Vitamin B1 (Thiamine),Blood Routine Lab 11/12/24 18:15 Received Radiology Impressions Hip/Pelvis X-Ray 11/09/24 00:07 IMPRESSION: Spiral fracture of the proximal femur with extension into the lesser trochanter as highlighted above. Lower Extremity CTA 11/09/24 01:39 IMPRESSION: 1. Proximal femur fracture as noted above. 2. Likely phase related non opacification of the bilateral lower extremity arteries beginning at the distal femoral arteries bilaterally, given the gradual non opacification of the arterial vasculature. However, this should be correlated with physical exam as thrombosis of the arterial vasculature cannot be entirely excluded. 3. Severe atherosclerotic disease to include the intra-abdominal and peripheral arteries visualized on this examination. 4. 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 Correlate with chronic signs and symptoms of gallbladder dysfunction. 5. Urinary bladder is extremely dilated with regions of pelviectasis and ureterectasis as above. Likely some degree of chronic bladder outlet obstruction given the appearance of the prostate and probable dilated left of midline bladder diverticulum. Consider catheterization in the correct clinical context. ADDENDUM: 11/09/24 0522 ADDENDUM: The above findings and impression were discussed with care provider on 11/09/2024 at 5:[address] 11/09/24 02:01 IMPRESSION: No acute findings. Duplex Scan Lower Extremity Artery 11/09/24 06:11 IMPRESSION: No definite stenosis or occlusion is appreciated. Forearm X-Ray 11/09/24 14:53 IMPRESSION: 1. Negative for fracture or dislocation. 2. Scattered vascular calcifications. Hand X-Ray 11/09/24 14:54 IMPRESSION: 1. 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 2. Moderate to severe 1st carpometacarpal joint and STT joint osteoarthritis. 3. Scattered vascular calcifications. Femur X-Ray 11/10/24 00:00 IMPRESSION: Status post ORIF RIGHT femur fracture in good position and alignment. Abdomen Ultrasound 11/11/24 21:35 IMPRESSION: 1. Gallbladder filled with gallstones. 2. Slightly nodular contour to the liver suspicious for cirrhosis. Chest X-Ray 11/13/24 10:17 IMPRESSION: RIGHT PICC line in good position. Head CT 11/13/24 14:49 IMPRESSION: Acute left posterior cerebral artery territory infarct. ADDENDUM: 11/13/24 1551 ADDENDUM: THIS REPORT CONTAINS FINDINGS THAT MAY BE CRITICAL TO PATIENT CARE. The findings were verbally communicated via telephone conference with RIOS GARVEY at 3:49 PM SECURITY OPERATIONS ANALYST on 11/13/2024. The findings were acknowledged and understood. Laboratory Results WBC 8.52 10^3/uL (3.29-11.43) 11/15/24 04:06 RBC 2.81 10^6/uL (3.85-5.65) L 11/15/24 04:06 Hgb 8.90 g/dL (11.27-16.99) L 11/15/24 04:06 Hct 27.5 % (37-53) L 11/15/24 04:06 MCV 97.9 fl (82-101) 11/15/24 04:06 MCH 31.7 pg (27-33) 11/15/24 04:06 MCHC 32.4 g/dL (30-55) 11/15/24 04:06 RDW 20.1 % (12.1-15.1) H 11/15/24 04:06 Plt Count 77 10^3/cmm (157-399) L 11/15/24 04:06 MPV 13.0 fL (7.4-10.4) H 11/15/24 04:06 Neut % (Auto) 67.4 % 11/15/24 04:06 Lymph % (Auto) 19.5 % 11/15/24 04:06 [place] % (Auto) 11.5 % 11/15/24 04:06 Eos % (Auto) 1.1 % 11/15/24 04:06 Baso % (Auto) 0.0 % 11/15/24 04:06 Reticulocyte % (Auto) 2.3 % (0.5-2.0) H 11/10/24 17:30 Neut # (Auto) 5.75 10^3/uL (1.8-7.7) 11/15/24 04:06 Lymph # (Auto) 1.7 10^3/uL (0.8-4.8) 11/15/24 04:06 [place] # (Auto) 1.0 10^3/uL (0.2-0.9) H 11/15/24 04:06 Eos # (Auto) 0.1 10^3/uL (0.0-0.8) 11/15/24 04:06 Baso # (Auto) 0.0 10^3/uL (0.0-0.1) 11/15/24 04:06 Nucleated RBC % (auto) 0.5 % 11/15/24 04:06 Nucleated RBCs # 0.0 /100WBC 11/15/24 04:06 Peripher Smr Path Cons Sent for review 11/10/24 17:30 Retic Production Index 1.81 11/10/24 17:30 Haptoglobin 120.0 mg/L (30-200) 11/10/24 02:33 PT 15.10 SECONDS (12.1-14.9) H 11/13/24 16:57 INR 1.11 (0.8-1.2) 11/13/24 16:57 APTT 45.0 SECONDS (23.9-36.7) H 11/13/24 16:57 Fibrinogen 406 mg/dL (174-498) 11/13/24 16:57 D-Dimer 1.49 ug/mLFEU (0-0.59) H 11/13/24 16:57 Sodium 142 mmol/L (136-145) 11/15/24 04:06 Potassium 4.1 mmol/L (3.5-5.1) 11/15/24 04:06 Chloride 109 mmol/L (98-107) H 11/15/24 04:06 Carbon Dioxide 20 mmol/L (22-29) L 11/15/24 04:06 Anion Gap 17.1 (5-19) 11/15/24 04:06 BUN 39 mg/dL (8-23) H 11/15/24 04:06 Creatinine 1.3 mg/dL (0.7-1.2) H 11/15/24 04:06 GFR Calculation Not Reportable 11/15/24 04:06 Glucose 81 mg/dL (65-115) 11/15/24 04:06 POC Glucose 149 mg/dL (70-110) H 11/13/24 16:28 Estimat Average Glucose 91 11/12/24 04:57 Hemoglobin A1c 4.8 % (4.0-6.0) 11/12/24 04:57 Calculated Osmolality 302 mOsm/kg (285-295) H 11/15/24 04:06 Calcium 8.0 mg/dL (8.5-10.5) L 11/15/24 04:06 Magnesium 1.9 mg/dL (1.7-2.3) 11/15/24 04:06 Iron 41 ug/dL (59-158) L 11/12/24 04:57 TIBC 151 mcg/dl 11/12/24 04:57 % Saturation 27.1 % (20-50) 11/12/24 04:57 Unsat Iron Binding 110 ug/dL (112-347) L 11/12/24 04:57 Total Bilirubin 2.1 mg/dL (0.15-1.2) H 11/15/24 04:06 AST 85 U/L (0-40) H 11/15/24 04:06 ALT 9 U/L (0-41) 11/15/24 04:06 Alkaline Phosphatase 221 U/L (40-130) H 11/15/24 04:06 Ammonia 19 umol/L (16-60) 11/14/24 13:42 Lactate Dehydrogenase 159 U/L (135-225) 11/10/24 02:33 Creatine Kinase 168 U/L (39-308) 11/09/24 01:01 Troponin T Baseline 33 ng/L (0-15) H 11/09/24 15:09 Troponin T 120 Minute 37.81 ng/L (0-15) H 11/09/24 17:37 Delta Troponin T 4.81 ABS# (0-10) 11/09/24 17:37 Troponin T Hi Sens 6Hr 65.65 ng/L (0-15) H 11/09/24 21:17 Troponin T Hi Sens 6Hr Delta 32.65 ng/L (0-12) H* 11/09/24 21:17 Total Protein 4.9 g/dL (6.6-8.7) L 11/15/24 04:06 Albumin 2.6 g/dL (3.5-5.2) L 11/15/24 04:06 Globulin 2.3 g/dL (1.3-4.6) 11/15/24 04:06 Triglycerides 87 mg/dL (0-150) 11/14/24 04:45 Cholesterol 78 mg/dL (0-200) 11/14/24 04:45 LDL Cholesterol, Calc 29 mg/dL (50-129) L 11/14/24 04:45 Total VLDL Cholesterol 17 mg/dL (0-30) 11/14/24 04:45 HDL Cholesterol 32 mg/dL (60-100) L 11/14/24 04:45 Cholesterol/HDL Ratio 2.44 mg/dL (1.0-5.00) 11/14/24 04:45 Vitamin B12 484 pg/mL (232-1245) 11/09/24 01:01 Folate 11.3 ng/mL (4.5-32.2) 11/13/24 04:13 TSH 2.04 uIU/mL (0.27-4.20) 11/09/24 01:01 Random Cortisol 24.24 ug/dL (2.47-19.5) H 11/12/24 04:57 Urine Color Yellow (Yellow) 11/09/24 10:00 Urine Appearance Clear (CLEAR) 11/09/24 10:00 Urine pH 6.5 (5-7) 11/09/24 10:00 Ur Specific [place] 1.014 (1.005-1.030) 11/09/24 10:00 Urine Protein Negative (Negative) 11/09/24 10:00 Urine Glucose (UA) Negative (Normal) 11/09/24 10:00 Urine Ketones Negative (Negative) 11/09/24 10:00 Urine Blood Negative (Negative) 11/09/24 10:00 Urine Nitrate Negative (Negative) 11/09/24 10:00 Urine Bilirubin Negative (Negative) 11/09/24 10:00 Urine Urobilinogen 0.2 mg/dL (Negative) 11/09/24 10:00 Ur Leukocyte Esterase Negative (Negative) 11/09/24 10:00 Urine RBC 0-2 /hpf (0-2) 11/09/24 10:00 Urine WBC 0-5 /hpf (0-5) 11/09/24 10:00 Ur Squamous Epith Cells 0-5 /hpf (0-5) 11/09/24 10:00 Amorphous Sediment Not Reportable 11/09/24 10:00 Urine Bacteria None seen /hpf (NONE) 11/09/24 10:00 Hyaline Casts 1.65 /lpf 11/09/24 10:00 Blood Type O Positive 11/13/24 11:16 Rho(D) Type Rh positive 11/13/24 11:16 Antibody Screen Negative 11/13/24 11:16 Crossmatch See Detail 11/13/24 11:16 Vitals Last Vital Signs Temp 99 F 11/18/24 07:35 Pulse 98 11/18/24 10:53 Resp 20 H 11/18/24 10:53 BP 97/56 11/18/24 07:35 Pulse Ox 95 11/18/24 10:53 O2 Del Method Room Air 11/18/24 10:53 O2 Flow Rate 3 11/11/24 22:15 Discharge Plan Discharge Patient Disposition: Hospice - Home Condition: Stable Prescriptions: Continued sotalol 80 mg tablet 80 mg PO BID aspirin [Khushboo Low Dose Aspirin] 81 mg Tablet,Delayed Release (Dr/Ec) 81 mg PO DAILY One Daily Men's 50 Plus Memory 400-600-120 mcg-mcg-mg Tablet 1 tab PO DAILY Probiotic Blend 2 billion cell-50 mg Capsule 1 cap PO DAILY Rx Instructions: give with meal/snack Discharge Orders: Discharge Order (Routine); Ordered 11/18/24 Ordered By: Rios Garvey Referrals: Tiara Walton MD [Physician] - 3 weeks (Contact Dr. Walton's office at [phone] for a follow-up within 3 weeks if needed.) Vi Chaparro PA [Primary Care Provider] - (Contact your primary care provider for a follow-up within 4-7 days.) Discharge Activity: Limit activity as instructed, Use walker/crutches as instructed and As per PT/OT instructions Patient Instructions: Hospice Care, Acute Wound Care (DC) Activity Restrictions/Additional Instructions: Home hospice The patient is to remain touchdown weightbearing. He will work with physical therapy to ambulate on a walker as indicated. He will likely need correction at the time of discharge. The distal portion of the wound over the main fracture remains with minimal drainage. The superior wound where the proximal greater trochanter was accessed to place the intertrochanteric nail is bruised there and superiorly. Discharge Attestations Time Spent in Discharge Care*: greater than 30 min Specific Discharge Activities: educating and/or supporting family/caregiver, discussing with pcp/other providers, discussing with telephonic nurse case manager/social workers/dc planners, documenting/other paperwork and evaluating patient/reviewing data Status at Discharge: Cognitive status at discharge: severely impaired cognition, Behavioral status at discharge: cooperative, Functional status at discharge: bed bound, Overall status at discharge: patient has a new baseline Quality Metrics Clinical Quality Measures [ Cerebrovascular Accident { Contraindication to Antithrombotic: None; antithrombotic prescribed; Contraindication to Anticoagulation: Overlap treatment not indicated; Contraindication to Statin: Drug therapy discontinued (Hospice);}] Coding Level of Care Code 49569 Total time (in minutes) for Discharge: 60 Diagnoses Alzheimer disease G30.9; F02.80 Encephalopathy G93.40 Acute ischemic left 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
[2024-11-18 11:50] VITALS: BP 102/73; RESP 16; TEMP 37
[2024-11-18 16:00] VITALS: BP 98/64; RESP 15; TEMP 36.9
--- NOTE | 2024-11-18 16:23 | PC.NURSE ---
IV previously removed. Patient placed in a brief, and transferred over to EMS stretcher with max assist. Patient exited facility at 1617 via stretcher with all belongings. Yariel with [facility] was notified that patient was leaving and a brief report was given.
[2024-11-18 16:27] VITALS: BP 98/64; PULSE 98; RESP 15; TEMP 36.9; O2SAT 95
[2024-11-19 10:09] LABS: Vitamin B1 (Thiamine),Blood 89 nmol/L (78-185)
[2024-11-22 09:19] LABS: Fibrinogen Degradation Product <5 mcg/mL (LESS THAN 5)
== END 2024-11-18 16:30 | disposition hospice, home (50) | DRG 480 ==
LOC: ER 11-09 06:02 → MEDSURG 11-09 12:26 → ICU 11-11 00:22 → MEDSURG 11-15 14:51
PROVIDERS: Anesthesiology; Internal Medicine; Specialist; Admitting Provider Internal Medicine; Emergency Provider General Practice; PCP Physician Assistant; Visit Provider Student in an Organized Health Care Education/Training Program
PROC: (CPT 27245; principal; 2024-11-10 19:30)
DX: S72.21XA Displaced subtrochanteric fracture of right femur, initial encounter for closed fracture (principal); I63.532 Cerebral infarction due to unspecified occlusion or stenosis of left posterior cerebral artery; T81.19XA Other postprocedural shock, initial encounter; E51.2 Wernicke's encephalopathy; G81.91 Hemiplegia, unspecified affecting right dominant side; N13.8 Other obstructive and reflux uropathy; N17.9 Acute kidney failure, unspecified; D62 Acute posthemorrhagic anemia; I42.9 Cardiomyopathy, unspecified; S72.341A Displaced spiral fracture of shaft of right femur, initial encounter for closed fracture; G30.9 Alzheimer's disease, unspecified; F02.80 Dementia in other diseases classified elsewhere, unspecified severity, without behavioral disturbance, psychotic disturbance, mood disturbance, and anxiety; R29.707 NIHSS score 7; I70.203 Unspecified atherosclerosis of native arteries of extremities, bilateral legs; D64.9 Anemia, unspecified; R00.8 Other abnormalities of heart beat; K80.20 Calculus of gallbladder without cholecystitis without obstruction; I25.10 Atherosclerotic heart disease of native coronary artery without angina pectoris; I10 Essential (primary) hypertension; E83.42 Hypomagnesemia; F10.10 Alcohol abuse, uncomplicated; Z51.5 Encounter for palliative care; W19.XXXA Unspecified fall, initial encounter; Z91.81 History of falling; Y83.8 Other surgical procedures as the cause of abnormal reaction of the patient, or of later complication, without mention of misadventure at the time of the procedure; Y92.234 Operating room of hospital as the place of occurrence of the external cause; Z86.718 Personal history of other venous thrombosis and embolism; Z86.74 Personal history of sudden cardiac arrest; Z95.1 Presence of aortocoronary bypass graft; Z79.82 Long term (current) use of aspirin
CPT/HCPCS: 36415; 36416; 36430; 36573; 36592; 51702; 51798; 70450; 71045; 72125; 73090; 73120; 73502; 73552; 73706; 76000; 76700; 80048; 80053; 80061; 80503; 81001; 82140; 82533; 82550; 82607; 82746; 82962; 83010; 83036; 83540; 83550; 83615; 83735; 84425; 84443; 84484; 85014; 85018; 85025; 85045; 85049; 85362; 85378; 85384; 85610; 85730; 86850; 86900; 86920; 92507; 92523; 92526; 92610; 93005; 93306; 93880; 93925; 96360; 96372; 96376; 97110; 97162; 97166; 97530; 97535; 99223; 99285; A4222; C1713; C1751; J0131; J0283; J0690; J1200; J1650; J1940; J2060; J2270; J2371; J2405; J2470; J2704; J3010; J3411; J3490; J7030; J7042; P9016; P9040; P9045; P9046